=== PATIENT | female | born 2000 | race Caucasian/White ===

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

== ENCOUNTER 2023-04-04 11:18 | Outpatient (CLI) | payer OTHER, SELFPAY ==
[2023-04-04 12:49] LABS: Basophils Absolute Auto 0.1 K/mm3 (0.0-0.1); Basophils Percent Auto 0.8 % (0.2-1.2); Eosinophils Absolute Auto 0.2 K/mm3 (0-0.3); Eosinophils Percent Auto 1.8 % (0-4.4); Hematocrit 41.8 % (37.0-47.0); Hemoglobin 14.6 g/dL (12.0-15.0); Immature Granulocyte Absolute 0.04 K/mm3 (0.00-0.031); Immature Granulocyte Percent A 0.4 % (0-0.5); Lymphocytes Absolute Auto 2.61 K/mm3 (0.9-3.2); Lymphocytes Percent Auto 26.9 % (18.3-44.2); Mean Corpuscular HGB Conc 34.9 g/dl (32-36); Mean Corpuscular Volume 82.9 fl (80-100); Mean Platelet Volume 10.2 fl (7.4-10.4); Monocytes Absolute Auto 0.7 K/mm3 (0.1-0.6); Monocytes Percent Auto 6.7 % (2.6-8.5); Neutrophils Absolute Auto 6.2 K/mm3 (1.3-6.7); Neutrophils Percent Auto 63.4 % (45.5-73.1); Platelet Count Result 346 k/mm3 (150-375); Red Blood Count 5.04 M/mm3 (4.2-5.4); Red Cell Distribution Width 12.9 % (11.5-14.5); White Blood Count 9.7 K/mm3 (4.5-10.0)
[2023-04-04 12:57] LABS: Glucose 1 Hour PP 50gm Dose 135 mg/dL
[2023-04-04 13:39] LABS: HIV 1/2 Ab P24 Ag Result Negative (Negative)
[2023-04-04 13:41] LABS: Hepatitis B Surface Antigen Negative (Negative); Rubella IgG Antibody 11.5 IU/ML
[2023-04-07 13:16] LABS: Rapid Plasma Reagin Non-Reactive (NonReactive)
[2023-04-07 15:01] LABS: CMV IgG Antibody <0.60 U/mL (<0.60)
[2023-04-15 16:47] LABS: SMA 2.0 RISK VARIANT NOT DETECTED
[2023-04-16 14:16] LABS: CF Result NEGATIVE (NEGATIVE); Ethnicity NG
[2023-04-23 14:17] LABS: SMA Results Received Yes
== END 2023-04-04 11:19 | disposition home or self-care (01) ==
LOC: ANHLAB 11:19
PROVIDERS: PCP Internal Medicine Gastroenterology; Visit Provider Obstetrics & Gynecology
DX: N94.89 Other specified conditions associated with female genital organs and menstrual cycle (principal)
CPT/HCPCS: 36415; 81220; 81329; 82947; 84702; 85025; 86592; 86644; 86703; 86747; 86762; 86787; 86850; 86900; 86901; 87086; 87088; 87340; G0432

== ENCOUNTER 2023-04-25 18:16 | Emergency (ER) | payer OTHER, SELFPAY ==
[2023-04-25] VITALS (9 sets, daily range): BP systolic 90–130; BP diastolic 53–82; PULSE 57–69; RESP 16–18; TEMP 36.2–36.6; O2SAT 96–100
--- NOTE | 2023-04-25 18:33 | ED.NAVMDI ---
HPI - Nausea/Vomiting/Diarrhea General Chief complaint: Nausea/Vomiting/Diarrhea Stated complaint: Emesis Time Seen by Provider: 04/25/23 18:20 History of Present Illness HPI Narrative: Patient is a 22-year-old female who is currently about 8 weeks here for evaluation of nausea and vomiting x3 days. Patient states that she has been unable to tolerate any p.o. and has vomited after every meal or sips of fluids. Her last meal was [employer]. She denies sick contacts. She denies any abdominal pain, cramping, vaginal bleeding, diarrhea or constipation. Contacted her OB who recommended ED evaluation. First ultrasound was in the beginning of April and was normal. Related Data Home Medications Medication Instructions Recorded Confirmed sertraline 100 mg tablet (Zoloft) 100 mg PO DAILY 09/18/22 04/01/23 nitrofurantoin 100 mg PO Q12H 04/01/23 04/01/23 monohydrate/macrocrystals 100 mg capsule Allergies Allergy/AdvReac Type Severity Reaction Status Date / Time amoxicillin Allergy Unknown Unknown Verified 04/01/23 14:32 clavulanic acid Allergy Unknown Unknown Verified 04/01/23 14:32 Review of Systems Review of Systems: Gen.: Denies fevers or chills Eyes: Denies eye pain or visual change ENT: Denies congestion Respiratory: Denies shortness of breath or cough CV: Denies chest pain or palpitations GI: Reports nausea and vomiting denies burning, urgency, frequency or hematuria Musculoskeletal: Denies back pain or muscle pain Neuro: Denies numbness, tingling, weakness or focal weakness Skin: Denies rash Except as documented, all other systems reviewed and negative [facility] Past Medical History Medical History Acute erythematous tonsillitis Depression Ear infection UTI (urinary tract infection) Surgical History Surgical History History of dental surgery Family History Family History Grandparent Diabetes mellitus Hypertension Mother Bipolar 1 disorder Glaucoma Other Breast cancer Social History Social History (Updated 04/01/23 @ 14:34 by Jordana Talbot MA) Smoking status: Never smoker Alcohol intake: never Substance use: current Substance use type: marijuana Lack of Transportation: No Lack of Food: Never True Current Housing: I Have Housing Concerned About Future Housing: No Difficulty Paying Gas/Electric Bills: No Difficulty Paying for Meds: No Currently Unemployed: No Education: High School Diploma/GED Difficulty w/ Childcare or Family Care: No Living arrangements: with family Occupation/Education: occupation 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 CARDIOVASCULAR: Regular rate and rhythm without murmurs rubs or gallops. ABDOMINAL: Soft, nontender, nondistended, no rebound or guarding MUSCULOSKELETAL: Moves all extremities. No clubbing, cyanosis or edema. NEURO: Awake and alert. Following commands, speech normal, no focal deficits SKIN:: Warm, dry. No rashes lesions or abrasions PSYCHIATRIC: Normal affect/mood, Course Vital Signs Vital signs: Vital Signs Temperature 97.1 F L 04/25/23 18:18 Pulse Rate 69 04/25/23 18:18 Respiratory Rate 16 04/25/23 18:18 Blood Pressure 130/81 04/25/23 18:18 Pulse Oximetry 100 04/25/23 18:18 Oxygen Delivery Room Air 04/25/23 18:18 Temperature 98 F 04/25/23 19:27 Pulse Rate 61 04/25/23 19:27 Respiratory Rate 16 04/25/23 19:27 Blood Press
[2023-04-25] MEDS: FAMOTIDINE 20 MG/2 ML VIAL IV PUSH (18:39)
[2023-04-25] MEDS: METOCLOPRAMIDE HCL INJ 10 MG/2 ML VIAL IV PUSH (18:40)
[2023-04-25] MEDS: diphenhydrAMINE HCl INJ 50 MG/ML VIAL 12.5 MG IV PUSH (18:40)
[2023-04-25] MEDS: LACTATED RINGERS 1,000 ML 999 ML IV CONT ×2 (18:40→20:16)
[2023-04-25 18:54] LABS: Basophils Absolute Auto 0.1 K/mm3 (0.0-0.1); Basophils Percent Auto 0.5 % (0.2-1.2); Eosinophils Absolute Auto 0.1 K/mm3 (0-0.3); Eosinophils Percent Auto 0.5 % (0-4.4); Hemoglobin 14.8 g/dL (12.0-15.0); Immature Granulocyte Absolute 0.07 K/mm3 (0.00-0.031); Immature Granulocyte Percent A 0.5 % (0-0.5); Lymphocytes Absolute Auto 2.15 K/mm3 (0.9-3.2); Lymphocytes Percent Auto 14.7 % (18.3-44.2); Mean Corpuscular HGB Conc 34.4 g/dl (32-36); Mean Corpuscular Volume 84.1 fl (80-100); Mean Platelet Volume 9.6 fl (7.4-10.4); Monocytes Absolute Auto 0.7 K/mm3 (0.1-0.6); Monocytes Percent Auto 4.6 % (2.6-8.5); Neutrophils Absolute Auto 11.6 K/mm3 (1.3-6.7); Neutrophils Percent Auto 79.2 % (45.5-73.1); Platelet Count Result 400 k/mm3 (150-375); Red Blood Count 5.11 M/mm3 (4.2-5.4); Red Cell Distribution Width 12.6 % (11.5-14.5); White Blood Count 14.6 K/mm3 (4.5-10.0)
[2023-04-25 19:04] LABS: Alanine Aminotransferase 42 U/L (6-35); Albumin Level 4.1 g/dL (3.5-5.1); Alkaline Phosphatase 81 U/L (38-126); Anion Gap 11 mmol/L (8-16); Aspartate Amino Transferase 29 U/L (14-36); Bilirubin,Total 0.6 mg/dL (0.2-1.3); Blood Urea Nitrogen 7 mg/dL (7-17); Calcium 8.7 mg/dL (8.4-10.2); Carbon Dioxide 24 mmol/L (22-30); Chloride 103 mmol/L (98-107); Estimated CRCL calculation 176 ml/min; Estimated Glomerular Filt Rate > 60; Glucose 92 mg/dL (65-110); Magnesium 1.9 mg/dL (1.6-2.3); Potassium 3.6 mmol/L (3.4-5.0); Sodium 138 mmol/L (137-145)
[2023-04-25 19:47] LABS: Appearance Urine Turbid (Clear); Bacteria Urine 4+ /hpf; Bilirubin Urine 1+ (Negative); Blood Urine Negative (Negative); Color Urine Dark Yellow (Yellow); Glucose Urine UA Negative (Negative); Ketones Urine 4+ mg/dL (Negative); Leukocyte Esterase Ur 2+ LEU/UL (Negative); Mucus Urine Present /lpf; Nitrate Urine Negative (Negative); Protein Urine 2+ mg/dL (Negative); RBC Urine 0-2 /hpf (0-2); Specific Grav Ur 1.026 (1.001-1.035); Squamous Epithelial Cell Urine Many /hpf (Few); WBC Urine 51-100 /hpf; pH Urine 6.5 (5.0-9.0)
[2023-04-25 19:57] LABS: Add Urine Microscopic? YES
== END 2023-04-25 20:55 | disposition home or self-care (01) ==
PROVIDERS: Emergency Provider Physician Assistant
DX: O21.0 Mild hyperemesis gravidarum (principal); Z3A.08 8 weeks gestation of pregnancy; O23.41 Unspecified infection of urinary tract in pregnancy, first trimester; N39.0 Urinary tract infection, site not specified
CPT/HCPCS: 36415; 80053; 81001; 83735; 85025; 87086; 87088; 96361; 96374; 96375; 99284; J1200; J2765; J7120

== ENCOUNTER 2023-05-22 07:06 | Outpatient (CLI) | payer OTHER, SELFPAY ==
[2023-05-22 07:53] LABS: Glucose Fasting Gestational 102 mg/dL (>/=95)
== END 2023-05-22 07:07 | disposition home or self-care (01) ==
PROVIDERS: Visit Provider Obstetrics & Gynecology
DX: Z34.90 Encounter for supervision of normal pregnancy, unspecified, unspecified trimester (principal)
CPT/HCPCS: 36415; 82105; 82677; 82951; 82952; 84702; 86336

== ENCOUNTER 2023-06-02 07:04 | Outpatient (CLI) | payer OTHER, SELFPAY ==
[2023-06-02 08:08] LABS: Glucose Fasting Gestational 102 mg/dL (>/=95)
== END 2023-06-02 07:05 | disposition home or self-care (01) ==
LOC: ANHLAB 07:05
PROVIDERS: Visit Provider Obstetrics & Gynecology
DX: R73.09 Other abnormal glucose (principal)
CPT/HCPCS: 36415; 82951; 82952

== ENCOUNTER 2024-01-13 22:34 | Emergency (ER) | payer OTHER, SELFPAY ==
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
[2024-01-13 22:36] VITALS: BP 141/97; PULSE 66; RESP 18; TEMP 37.1; O2SAT 100
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
[2024-01-13] MEDS: KETOROLAC 30 MG/ML VIAL (*BKC) IM (23:20)
[2024-01-14 00:42] VITALS: BP 115/86; PULSE 85; RESP 15; O2SAT 99
== END 2024-01-14 00:45 | disposition home or self-care (01) ==
PROVIDERS: Emergency Provider Physician Assistant; PCP Family Medicine
DX: S13.4XXA Sprain of ligaments of cervical spine, initial encounter (principal); F32.A Depression, unspecified; Z87.440 Personal history of urinary (tract) infections; V49.40XA Driver injured in collision with unspecified motor vehicles in traffic accident, initial encounter
CPT/HCPCS: 72125; 72131; 96372; 99284; J1885

== ENCOUNTER 2024-03-06 14:09 | Emergency (ER) | payer OTHER, SELFPAY ==
--- NOTE | ~2024-03-06 | XR_ITS ---
EXAM: XR ankle LT min 3V DATE: 03/06/2024 14:30 HISTORY: rolled in hole today,lateral pain . COMPARISON: None available. FINDINGS: Normal mineralization. No fracture or dislocation. No lytic or blastic lesion. Joint space s are maintained. No erosion or periosteal change. Soft tissues within normal limits. IMPRESSION: No acute osseous finding in the left ankle. Reviewed, dictated and finalized at location K.
[2024-03-06 14:19] VITALS: BP 114/68; PULSE 74; RESP 16; TEMP 36.3; O2SAT 99
--- NOTE | 2024-03-06 14:43 | ED.LOWEXIN ---
HPI - Extremity Injury (Lower) General Chief Complaint: Extremity Injury, Lower Stated Complaint: stepped in a hole/rolled left ankle Time Seen by Provider: 03/06/24 14:39 Source: patient and RN notes reviewed Mode of arrival: ambulatory Limitations: no limitations History of Present Illness HPI Narrative: Patient presents today complaining of left lateral ankle pain. Approximately 1 hour prior to arrival, patient was walking outside her work and rolled her ankle in a hole. Denies numbness or tingling in the leg or foot. Currently rates her pain 5/10, which increases with weight-bearing. She took a dose of Tylenol prior to arrival, which did provide some relief. Related Data Home Medications Medication Instructions Recorded Confirmed labetalol 200 mg tablet 200 mg PO DAILY 03/06/24 03/06/24 norethindrone (contraceptive) 0.35 0.35 mg PO DAILY 03/06/24 03/06/24 mg tablet Allergies Allergy/AdvReac Type Severity Reaction Status Date / Time amoxicillin AdvReac Mild Hives Verified 03/06/24 14:26 clavulanic acid AdvReac Mild Hives Verified 03/06/24 14:26 Review of Systems Review of Systems: CONSTITUTIONAL: Denies body aches, fever, chills, or sweats. EYES: Denies visual changes, redness, or discharge. ENT: Denies rhinorrhea, congestion, sore throat, or otalgia. CARDIOVASCULAR: Denies chest pain, palpitations, or edema. RESPIRATORY: Denies cough or dyspnea. GASTROINTESTINAL: Denies abdominal pain, nausea, vomiting, or diarrhea. GENITOURINARY: Denies dysuria or hematuria. SKIN: Denies rash, itching, or wounds. MUSCULOSKELETAL: Denies back pain, or myalgia.+ left ankle injury NEUROLOGIC: Denies headache, numbness, tingling, or weakness. PSYCH: Denies depression or anxiety. [facility] Past Medical History Medical History Acute erythematous tonsillitis Depression Ear infection UTI (urinary tract infection) Vaginal discharge Surgical History Surgical History History of dental surgery Family History Family History Grandparent Diabetes mellitus Hypertension Mother Bipolar 1 disorder Glaucoma Other Breast cancer Social History Social History Smoking status: Never smoker Alcohol intake: never Substance use: current Substance use type: marijuana Lack of Transportation: No Lack of Food: Never True Current Housing: I Have Housing Concerned About Future Housing: No Difficulty Paying Gas/Electric Bills: No Difficulty Paying for Meds: No Currently Unemployed: No Education: High School Diploma/GED Difficulty w/ Childcare or Family Care: No Living arrangements: with family Occupation/Education: occupation 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 Please see nursing chart for further information. There is no relevant family history pertinent to the presenting complaint Exam Narrative: GENERAL: Well-appearing, well-nourished, and in no acute distress. HEAD: Normocephalic, atraumatic. EYES: EOMI. No redness or drainage. Conjunctivae normal. ENT: Mucous membranes pink and moist. NECK: Normal AROM. CHEST: No respiratory distress. EXTREMITIES: Left ankle: Tenderness to the lateral ankle with mild edema. No tenderness anteriorly, medially, posteriorly. Distal sensation intact. Capillary refill normal. Pedal pulse normal. Full range of motion of the ankle with pain with extension and external rotation. Color normal SKIN: Warm, dry, no rash. Capillary refill
== END 2024-03-06 15:13 | disposition home or self-care (01) ==
PROVIDERS: Emergency Provider Nurse Practitioner; PCP Family Medicine
DX: S93.402A Sprain of unspecified ligament of left ankle, initial encounter (principal); X50.9XXA Other and unspecified overexertion or strenuous movements or postures, initial encounter; F12.90 Cannabis use, unspecified, uncomplicated
CPT/HCPCS: 73610; 99213; G0463

== ENCOUNTER 2024-03-12 12:58 | Emergency (ER) | payer OTHER, SELFPAY ==
[2024-03-12 13:02] VITALS: BP 127/86; PULSE 59; RESP 17; TEMP 36.5; O2SAT 100
--- NOTE | 2024-03-12 13:43 | ED.EYEPROB ---
HPI - Eye Problem General Chief complaint: Eye Problems Stated complaint: foreign body in right eye Time Seen by Provider: 03/12/24 13:13 Source: patient Mode of arrival: ambulatory Limitations: no limitations History of Present Illness HPI Narrative: Patient is a 23-year-old female who presents the ED with report of foreign body to her right eye. Patient reports she was weed whacking just prior to arrival when she felt a piece of grass fly into her right eye. She was unable to remove or find the foreign body. Complains of pain to her eye. Denies vision changes. Reports watery drainage. Related Data Home Medications Medication Instructions Recorded Confirmed labetalol 200 mg tablet 200 mg PO DAILY 03/06/24 03/06/24 norethindrone (contraceptive) 0.35 0.35 mg PO DAILY 03/06/24 03/06/24 mg tablet Allergies Allergy/AdvReac Type Severity Reaction Status Date / Time amoxicillin AdvReac Mild Hives Verified 03/12/24 13:04 clavulanic acid AdvReac Mild Hives Verified 03/12/24 13:04 Review of Systems Review of Systems: CONSTITUTIONAL: Denies fever, chills, or sweats. ENT: See HPI. CARDIOVASCULAR: Denies chest pain. RESPIRATORY: Denies dyspnea. All systems reviewed & are unremarkable except as noted in HPI and below PMFSH Past Medical History Medical History Acute erythematous tonsillitis Depression Ear infection UTI (urinary tract infection) Vaginal discharge Surgical History Surgical History History of dental surgery Family History Family History Grandparent Diabetes mellitus Hypertension Mother Bipolar 1 disorder Glaucoma Other Breast cancer Social History Social History Smoking status: Never smoker Alcohol intake: never Substance use: current Substance use type: marijuana Lack of Transportation: No Lack of Food: Never True Current Housing: I Have Housing Concerned About Future Housing: No Difficulty Paying Gas/Electric Bills: No Difficulty Paying for Meds: No Currently Unemployed: No Education: High School Diploma/GED Difficulty w/ Childcare or Family Care: No Living arrangements: with family Occupation/Education: occupation 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 HEAD: Normocephalic, atraumatic. EYES: PERRL/EOMI, mild R conjunctival injection. Minimal serous drainage. Grass-like FB to medial eye. RESPIRATORY: Airway patent, respirations nonlabored. CARDIOVASCULAR: Regular rate and rhythm MUSCULOSKELETAL: Moves all extremities. No gross deformities. SKIN: Warm, dry, normal color. NEURO: A&O X3. Speech clear. PSYCHIATRIC: Appropriate mood and affect. Normal interaction. Course Vital Signs Vital signs: Vital Signs Temperature 97.7 F 03/12/24 13:02 Pulse Rate 59 L 03/12/24 13:02 Respiratory Rate 17 03/12/24 13:02 Blood Pressure 127/86 03/12/24 13:02 Pulse Oximetry 100 03/12/24 13:02 Oxygen Delivery Room Air 03/12/24 13:02 Temperature 97.7 F 03/12/24 13:02 Pulse Rate 87 03/12/24 14:02 Respiratory Rate 18 03/12/24 14:02 Blood Pressure 124/93 H 03/12/24 14:02 Pulse Oximetry 99 03/12/24 14:02 Oxygen Delivery Room Air 03/12/24 13:02 MDM - Eye Problem MDM Narrative Medical decision making narrative: Patient denies vision changes. Visual acuity equal bilaterally. Obvious foreign body/grass-like material in medial corner of eye. Removed with Q-tip. Re-evaluation with lid eversion does not reveal any further foreign bodies
[2024-03-12] MEDS: OFLOXACIN 0.3% OPHTH SOLN 5 ML BTL 2 DROP RIGHT EYE (13:57)
[2024-03-12 14:02] VITALS: BP 124/93; PULSE 87; RESP 18; O2SAT 99
== END 2024-03-12 14:04 | disposition home or self-care (01) ==
LOC: ANHED 13:53
PROVIDERS: Emergency Provider Physician Assistant; PCP Family Medicine
DX: T15.01XA Foreign body in cornea, right eye, initial encounter (principal); Z87.440 Personal history of urinary (tract) infections; W44.8XXA Other foreign body entering into or through a natural orifice, initial encounter
CPT/HCPCS: 65220; 99283; A9270

== ENCOUNTER 2025-02-16 17:19 | Emergency (ER) | payer OTHER, SELFPAY ==
[2025-02-16] VITALS (15 sets, daily range): BP systolic 98–120; BP diastolic 50–88; PULSE 64–100; RESP 10–18; TEMP 36.4–36.8; O2SAT 99–100
--- NOTE | ~2025-02-16 | CT_ITS ---
CT abdomen pelvis w con Ordering provider: Ana Dunbar PA-C History: 24 years Female with . upper abd pain, n/v/d . Comparison: 10/01/2021 Technique: CT abdomen and pelvis with IV and without oral contrast. Automated exposure control and it erative reconstruction technique were employed. The dose-length product was 1240.05 mGy-cm. 100 mL Om nipaque 350 was given IV. Findings: VISUALIZED LOWER CHEST: Normal. UPPER ABDOMINAL ORGANS: Liver: Hepatomegaly Gallbladder: Normal. Spleen: Normal. Stomach/duodenum: Normal. Pancreas: Normal. Adrenals: Normal. Kidneys: Normal. PELVIC ORGANS: The bladder is underfilled. BOWEL AND MESENTERY: Colon: No evidence of diverticulitis.. Fluid is seen in the large bowel which may indicate diarrhea v ersus enteritis. Clinical correlation advised.The appendix is not demonstrated. Small Bowel: Normal. No obstruction. Peritoneum/mesentery: No free air or free fluid. No mesenteric lymphadenopathy. Small mesenteric lymp h nodes. RETROPERITONEUM: Normal aorta. No retroperitoneal lymphadenopathy. MUSCULOSKELETAL: Superficial soft tissues: The superficial soft tissues are normal. Bones: Normal spine. IMPRESSION: 1. No evidence of appendicitis, diverticulitis or intestinal obstruction. 2. Fluid in the large bowel suggestive of diarrhea versus enteritis. 3. Hepatomegaly. Reviewed, dictated and finalized at location A.
--- OUTSIDE RECORDS SUMMARY | 2025-02-16 17:22 | XMS_ITS | Referral Summary ---
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 12/12/2023 06/21/2024 Overview (01/30/2024): - -Mood- EPDS 11 (never to last question) Discussed s/s of depression and resources. Encouraged to call provider with any mood changes or concerns. -Contraception- Discussed pills, patch, ring, nexplanon, IUDs. Discussed risks/benefits, SE profile of each. Patient chooses: considering COCs -F/U- RTC PRN or for annual WWE UTI symptoms 12/12/2023 06/21/2024 Overview (12/12/2023): 11/29/23: Was treated while inpatient L&D with Macrobid (Ucx contaminated) 12/12/23: Continues to be symptomatic 2+ protein, 3+ leuk in urine Rx Keflex considering urine dip and symptoms Ucx pending, will f/u with susceptibilities Encounter for induction of labor 11/29/2023 06/21/2024 Overview (11/29/2023): Isabella Waldron is a 22 y.o. female at 39w0d who is dated by L=1 and is being admitted for IOL secondary to cHTN . Admit to L&D: Consents signed and placed in chart. Labs: CBC and T&S pending. Induction of labor with oxytocin . FWB: Continuous monitoring. Reactive NST. ID: 3rd trimester HIV (>28 wga) negative on 11/11. GBS negative on 11/11 . RPR on admission: pending. History of genital HSV or HSV 1/2 seropositivity: No. Membrane Status: intact. Indications for UDS: none. Verbal consent obtained for UDS: Not indicated. MOF: Plans to both breast and formula feed. Urine drug screen not indicated. Patient informed of results: N/A. MOC: Undecided on contraception. Pain management: Desires epidural. Post DVT prophylaxis: The patient has the following MAJOR risk factors none and the following MINOR risk factors BMI 30-39 and nicotine use. enoxaparin 40 mg daily will be ordered for VTE prophylaxis . cHTN: on no meds, baseline normal CBC, CMP, UPC. Admit labs pending. Vaping: Vapes nicotine daily. Offer nicotine patch PRN Dysuria: UCx contaminated, UA 3+ LE. Continue Macrobid. care and examination 11/29/2023 06/21/2024 Overview (12/01/2023): # ID: Afebrile. No signs/symptoms of infection. # Heme: Hgb 14.2 > EBL 250 mL. Hemodynamically stable. # CV/Pulm: Chronic hypertension - Blood pressures well controlled on no meds. Asymptomatic, denies FONTANA/RUQ pain/vision changes. CBC/CMP wnl, UPC 0.16. Consented in remote BP monitoring- received text. BP largely normotensive in the last 24 hours. # GI/: Tolerating PO. Voiding spontaneously. #Dysuria: with 3+ LE at clinic visit, UCx contaminated, started on Macrobid. Continue for 7 day course. Symptoms improving. # Pain: Controlled with above regimen. # MOC: Declines until visit. # MOF: Both formula and . Urine drug screen not indicated. Patient informed of results: N/A. # Post DVT prophylaxis: The patient has the following MAJOR risk factors none and the following MINOR risk factors BMI 30-39, nicotine use. enoxaparin 40 mg daily ordered for VTE prophylaxis. # Vaping: Vapes nicotine daily, offer nicotine patches PRN. # Disposition: Follow up task sent to [facility] scheduling pool. Desires discharge home today. Leukocytes in urine 11/18/2023 06/21/20 Overview (11/20/2023): 11/18/23: 3+ leuks in urine at return OB visit Reports urethral irritation Ucx pending Rx Macrobid pending susceptibilities, given symptomatic Gestational proteinuria, antepartum 10/14/2023 06/21/2024 Overview (10/14/2023): Noted proteinuria 1+ Denies neuro symptoms & RUQ pain No edema BP normotensive Baseline Pre-E labs WNL Consider gestational proteinuria and CTM urine dips in clinic CTM for s/s Pre-E Physical exam, annual 07/29/20232023 Assessment & Plan (07/29/2023 10:36 AM CDT): Discussed lifestyle modifications, diet and exercise. Routine blood work ordered/reviewed today. Yearly vision and dental examinations. Rash 07/29/2023 06/21/2024 Overview (07/29/2023): triamcinolone (KENALOG) 0.1 % cream BID Vaginal discharge 11/08/2022 06/24/2023 Assessment & Plan (11/08/2022 9:02 PM CARB[employer] F[employer]NA[employer] OPERATOR HELPER): Self swab done for vaginitis panel. Results came back positive for BV. Patient made aware and treated with Flagyl. Painful urination 11/08/2022 06/24/2023 Assessment & Plan (11/08/2022 9:04 PM [employer] FURNA[employer] OPERATOR HELPER): Urine sent for culture. Treated for UTI with Cipro b.i.d. for 7 days. However urine culture came back negative, patient made aware and told her she could discontinue the Cipro. Prediabetes 10/08/2022 10/08/2022 Disorder of shoulder 04/18/2022 024 Dysmenorrhea 04/18/2022 06/21/2024 Wrist joint pain 04/18/2022 06/21/2024 Class 2 obesity with body ma ss index (BMI) of 36.0 to 36.9 in adult 03/07/2022 06/24/2023 Assessment & Plan (02/17/2023 2:29 PM CDT): Wt Readings from Last 3 Encounters: 02/17/23 106.1 kg (234 lb) 12/31/22 107 kg (236 lb) 11/08/22 108 kg (238 lb) (>99 %, Z= 2.41)* * Growth percentiles are based on CDC (Girls, 2-20 Years) data. BMI Readings from Last 3 Encounters: 02/17/23 38.94 kg/m 12/31/22 39.27 kg/m 11/08/22 39.61 kg/m (98 %, Z= 2.11)* * Growth percentiles are based on CDC (Girls, 2-20 Years) data. Not at goal of bmi <30 Continue diet and exercise BMI Follow-up includes: nutrition counseling and exercise counseling. Assessment & Plan (01/23/2023 11:11 AM CDT): Wt Readings from Last 3 Encounters: 12/31/22 107 kg (236 lb) 11/08/22 108 kg (238 lb) (>99 %, Z= 2.41)* 11/05/22 108 kg (238 lb) (>99 %, Z= 2.41)* * Growth percentiles are based on CDC (Girls, 2-20 Years) data. BMI Readings from Last 3 Encounters: 12/31/22 39.27 kg/m 11/08/22 39.61 kg/m (98 %, Z= 2.11)* 11/05/22 38.44 kg/m (98 %, Z= 2.07)* * Growth percentiles are based on CDC (Girls, 2-20 Years) data. Not at goal of bmi <30 Continue diet and exercise BMI Follow-up includes: nutrition counseling and exercise counseling. Assessment & Plan (12/31/2022 11:15 AM CARBON FURNACE OPERATOR HELPER): Wt Readings from Last 3 Encounters: 12/31/22 107 kg (236 lb) 11/08/22 108 kg (238 lb) (>99 %, Z= 2.41)* 11/05/22 108 kg (238 lb) (>99 %, Z= 2.41)* * Growth percentiles are based on CDC (Girls, 2-20 Years) data. BMI Readings from Last 3 Encounters: 12/31/22 39.27 kg/m 11/08/22 39.61 kg/m (98 %, Z= 2.11)* 11/05/22 38.44 kg/m (98 %, Z= 2.07)* * Growth percentiles are based on CDC (Girls, 2-20 Years) data. Not at goal of bmi <30 Continue diet and exercise BMI Follow-up includes: nutrition counseling and exercise counseling. Assessment & Plan (10/08/2022 12:00 PM CARBON FURNACE OPERATOR HELPER): Wt Readings from Last 3 Encounters: 10/08/22 106.1 kg (234 lb) (>99 %, Z= 2.36)* 07/23/22 105.7 kg (233 lb) (>99 %, Z= 2.35)* 07/04/22 103.4 kg (228 lb) (99 %, Z= 2.30)* * Growth percentiles are based on CDC (Girls, 2-20 Years) data. BMI Readings from Last 3 Encounters: 10/08/22 37.79 kg/m (98 %, Z= 2.04)* 07/23/22 37.63 kg/m (98 %, Z= 2.05)* 07/04/22 36.80 kg/m (98 %, Z= 2.01)* * Growth percentiles are based on CDC (Girls, 2-20 Years) data. Not at goal of bmi <30 Continue diet and exercise BMI Follow-up includes: nutrition counseling and exercise counseling. Assessment & Plan (07/23/2022 10:33 AM CDT): BMI Follow-up includes: nutrition counseling and exercise counseling. Assessment & Plan (07/04/2022 1:06 PM CDT): BMI Follow-up includes: nutrition counseling and exercise counseling. Assessment & Plan (04/18/2022 3:52 PM CDT): BMI Follow-up includes: nutrition counseling and exercise counseling. Assessment & Plan (03/07/2022 9:56 AM CDT): HPI: Condition is not at/near goal A&P: Discussed/ordered labs, encouraged healthy, low carbohydrate lifestyle and at least 150min/week of exercise BMI Follow-up includes: nutrition counseling, exercise counseling and education provided. Current every day smoker 03/07/2022 Overview (06/24/2023): Discussed cessation, resources offered. Immunizations Immunization Administration Dates Next Due DTaP 03/02/2008, 4,06/27/2003,04/25,02/21/2003 HPV, Quadrivalent 10/14/2014,06/13/2014,04/12/20 14 Hep A, Ped Unspecified 11/11/2005,02/20/2005 Hep A, Pediatric 02/21/2004 Hep B / HiB 02/21/2003 Hep B, Adolescent or Pediatric 3,01/21/2003,01/17/2003,12/18 HiB 03/21/2004, 3,04/25/2003,02/21 IPV 03/02/2008, 4,04/25/2003,02/21 Influenza, Live, Intranasal, Quadrivalent 09/13/2014,09/02/2013,09/21/2012,09/05,08/08/2009 Influenza, Quadrivalent, Spl it, Preservative Free, Intramuscular 07/28/2018,08/11/2017,11/07/2016,10/10 Influenza, Unspecified 10/08/2022(Deferr ed: Patient Refused),08/03/2021(Deferred: Patient Refused),08/03/2020(Deferred: Patient Refused),12/12/2006,11/11/2006, 003 MMR 12/24/2024(Deferred: Patient Refused),12/01/2023(Deferred: No longer needed - Rubella immune, vaccine not required),03/02/2008,12/23/2003 Meningococcal Conjugate (Menveo) 08/02/2019 Meningococcal MCV4P (Menactra) 04/12/2014 Pneumococcal Conjugate 7-Valent 06/29/20 04,06/27/2003,04/25/2003,02/21 RSV, Bivalent, Protein Subun it Rsvpref, Diluent (Abrysvo) 11/11/2024 Tdap 10/13/2024,10/14/2023,04/12/2014 Varicella 12/01/2023(Deferred: No longer needed - Varicella unknown),06/13/2014,03/02/2008, 004 Social History Tobacco Use Types Packs/Day Years Used Date Smoking Tobacco: Every Day Vaping Smokeless Tobacco: Never Tobacco Cessation:Ready to Q uit: Not Asked; Counseling Given: Not Answered [facility] Utilities Answer Date Recorded In the past 12 months has th e electric, gas, oil, or water [employer] threatened to shut off services in your home? No 12/01/2023 Humiliation, Afraid, Rape, and Kick questionnair e Answer Date Recorded Within the last year, have y ou been afraid of your partner or ex-partner? No 05/21/2024 Within the last year, have y ou been humiliated or emotionally abused in other ways by your partner or ex-partner? No Within the last year, have y ou been kicked, hit, slapped, or otherwise physically hurt by your partner or ex-partner? No 05/21/2024 Within the last year, have y ou been raped or forced to have any kind of sexual activity by your partner or ex-partner? No 05/21/2024 Social Connection and Isolation Panel [NHANES] A nswer Date Recorded In a typical week, how many times do you talk on the phone with family, friends, or neighbors? Three times a week 12/23/2024 How often do you get togethe r with friends or relatives? Three times a week 12/23/2024 How often do you attend chur ch or yazidism services? Never 12/23/2024 Do you belong to any clubs o r organizations such as buddhist groups, unions, fraternal or athletic groups, or school groups? No 12/23/2024 How often do you attend meet ings of the clubs or organizations you belong to? Never 12/23/2024 Are you , , di vorced, , never , or living with a partner? Never 12/23/2024 AUDIT-C Answer Date Recorded Q1: How often do you have a drink containing alcohol? Never 05/21/2024 Q2: How many drinks containi ng alcohol do you have on a typical day when you are drinking? Patient does not drink Q3: How often do you have si x or more drinks on one occasion? Never 05/21/2024 Overall Financial Resource Strain (CARDIA) Answe r Date Recorded How hard is it for you to pa y for the very basics like food, housing, medical care, and heating? Not hard at all 12/23/2024 PHQ-2 Answer Date Recorded PHQ-2 Total Score (If total score is 3 or more points, staff should administer the PHQ-9) 0 12/27/2024 [facility] - Occupational Stress Questionnaire Answer Date Recorded Do you feel stress - tense, restless, nervous, or anxious, or unable to sleep at night because your mind is troubled all the time - these days? Not at all 05/21/2024 Exercise Vital Sign Answer Date Recorde d On average, how many days pe r week do you engage in moderate to strenuous exercise (like a brisk walk)? 1 day 05/21/2024 On average, how many minutes do you engage in exercise at this level? 30 min 05/21/2024 Hunger Vital Sign Answer Date Recorded Within the past 12 months, y ou worried that your food would run out before you got the money to buy more. Never true 02/04/20 25 Within the past 12 months, t he food you bought just didn't last and you didn't have money to get more. Never true 02/03/2025 PRAPARE - Transportation Answer Date Re corded In the past 12 months, has l ack of transportation kept you from medical appointments or from getting medications? No 12/05 In the past 12 months, has l ack of transportation kept you from meetings, work, or from getting things needed for daily living? No 12/23/2024 Housing Stability Vital Sign Answer Joshua e Recorded In the last 12 months, was t here a time when you were not able to pay the mortgage or rent on time? No 12/01/2023 In the last 12 months, how many places have you lived? 1 12/01/2023 In the last 12 months, was t here a time when you did not have a steady place to sleep or slept in a retirement (including now)? No 12/01/2023 Egnar Depression Scale Answer Date Recorded Egnar Depression Scale Total 6 02/03/2025 The thought of harming myself has occurred to me . Never 02/03/2025 PHQ-9 Answer Date Recorded PHQ-9 Total Score 0 12/27/2024 Housing Stability Vital Sign Answer Joshua e Recorded In the last 12 months, was t here a time when you were not able to pay the mortgage or rent on time? No 12/23/2024 In the past 12 months, how m any times have you moved where you were living? 1 12/23/2024 At any time in the past 12 m [facility], were you homeless or living in a retirement (including now)? No 12/23/2024 Personal Safety Answer Date Recorded Have you ever been in or are you currently in a harmful physical or emotional relationship or is someone making you feel afraid or unsafe? Denies 12/27/2024 Education Answer Date Recorded What is the highest level of school you have completed or the highest degree you have received? 9th grade 06/24/2023 Comments No Sex and Gender Information Value Date Recorded Sex Assigned at Not on file Legal Sex Female 12:21 PM CARB[employer] FURNACE OPERATOR HELPER Gender Identity Female 09/30/2022 1:11 AM CARB[employer] FURNACE OPERATOR HELPER Sexual Orientation Straight 02/06/2023 11 :12 PM CDT Occupation Industry Job Start Date Job End Date unemployed Not on file Not on file Not on file Last Filed Vital Signs Vital Sign Reading Time Taken Comments Blood Pressure 98/60 02/03/2025 11:04 AM CDT Pulse 59 02/03/2025 11:04 AM CDT Temperature 36.7 C (98.1 F) 02/03/2025 11:04 AM CDT Respiratory Rate 19 01/05/2025 12:5 9 PM [employer] FURNACE OPERATOR HELPER Oxygen Saturation 100% 02/03/2025 11: 04 AM CDT Inhaled Oxygen Concentration - - Weight 110.9 kg (244 lb 6.4 oz) 025 11:04 AM CDT Height 167.6 cm (5' 6 ) 12/22/2024 8:19 AM [employer] FURNACE OPERATOR HELPER Body Mass Index 39.45 12/22/2024 8:19 AM [employer] FURNACE OPERATOR HELPER Plan of Treatment Not on file Procedures Procedure Name Priority Date/Time Associated Diagnosis Comments POCT HCG, URINE Routine 02/03/2025 11:20 AM CDT Negative test URINE CULTURE Routine 01/05/2025 4:28 PM [employer] FURNACE OPERATOR HELPER Encounter for routine follow-up PROTEIN / CREATININE RATIO, URINE, RANDOM Routine 01/05/2025 3:06 PM [employer] FURNACE OPERATOR HELPER Encounter for routine follow-up EGFR Routine 01/05/2025 1:49 PM [employer] FURNACE OPERATOR HELPER Encounter for routine follow-up COMPREHENSIVE METABOLIC PANEL Routine 01/05/2025 1:49 PM [employer] FURNACE OPERATOR HELPER Encounter for routine follow-up CBC WITHOUT DIFFERENTIAL Routine 01/05/2025 1:49 PM CARB[employer] FURNACE OPERATOR HELPER Encounter for routine follow-up FL AN PROCEDURE PLACEHOLDER Routine 12/22/2024 3:08 PM [employer] FURNACE OPERATOR HELPER PROTEIN / CREATININE RATIO, URINE, RANDOM Routine 12/22/2024 10:04 AM [employer] FURNACE OPERATOR HELPER EGFR STAT 12/22/2024 9:19 AM [employer] F[employer]NACE OPERATOR HELPER URIC ACID Routine 12/22/2024 9:19 AM [employer] FURNACE OPERATOR HELPER COMPREHENSIVE METABOLIC PANEL STAT 12/22/2024 9:19 AM [employer] FURNACE OPERATOR HELPER CBC WITHOUT DIFFERENTIAL STAT 12/22/2024 9:19 AM [employer] FURNACE OPERATOR HELPER TYPE AND SCREEN STAT 12/22/2024 9:19 AM CAR[employer] FURNACE OPERATOR HELPER RPR STAT 12/22/2024 9:19 AM CARB[employer] FURNACE OPERATOR HELPER US OB LIMITED IP Routine 12/22/2024 8:59 AM [employer] FURNACE OPERATOR HELPER Encounter for induction of labor URINE CULTURE STAT 12/17/2024 9:54 PM CARBON FURNACE OPERATOR HELPER POCT URINALYSIS (CLINITEK) Routine 12/17/2024 9:45 PM CARB[employer] FURNACE OPERATOR HELPER EGFR STAT 12/12/2024 8:27 PM CARB[employer] FURNACE OPERATOR HELPER PROTEIN / CREATININE RATIO, URINE, RANDOM STAT 12/12/2024 8:27 PM [employer] FURNACE OPERATOR HELPER COMPREHENSIVE METABOLIC PANEL STAT 12/12/2024 8:27 PM CARBON FURNACE OPERATOR HELPER CBC WITHOUT DIFFERENTIAL STAT 12/12/2024 8:27 PM CARBON FURNACE OPERATOR HELPER N. GONORRHOEAE/C. TRACHOMATIS AMPLIFICATION Routine 12/09/2024 2:28 PM CARBON FURNACE OPERATOR HELPER , unspecified gestational age TRICHOMONAS VAGINALIS PCR Routine 12/09/2024 2:28 PM CARBON FURNACE OPERATOR HELPER , unspecified gestational age TYPE AND SCREEN Routine 12/09/2024 11:38 AM CARB[employer] FURNACE OPERATOR HELPER , unspecified gestational age EGFR Routine 12/09/2024 11:35 AM CAR[employer] FURNACE OPERATOR HELPER Supervision of other normal , antepartum CBC WITHOUT DIFFERENTIAL Routine 12/09/2024 11:35 AM CAR[employer] FURNACE OPERATOR HELPER , unspecified gestational age COMPREHENSIVE METABOLIC PANEL Routine 12/09/2024 11:35 AM CARBON FURNACE OPERATOR HELPER Supervision of other normal , antepartum HIV 1/2 ANTIBODY PLUS P24 ANTIGEN Routine 12/09/2024 11:35 AM CAR[employer] FURNACE OPERATOR HELPER , unspecified gestational age RPR Routine 12/09/2024 11:35 AM CAR[employer] FURNACE OPERATOR HELPER , unspecified gestational age GROUP B STREPTOCOCCUS CULTURE Routine 12/09/2024 11:09 AM CARBON FURNACE OPERATOR HELPER OB FOLLOW UP Schedule Routine, Read Routine (OP Routine) 12/09/2024 10:28 AM CARB[employer] FURNACE OPERATOR HELPER Supervision of other normal , antepartum RESPIRATORY PATHOGEN PANEL Routine 11/30/2024 4:10 PM CAR[employer]ON FURNACE OPERATOR HELPER ECG 12-LEAD Routine 11/30/2024 3:59 PM CARBON FURNACE OPERATOR HELPER POCT URINALYSIS (CLINITEK) Routine 11/30/2024 3:57 PM CARBON FURNACE OPERATOR HELPER TRICHOMONAS VAGINALIS PCR STAT 11/23/2024 3:51 PM CARBON FURNACE OPERATOR HELPER N. GONORRHOEAE/C. TRACHOMATIS AMPLIFICATION STAT 11/23/2024 3:51 PM CARBON FURNACE OPERATOR HELPER EGFR STAT 11/23/2024 2:39 PM CARBON FURNACE OPERATOR HELPER DIFFERENTIAL AUTO STAT 11/23/2024 2:3 9 PM CARBON FURNACE OPERATOR HELPER PROTEIN / CREATININE RATIO, URINE, RANDOM STAT 11/23/2024 2:39 PM CAR[employer]ON FURNACE OPERATOR HELPER COMPREHENSIVE METABOLIC PANEL STAT 11/23/2024 2:39 PM CARBON FURNACE OPERATOR HELPER CBC WITH AUTO DIFFERENTIAL STAT 11/23/2024 2:39 PM CARBON FURNACE OPERATOR HELPER HEPATITIS C ANTIBODY Routine 05/21/2024 12:00 PM CDT Encounter for supervision of normal , antepartum, unspecified PAP ONLY Routine 01/30/2024 11:27 AM CDT Encounter for routine follow-up from Last 3 Months or Most Recently Relevant to Health Maintenance Results * POCT hCG, urine (02/03/2025 11:20 AM CDT) HCG, ur, POC Negative Negative Lot Number [id number] QC Backgroud Clear Acceptable QC Control Line Acceptable Urine 02/03/2025 11:2 0 AM CDT Noreen Rucker TRUCK LOADER POINT OF CARE TEST ORDERABL ES Final Result * Urine culture Urine, clean voided (01/05/2025 4:28 PM CARBON FURNACE OPERATOR HELPER) Report Final Report: Less than 100,000 colonies/mL (clinically insignificant growth based on current clinical standards) Organism (CLINIC[facility]IGN[facility] Urine, clean voided 01/05/2025 4:28 PM CARBON FURNACE OPERATOR HELPER 01/05/2025 5:06 PM CARBON FURNACE OPERATOR HELPER Narrative [facility] - 01/06/2025 6:30 PM CARBON FURNACE OPERATOR HELPER Testing performed by [facility] ([phone]) us Noreen Rucker LAB MICROBIOLOGY - GENERAL ORDERABLES Final Result Performing Organization Address [facility] Co de Phone Number [facility] [place] [address] * Protein / creatinine ratio, urine, random (01/05/2025 3:06 PM CARBON FURNACE OPERATOR HELPER) Protein, ur, quant 13.6 mg/dL Comment: Interpretive Data No reference range established. Current interpretive data was last revised 2019. Creatinine Ur 95.0 mg/dL [facility] Comment: Interpretive Data No reference range established. Current interpretive data was last revised 2019. Protein/creatinin e ratio 143.2 0.0 - 180.0 mg/g CR [facility] Urine 01/05/2025 3:06 PM CARBON FURNACE OPERATOR HELPER 01/05/2025 4:44 PM CARBON FURNACE OPERATOR HELPER Noreen Rucker LAB URINE ORDERABLES Final Result Performing Organization Address [facility] de Phone Number [facility] [place] [address] * eGFR (01/05/2025 1:49 PM CARBON FURNACE OPERATOR HELPER) Pathologist [facility] eGFR >90 >=60 mL/min/1. 73 m2 Comment: Interpretive Data Reference Interval Normal >/= 90 mL/min/1.73m2 Mildly decreased* 60 - 89 mL/min/1.73m2 Mildly to moderately decreased 45 - 59 mL/min/1.73m2 Moderately to severely decreased 30 - 44 mL/min/1.73m2 Severely decreased 15 - 29 mL/min/1.73m2 Kidney Failure < 15 mL/min/1.73m2 *Relative to young adult level Estimated glomerular filtration rate is determined by the 2020 CKD-EPI equation recommended by the National Kidney Foundation (A Unifying Approach to GFR Estimation: Recommendations of the NKF-ASK Task Force on Reassessing the Inclusion of Race in Diagnosing Kidney Disease, JASN 2020). The CKD-EPI equation should not be used for patients with unstable renal function and has not been validated in children and those over 70. Current interpretive data was last reviewed 2021. Blood 01/05/2025 1:49 PM CARBON FURNACE OPERATOR HELPER 01/05/2025 2:47 PM CARBON FURNACE OPERATOR HELPER Noreen Rucker TRUCK LOADER LAB BLOOD ORDERABLES Final Result Performing Organization Address City/[facility]/ZIP Co de Phone Number [facility] [place] [address] * (ABNORMAL) CBC without differential (01/05/2025 1:49 PM CARBON FURNACE OPERATOR HELPER) WBC 11.3(H) 3.8 - 9.9 K/cumm Hgb 12.4 11.9 - 15.5 g/dL [facility] Hct 40.8 35.6 - 45.5 % [facility] Plt 434(H) 150 - 400 K/cumm [facility] MPV 10.3 9.1 - 12.3 fL [facility] RBC 5.44(H) 3.90 - 5.20 M/cumm [facility] MCV 75.0(L) 81.3 - 96.4 fL [facility] MCH 22.8(L) 27.1 - 33.3 pg [facility] MCHC 30.4(L) 32.3 - 35.7 g/dL [facility] RDW CV 14.8 11.1 - 14.9 % [facility] RDW SD 39.9 35.7 - 48.1 fL [facility] NRBC abs 0.00 0.00 - 0.01 K/cumm [facility] Blood 01/05/2025 1:49 PM CARBON FURNACE OPERATOR HELPER 01/05/2025 2:47 PM CARBON FURNACE OPERATOR HELPER Noreen Rucker TRUCK LOADER LAB BLOOD ORDERABLES Final Result Performing Organization Address City/[facility]/ZIP Co de Phone Number [facility] [place] [address] * (ABNORMAL) Comprehensive metabolic panel (01/05/2025 1:49 PM CARBON FURNACE OPERATOR HELPER) Sodium 145 135 - 145 mmol/L Potassium, pl 4.1 3.3 - 4.9 mmol/L [facility] Chloride 106 97 - 110 mmol/L [facility] [facility] CO2 28 22 - 32 mmol/L [facility] Anion gap 11 2 - 15 mmol/L [facility] BUN 14 6 - 25 mg/dL [facility] Creatinine 0.76 0.60 - 1.10 mg/dL [facility] Glucose 88 70 - 199 mg/dL [facility] Comment: Interpretive Data Fasting glucose >/= 126 mg/dl is diagnostic for diabetes. Fasting is defined as no caloric intake for at least 8 hours. Fasting glucose between 100 mg/dl to 125 mg/dl is diagnostic of prediabetes. In a patient with classic symptoms of hyperglycemia or hyperglycemic crisis, a random glucose >/= 200 mg/dl is diagnostic for diabetes. In the absence of unequivocal hyperglycemia, results should be confirmed by repeat testing. The classification and Diagnosis of Diabetes Diabetes Care 2021; 46: S19-S40. Current interpretive data was last revised 2022. Calcium 8.9 8.5 - 10.3 mg/dL [facility] Bilirubin, total <0.2 0.1 - 1.2 mg/dL [facility] Comment:Reviewed Protein, pl 7.0 6.5 - 8.5 g/dL [facility] Albumin 3.7 3.5 - 5.0 g/dL [facility] Alk phos 156(H) 40 - 130 Units/L [facility] ALT 36 7 - 45 Units/L [facility] Comment:Reviewed AST 34 10 - 45 Units/L [facility] Blood 01/05/2025 1:49 PM CARBON FURNACE OPERATOR HELPER 01/05/2025 2:47 PM CARBON FURNACE OPERATOR HELPER Noreen Rucker NP LAB BLOOD ORDERABLES Final Result [facility] [place] [address] * FL AN PROCEDURE PLACEHOLDER (12/22/2024 3:08 PM CARBON FURNACE OPERATOR HELPER) Narrative Nhan Olivia CRNA - 12/22/2024 3:08 PM CARBON FURNACE OPERATOR HELPER Nhan Olivia CRNA 12/22/2024 3:08 PM Epidural Block Patient location: L&D Reason for block: labor analgesia Staff: Supervising provider: Roger Rivas MD Placed by: WING MAILER MACHINE OPERATOR: Nhan Olivia CRNA Procedure prep: Preprocedure checklist: patient identified, procedure contraindications assessed, procedure consent obtained, IV checked, risks, benefits and alternatives discussed, monitors and equipment checked and timeout performed Patient Position: sitting Procedure performed while patient: awake Monitoring: oximetry and blood pressure Prep solution: chlorhexadine/alcohol PPE: provider hat/mask, sterile gloves and sterile drape Skin infiltrated with lidocaine 1%: yes Epidural: Approach: midline Imaging guidance used: no Location: L3-4 Number of attempts:1 Epidural needle: Injection technique: MIGUELANGEL saline Needle type: Tuohy Needle gauge: 17 G Needle length: 9 cm Loss of resistance: 8 cm Catheter: Catheter type: multi-orifice. Catheter at skin depth: 13 cm Negative aspiration of blood: no Negative aspiration of CSF: no Test dose: negative Assessment: Sensory level - left: full eval pending Sensory level - right: full eval pending Events: patient tolerated procedure well with no complications us Roger Rivas MD ANESTHESIA ORDERABLES Fi nal Result * (ABNORMAL) Protein / creatinine ratio, urine, random (12/22/2024 10:04 AM CARBON FURNACE OPERATOR HELPER) Protein, ur, quant 32.9 mg/dL Comment: Interpretive Data No reference range established. Current interpretive data was last revised 2019. Creatinine Ur 180.3 mg/[facility] Comment: Interpretive Data No reference range established. Current interpretive data was last revised 2019. Protein/creatinin e ratio 182.5(H) 0.0 - 180.0 mg/g [facility] Urine 12/22/2024 10:0 4 AM CARBON FURNACE OPERATOR HELPER 12/22/2024 10:16 AM CARBON FURNACE OPERATOR HELPER us Alvino ROB LAB URINE ORDERABLES Final Result [facility] [place] [address] * eGFR (12/22/2024 9:19 AM CARBON FURNACE OPERATOR HELPER) eGFR >90 >=60 mL/min/1. 73 m2 Comment: Interpretive Data Reference Interval Normal >/= 90 mL/min/1.73m2 Mildly decreased* 60 - 89 mL/min/1.73m2 Mildly to moderately decreased 45 - 59 mL/min/1.73m2 Moderately to severely decreased 30 - 44 mL/min/1.73m2 Severely decreased 15 - 29 mL/min/1.73m2 Kidney Failure < 15 mL/min/1.73m2 *Relative to young adult level Estimated glomerular filtration rate is determined by the 2020 CKD-EPI equation recommended by the National Kidney Foundation (A Unifying Approach to GFR Estimation: Recommendations of the NKF-ASK Task Force on Reassessing the Inclusion of Race in Diagnosing Kidney Disease, JASN 2020). The CKD-EPI equation should not be used for patients with unstable renal function and has not been validated in children and those over 70. Current interpretive data was last reviewed 2021. Blood 12/22/2024 9:19 AM CARBON FURNACE OPERATOR HELPER 12/22/2024 9:31 AM CARBON FURNACE OPERATOR HELPER us Alvino ROB LAB BLOOD ORDERABLES Final Result Performing Organization Address City/[facility]/ZIP Co de Phone Number [facility] [place] [address] * RPR Blood (12/22/2024 9:19 AM CARBON FURNACE OPERATOR HELPER) RPR Nonreactive Nonreactive Blood 12/22/2024 9:19 AM CARBON FURNACE OPERATOR HELPER 12/22/2024 9:31 AM CARBON FURNACE OPERATOR HELPER Alvino ROB LAB MICROBIOLOGY - GENERAL ORDERABLES Final Result [facility] [place] [address] * (ABNORMAL) CBC without differential (12/22/2024 9:19 AM CARBON FURNACE OPERATOR HELPER) WBC 10.3(H) 3.8 - 9.9 K/cumm Hgb 10.8(L) 11.9 - 15.5 g/dL [facility] Hct 33.8(L) 35.6 - 45.5 % [facility] Plt 402(H) 150 - 400 K/cumm [facility] MPV 10.3 9.1 - 12.3 fL [facility] RBC 4.55 3.90 - 5.20 M/cumm [facility] MCV 74.3(L) 81.3 - 96.4 fL [facility] MCH 23.7(L) 27.1 - 33.3 pg [facility] MCHC 32.0(L) 32.3 - 35.7 g/dL [facility] RDW CV 14.5 11.1 - 14.9 % [facility] RDW SD 38.5 35.7 - 48.1 fL [facility] NRBC abs 0.00 0.00 - 0.01 K/cumm [facility] Blood 12/22/2024 9:19 AM CARBON FURNACE OPERATOR HELPER 12/22/2024 9:31 AM CARBON FURNACE OPERATOR HELPER Alvino Angel CNM LAB BLOOD ORDERABLES Final Result [facility] [place] [address] * Type and screen (12/22/2024 9:19 AM CARBON FURNACE OPERATOR HELPER) ABO Rh O Positive Nitin, indirect Negative [facility] Blood 12/22/2024 9:19 AM CARBON FURNACE OPERATOR HELPER 12/22/2024 9:39 AM CARBON FURNACE OPERATOR HELPER Narrative [facility] - 12/22/2024 10:36 AM CARBON FURNACE OPERATOR HELPER Has the patient had Daratumumab or Isatuximab in the past 6 months?->Unknown Alvino ROBM LAB BLOOD BANK TEST ORDERAB LES Final Result Performing Organization Address City/[facility]/ZIP Co de Phone Number [facility] [place] [address] * Uric acid (12/22/2024 9:19 AM CARBON FURNACE OPERATOR HELPER) [facility] Uric acid 4.8 2.5 - 7.0 mg/dL Blood 12/22/2024 9:19 AM CARBON FURNACE OPERATOR HELPER 12/22/2024 9:31 AM CARBON FURNACE OPERATOR HELPER Alvino Angel [facility] LAB BLOOD ORDERABLES Final Result Performing Organization Address [facility] Co de Phone Number [facility] [place] [address] * (ABNORMAL) Comprehensive metabolic panel (12/22/2024 9:19 AM CARBON FURNACE OPERATOR HELPER) [facility] Sodium 141 135 - 145 mmol/L Potassium, pl 3.8 3.3 - 4.9 mmol/L [facility] Chloride 107 97 - 110 mmol/L [facility] CO2 24 22 - 32 mmol/L [facility] Anion gap 10 2 - 15 mmol/L [facility] BUN 6 6 - 25 mg/dL [facility] Creatinine 0.58(L) 0.60 - 1.10 mg/dL [facility] Glucose 89 70 - 199 mg/dL [facility] Comment: Interpretive Data Fasting glucose >/= 126 mg/dl is diagnostic for diabetes. Fasting is defined as no caloric intake for at least 8 hours. Fasting glucose between 100 mg/dl to 125 mg/dl is diagnostic of prediabetes. In a patient with classic symptoms of hyperglycemia or hyperglycemic crisis, a random glucose >/= 200 mg/dl is diagnostic for diabetes. In the absence of unequivocal hyperglycemia, results should be confirmed by repeat testing. The classification and Diagnosis of Diabetes Diabetes Care 2021; 46: S19-S40. Current interpretive data was last revised 2022. Calcium 9.0 8.5 - 10.3 mg/dL [facility] Bilirubin, total 0.2 0.1 - 1.2 mg/dL [facility] Protein, pl 6.8 6.5 - 8.5 g/dL [facility] Albumin 3.3(L) 3.5 - 5.0 g/dL [facility] Alk phos 196(H) 40 - 130 Units/L [facility] ALT 9 7 - 45 Units/L [facility] AST 14 10 - 45 Units/L [facility] Blood 12/22/2024 9:19 AM CARBON FURNACE OPERATOR HELPER 12/22/2024 9:31 AM CARBON FURNACE OPERATOR HELPER us Alvino Angel CN LAB BLOOD ORDERABLES Final Result Performing Organization Address [facility]/ZIP Co de Phone Number [facility] [place] [address] * US Ob Limited (12/22/2024 8:59 AM CARBON FURNACE OPERATOR HELPER) Anatomical Region Laterality Modality Abdomen N/A Ultrasound Narrative 12/22/2024 8:59 AM CARBON FURNACE OPERATOR HELPER Vertex I have reviewed the images and agree with above. Tanvir Beatty MD us Tanvir Beatty MD IMG OB US PROCEDURES Final Result * Urine culture Urine, clean voided (12/17/2024 9:54 PM CARBON FURNACE OPERATOR HELPER) Report Final Report: Less than 100,000 colonies/mL (clinically insignificant growth based on current clinical standards) Organism (CLINICALLY INSIGNIFICANT GROWTH [facility] Urine, clean voided 12/17/2024 9:54 PM CARBON FURNACE OPERATOR HELPER 12/17/2024 10:02 PM CARBON FURNACE OPERATOR HELPER Narrative [facility] - 12/19/2024 10:26 AM CARBON FURNACE OPERATOR HELPER Indications for Culture:-> patient Specimen received in a sterile container. Testing performed by [facility] ([phone]) us Aidan Osullivan TRUCK LOADER LAB MICROBIOLOGY - GENER AL ORDERABLES Final Result Performing Organization Address City/[facility]/ZIP Co de Phone Number [facility] [place] [address] * (ABNORMAL) POCT urinalysis (Clinitek) (12/17/2024 9:45 PM CARBON FURNACE OPERATOR HELPER) Pathologist [facility] Color, ur, POC Yellow Yellow Clarity, UA, POC Clear Clear [facility] Glucose, ur, POC Negative Negative [facility] Bilirubin, ur, POC Negative Negative [facility] Ketones, ur, POC Negative Negative [facility] Specific gravity, ur, POC 1.015 1.010 - 1.025 [facility] Blood, ur, POC Negative Negative [facility] pH, ur, POC 7.0 [facility] Comment: Interpretive Data Urine pH is affected by diet, medications, systemic acid-base disturbances, and renal tubular function. pH may affect urinary stone formation. For example, urine pH below 6.0 may help reduce the tendency for calcium phosphate stones and pH greater than 6.0 may reduce the tendency for uric acid stone formation. Source: [place] [facility]. Last Revised Date: 11-13-2017 Protein, ur, POC Negative Negative [facility] Urobilinogen, ur, POC 0.2 mg/dL mg/dL [facility] Nitrites, ur, POC Negative Negative [facility] Leukocyte esterase, ur, POC 1+(A) Negative [facility] Urine 12/17/2024 9:45 PM CARBON FURNACE OPERATOR HELPER 12/17/2024 9:45 PM CARBON FURNACE OPERATOR HELPER Antonio Funez MD LAB POCT ORDERABLES - DEV ICE Final Result [facility] [place] [address] * eGFR (12/12/2024 8:27 PM CARBON FURNACE OPERATOR HELPER) [facility] eGFR >90 >=60 mL/min/1. 73 m2 Comment: Interpretive Data Reference Interval Normal >/= 90 mL/min/1.73m2 Mildly decreased* 60 - 89 mL/min/1.73m2 Mildly to moderately decreased 45 - 59 mL/min/1.73m2 Moderately to severely decreased 30 - 44 mL/min/1.73m2 Severely decreased 15 - 29 mL/min/1.73m2 Kidney Failure < 15 mL/min/1.73m2 *Relative to young adult level Estimated glomerular filtration rate is determined by the 2020 CKD-EPI equation recommended by the National Kidney Foundation (A Unifying Approach to GFR Estimation: Recommendations of the NKF-ASK Task Force on Reassessing the Inclusion of Race in Diagnosing Kidney Disease, JASN 2020). The CKD-EPI equation should not be used for patients with unstable renal function and has not been validated in children and those over 70. Current interpretive data was last reviewed 2021. Blood 12/12/2024 8:27 PM CARBON FURNACE OPERATOR HELPER 12/12/2024 8:46 PM CARBON FURNACE OPERATOR HELPER Venecia You MD LAB BLOOD ORDERABLES F inal Result Performing Organization Address [facility] Co de Phone Number [facility] Department [place] [address] * Protein / creatinine ratio, urine, random (12/12/2024 8:27 PM CARBON FURNACE OPERATOR HELPER) Protein, ur, quant <5.0 mg/dL Comment: Interpretive Data No reference range established. Current interpretive data was last revised 2019. Creatinine Ur 36.0 mg/dL [facility] Comment: Interpretive Data No reference range established. Current interpretive data was last revised 2019. Protein/creatinin e ratio <138.9 0.0 - 180.0 mg/g CR [facility] Urine 12/12/2024 8:27 PM CARBON FURNACE OPERATOR HELPER 12/12/2024 8:46 PM CARBON FURNACE OPERATOR HELPER Venecia You MD LAB URINE ORDERABLES F inal Result Performing Organization Address [facility]/ZIP Co de Phone Number [facility] [place] [address] * (ABNORMAL) CBC without differential (12/12/2024 8:27 PM CARBON FURNACE OPERATOR HELPER) [facility] WBC 10.4(H) 3.8 - 9.9 K/cumm Hgb 10.8(L) 11.9 - 15.5 g/dL [facility] Hct 33.5(L) 35.6 - 45.5 % [facility] Plt 376 150 - 400 K/cumm [facility] MPV 10.1 9.1 - 12.3 fL [facility] RBC 4.55 3.90 - 5.20 M/cumm [facility] MCV 73.6(L) 81.3 - 96.4 fL [facility] MCH 23.7(L) 27.1 - 33.3 pg [facility] MCHC 32.2(L) 32.3 - 35.7 g/dL [facility] RDW CV 14.2 11.1 - 14.9 % [facility] RDW SD 37.8 35.7 - 48.1 fL [facility] NRBC abs 0.00 0.00 - 0.01 K/cumm [facility] Blood 12/12/2024 8:27 PM CARBON FURNACE OPERATOR HELPER 12/12/2024 8:48 PM CARBON FURNACE OPERATOR HELPER Venecia You MD LAB BLOOD ORDERABLES F inal Result [facility] [place] [address] * (ABNORMAL) Comprehensive metabolic panel (12/12/2024 8:27 PM CARBON FURNACE OPERATOR HELPER) [facility] Sodium 144 135 - 145 mmol/L Potassium, pl 3.7 3.3 - 4.9 mmol/L [facility] Chloride 109 97 - 110 mmol/L [facility] CO2 25 22 - 32 mmol/L [facility] Anion gap 10 2 - 15 mmol/L [facility] BUN 4(L) 6 - 25 mg/dL [facility] Creatinine 0.63 0.60 - 1.10 mg/dL [facility] Glucose 85 70 - 199 mg/dL [facility] Comment: Interpretive Data Fasting glucose >/= 126 mg/dl is diagnostic for diabetes. Fasting is defined as no caloric intake for at least 8 hours. Fasting glucose between 100 mg/dl to 125 mg/dl is diagnostic of prediabetes. In a patient with classic symptoms of hyperglycemia or hyperglycemic crisis, a random glucose >/= 200 mg/dl is diagnostic for diabetes. In the absence of unequivocal hyperglycemia, results should be confirmed by repeat testing. The classification and Diagnosis of Diabetes Diabetes Care 2021; 46: S19-S40. Current interpretive data was last revised 2022. Calcium 8.9 8.5 - 10.3 mg/dL [facility] Bilirubin, total 0.2 0.1 - 1.2 mg/dL [facility] Protein, pl 6.5 6.5 - 8.5 g/dL [facility] Albumin 3.2(L) 3.5 - 5.0 g/dL [facility] Alk phos 175(H) 40 - 130 Units/L [facility] ALT 7 7 - 45 Units/L [facility] AST 11 10 - 45 Units/L [facility] Blood 12/12/2024 8:27 PM CARBON FURNACE OPERATOR HELPER 12/12/2024 8:46 PM CARBON FURNACE OPERATOR HELPER Venecia You MD LAB BLOOD ORDERABLES F inal Result [facility] [place] [address] * N. gonorrhoeae/C. trachomatis Amplification Vaginal (12/09/2024 2:28 PM CARBON FURNACE OPERATOR HELPER) C. trachomatis Not Detected [facility] N. gonorrhoeae Not Detected [facility] Comment: Interpretive Data This assay detects Chlamydia trachomatis and Neisseria gonorrhoeae by nucleic acid amplification testing (NAAT). This assay has been cleared by the [place] Food and Drug administration. The performance characteristics of this test have been verified by the [facility]. The performance characteristics of this test have not been evaluated in individuals less than 14 years of age. Current Interpretive Data was last revised on 2023. Vaginal (None) 12/09/2024 2: 28 PM CARBON FURNACE OPERATOR HELPER 12/09/2024 2:34 PM CARBON FURNACE OPERATOR HELPER Noreen Rucker NP LAB MICROBIOLOGY - GENERAL ORDERABLES Final Result Performing Organization Address [facility] de Phone Number [facility] [place] [address] [facility] * Trichomonas vaginalis PCR Vaginal (12/09/2024 2:28 PM CARBON FURNACE OPERATOR HELPER) Pathologist [facility] Trichomonas DNA Not Detected [facility] Comment: Interpretive Data This assay detects Trichomonas vaginalis by nucleic acid amplification testing (NAAT). This assay has been cleared by the [place] Food and Drug administration. The performance characteristics of this test have been verified by the [facility]. The performance of this test has not been evaluated in individuals less than 18 years of age. Current Interpretive Data was last revised on 2023. Vaginal 12/09/2024 2:28 PM CARBON FURNACE OPERATOR HELPER 12/09/2024 2:34 PM CARBON FURNACE OPERATOR HELPER Noreen Rucker NP LAB MICROBIOLOGY - GENERAL ORDERABLES Final Result Performing Organization Address [facility] de Phone Number [facility] [place] [address] [facility] * Type and screen (12/09/2024 11:38 AM CARBON FURNACE OPERATOR HELPER) Pathologist [facility] Nitin, indirect Negative ABO Rh O Positive [facility] Blood 12/09/2024 11:3 8 AM CARBON FURNACE OPERATOR HELPER 12/09/2024 12:42 PM CARBON FURNACE OPERATOR HELPER Narrative [facility] - 12/09/2024 1:47 PM CARBON FURNACE OPERATOR HELPER Has the patient had Daratumumab or Isatuximab in the past 6 months?->Unknown Noreen Rucker NP LAB BLOOD BANK TEST ORDERAB LES Final Result Performing Organization Address [facility] Co de Phone Number [facility] [place] [address] * eGFR (12/09/2024 11:35 AM CARBON FURNACE OPERATOR HELPER) eGFR >90 >=60 mL/min/1. 73 m2 Comment: Interpretive Data Reference Interval Normal >/= 90 mL/min/1.73m2 Mildly decreased* 60 - 89 mL/min/1.73m2 Mildly to moderately decreased 45 - 59 mL/min/1.73m2 Moderately to severely decreased 30 - 44 mL/min/1.73m2 Severely decreased 15 - 29 mL/min/1.73m2 Kidney Failure < 15 mL/min/1.73m2 *Relative to young adult level Estimated glomerular filtration rate is determined by the 2020 CKD-EPI equation recommended by the National Kidney Foundation (A Unifying Approach to GFR Estimation: Recommendations of the NKF-ASK Task Force on Reassessing the Inclusion of Race in Diagnosing Kidney Disease, JASN 2020). The CKD-EPI equation should not be used for patients with unstable renal function and has not been validated in children and those over 70. Current interpretive data was last reviewed 2021. Blood 12/09/2024 11:3 5 AM CARBON FURNACE OPERATOR HELPER 12/09/2024 12:19 PM CARBON FURNACE OPERATOR HELPER Noreen Rucker NP LAB BLOOD ORDERABLES Final Result [facility] [place] [address] * HIV 1/2 Antibody plus p24 Antigen Blood (12/09/2024 11:35 AM CARBON FURNACE OPERATOR HELPER) HIV 1/2 ab + p24 ag Nonreactive Nonreactive Comment:Nonreactive for HIV- 1 antigen and HIV-1/HIV-2 antibodies. No laboratory evidence of HIV infection. If acute HIV infection is suspected, consider testing for HIV-1 RNA. Current interpretive data was last revised on 22. Blood 12/09/2024 11:3 5 AM CARBON FURNACE OPERATOR HELPER 12/09/2024 12:19 PM CARBON FURNACE OPERATOR HELPER Noreen Ellienathan Rucker TRUCK LOADER LAB MICROBIOLOGY - GENERAL ORDERABLES Final Result [facility] [place] [address] * RPR Blood (12/09/2024 11:35 AM CARBON FURNACE OPERATOR HELPER) [facility] RPR Nonreactive Nonreactive Blood 12/09/2024 11:3 5 AM CARBON FURNACE OPERATOR HELPER 12/09/2024 12:20 PM CARBON FURNACE OPERATOR HELPER Noreen Rucker TRUCK LOADER LAB MICROBIOLOGY - GENERAL ORDERABLES Final Result Performing Organization Address [facility] de Phone Number [facility] [place] [address] * (ABNORMAL) CBC without differential (12/09/2024 11:35 AM CARBON FURNACE OPERATOR HELPER) [facility] WBC 10.8(H) 3.8 - 9.9 K/cumm Hgb 11.2(L) 11.9 - 15.5 g/dL [facility] Hct 36.4 35.6 - 45.5 % [facility] Plt 394 150 - 400 K/cumm [facility] MPV 10.2 9.1 - 12.3 fL [facility] RBC 4.66 3.90 - 5.20 M/cumm [facility] MCV 78.1(L) 81.3 - 96.4 fL [facility] MCH 24.0(L) 27.1 - 33.3 pg [facility] MCHC 30.8(L) 32.3 - 35.7 g/dL [facility] RDW CV 14.4 11.1 - 14.9 % [facility] RDW SD 40.3 35.7 - 48.1 fL [facility] NRBC abs 0.00 0.00 - 0.01 K/cumm [facility] Blood 12/09/2024 11:3 5 AM CARBON FURNACE OPERATOR HELPER 12/09/2024 12:20 PM CARBON FURNACE OPERATOR HELPER Noreen Rucker TRUCK LOADER LAB BLOOD ORDERABLES Final Result [facility] [place] [address] * (ABNORMAL) Comprehensive metabolic panel (12/09/2024 11:35 AM CARBON FURNACE OPERATOR HELPER) Sodium 139 135 - 145 mmol/L Potassium, pl 3.8 3.3 - 4.9 mmol/L [facility] Chloride 107 97 - 110 mmol/L [facility] CO2 23 22 - 32 mmol/L [facility] Anion gap 9 2 - 15 mmol/L [facility] BUN 4(L) 6 - 25 mg/dL [facility] Creatinine 0.54(L) 0.60 - 1.10 mg/dL [facility] Glucose 89 70 - 199 mg/dL [facility] Comment: Interpretive Data Fasting glucose >/= 126 mg/dl is diagnostic for diabetes. Fasting is defined as no caloric intake for at least 8 hours. Fasting glucose between 100 mg/dl to 125 mg/dl is diagnostic of prediabetes. In a patient with classic symptoms of hyperglycemia or hyperglycemic crisis, a random glucose >/= 200 mg/dl is diagnostic for diabetes. In the absence of unequivocal hyperglycemia, results should be confirmed by repeat testing. The classification and Diagnosis of Diabetes Diabetes Care 2021; 46: S19-S40. Current interpretive data was last revised 2022. Calcium 9.0 8.5 - 10.3 mg/dL [facility] Bilirubin, total 0.2 0.1 - 1.2 mg/dL [facility] Protein, pl 6.8 6.5 - 8.5 g/dL [facility] Albumin 3.2(L) 3.5 - 5.0 g/dL [facility] Alk phos 179(H) 40 - 130 Units/L [facility] ALT 9 7 - 45 Units/L [facility] AST 16 10 - 45 Units/L [facility] Blood 12/09/2024 11:3 5 AM CARBON FURNACE OPERATOR HELPER 12/09/2024 12:19 PM CARBON FURNACE OPERATOR HELPER us Noreen Rucker NP LAB BLOOD ORDERABLES Final Result Performing Organization Address [facility]/ZIP Co de Phone Number [facility] [place] [address] * (ABNORMAL) Group B streptococcal culture Vaginal/Rectal (12/09/2024 11:09 AM CARBON FURNACE OPERATOR HELPER) Report Amended Report - Complete: Streptococcus agalactiae (Group B Streptococci) (.) Organism STREPTOCOCCUS AGALACTIAE (GROUP B STREPTOCOCCI) [facility] Vaginal/Rectal 12/09/2024 11 :09 AM CARBON FURNACE OPERATOR HELPER 12/09/2024 2:29 PM CARBON FURNACE OPERATOR HELPER Narrative [facility] - 12/19/2024 10:57 AM CARBON FURNACE OPERATOR HELPER Testing performed by [facility] ([phone]). Organism Antibiotic Method Susceptibility Streptococcus agalactiae (Gr oup B Streptococci) Penicillin (GWEN) (GWEN) INTERPRETATION Susceptible Streptococcus agalactiae (Gr oup B Streptococci) Ceftriaxone (GWEN) (GWEN) INTERPRETATION Susceptible Streptococcus agalactiae (Gr oup B Streptococci) Clindamycin (GWEN) INTERPRETATION Susceptible Streptococcus agalactiae (Gr oup B Streptococci) Linezolid (GWEN) INTERPRETATION Susceptible Streptococcus agalactiae (Gr oup B Streptococci) Vancomycin (GWEN) INTERPRETATION Susceptible Noreen Rucker NP LAB MICROBIOLOGY - GENERAL ORDERABLES Edited Result - Final Performing Organization Address [facility] Co de Phone Number [facility] [place] [address] * US Ob Follow Up (12/09/2024 10:28 AM CARBON FURNACE OPERATOR HELPER) Fetus# Fetus1 VIEWPOINT Estimated Weight 3,075 g&grams VIEWPOINT Placenta Details anterior, Previa-no, no placental masses VIEWPOINT Presentation Transverse Lie VIEWPOINT Anatomical Region Laterality Modality Abdomen N/A Ultrasound 12/09/2024 10:3 5 AM CARBON FURNACE OPERATOR HELPER Impressions 12/09/2024 11:06 AM CARBON FURNACE OPERATOR HELPER Rob[place]o IUP at 36w 2d who presents for growth assessment. 1. Transverse lie with head to maternal left. 2. The interval growth has been appropriate. The EFW plots at the 70%. 3. The amniotic fluid volume is normal. Narrative Procedure Note Bruna Pacheco MD - 12/09/2024 IMPRESSION: Robledo IUP at 36w 2d who presents for growth assessment. 1. Transverse lie with head to maternal left. 2. The interval growth has been appropriate. The EFW plots at the70%. 3. The amniotic fluid volume is normal. us Noreen Rucker TRUCK LOADER IMG OB US PROCEDURES Final Result * Respiratory pathogen panel Nasopharyngeal (11/30/2024 4:10 PM CARBON FURNACE OPERATOR HELPER) Pathologist [facility] Influenza A RNA Not Detected Not Detected Influenza B RNA Not Detected Not Detected [facility] RSV RNA Not Detected Not Detected [facility] COVID-19 RNA Not Detected Not Detected [facility] Coronavirus 229E RNA Not Detected Not Detected [facility] Coronavirus HKU1 RNA Not Detected Not Detected [facility] Coronavirus NL63 RNA Not Detected Not Detected [facility] Coronavirus OC43 RNA Not Detected Not Detected [facility] Adenovirus DNA Not Detected Not Detected [facility] Metapneumovirus RNA Not Detected Not Detected [facility] Rhinovirus/Enterov irus RNA Not Detected Not Detected [facility] Parainfluenza 1 RNA Not Detected Not Detected [facility] Parainfluenza 2 RNA Not Detected Not Detected [facility] Parainfluenza 3 RNA Not Detected Not Detected [facility] Parainfluenza 4 RNA Not Detected Not Detected [facility] B. pertussis DNA Not Detected Not Detected [facility] B. parapertussis DNA Not Detected Not Detected [facility] C. pneumoniae DNA Not Detected Not Detected [facility] M. pneumoniae DNA Not Detected Not Detected [facility] Nasopharyngeal 11/30/2024 4: 10 PM CARBON FURNACE OPERATOR HELPER 11/30/2024 4:23 PM CARBON FURNACE OPERATOR HELPER Narrative [facility] - 11/30/2024 6:07 PM CARBON FURNACE OPERATOR HELPER Is the Patient experiencing symptoms consistent with COVID?->Yes Surveillance testing for transplant patient?->No Interpretive Data The [employer] FilmArray Respiratory Panel (RP2.1) assay is a multiplexed real-time PCR based nucleic acid test capable of simultaneous qualitative detection and identification of multiple respiratory viral and bacterial nucleic acids, including SARS Coronavirus 2 (the causative agent of COVID-19). The following bacteria, viruses and virus subtypes can be identified using the FilmArray RP2.1 assay: Bordetella pertussis, Bordetella parapertussis, Chlamydia pneumoniae, Mycoplasma pneumoniae, Adenovirus, SARS Coronavirus 2, seasonal coronaviruses (Coronavirus HKU1, Coronavirus NL63, Coronavirus 229E, and Coronavirus OC43), Influenza A, Influenza A subtype H1, Influenza A subtype H3, Influenza A subtype 2009 H1, Influenza B, Metapneumovirus, Parainfluenza 1, Parainfluenza 2, Parainfluenza 3, Parainfluenza 4, RSV, Rhinovirus/Enterovirus. Due to the genetic similarity between human Rhinovirus and Enterovirus, the FilmArray RP2.1 assay cannot reliably differentiate them. Coronavirus OC43 may cross-react with some isolates of Coronavirus HKU1. A dual positive result may be due to cross-reactivity or may indicate a co- infection. The detection and identification of specific viral and bacterial nucleic acids from individuals exhibiting signs and symptoms of a respiratory infection aids in the diagnosis of respiratory infection if used in conjunction with other clinical and epidemiological information. The results of this test should not be used as the sole basis for diagnosis, treatment, or other management decisions. Negative results in the setting of a respiratory illness may be due to infection with pathogens that are not detected by this test. Positive results do not rule out infection/co-infection with other organisms. The agent(s) detected by the FilmArray RP2.1 may not be the definite cause of disease. Additional testing (lab, imaging, etc.) may be necessary when evaluating a patient with possible respiratory tract infection. The FilmArray RP2.1 assay has FDA clearance for testing of TRUCK LOADER swabs. The performance of additional specimen types has been assessed by the performing laboratory. The performance characteristics of this assay have been determined by [facility] Molecular Infectious Disease Laboratory. Current interpretive data was last revised on 22. us Mary Anne Vega TRUCK LOADER LAB MICROBIOLOGY - [facility] AL ORDERABLES Final Result [facility] [place] [address] * ECG 12 lead (11/30/2024 3:59 PM CARBON FURNACE OPERATOR HELPER) Ventricular Rate EKG/Min 79 BPM [facility] Atrial Rate 79 BPM [facility] FL-Interval (MSEC) 158 ms [facility] QRS-Interval (MSEC) 92 ms [facility] QT-Interval (MSEC) 354 ms [facility] QTc 405 ms [facility] P Aulander 47 degrees [facility] R Aulander 46 degrees [facility] T Aulander 24 degrees [facility] Diagnosis Normal sinus rhythm Normal ECG When compared with ECG of 21-JUL-2023 11:06, No significant change was found Confirmed by MARGARITO GASCA M.D ([id number]) on 12/01/2024 8:43:46 AM [facility] 11/30/2024 3:59 PM CARBON FURNACE OPERATOR HELPER 12/01/2024 8:43 AM CARBON FURNACE OPERATOR HELPER us Mary Anne Vega NP ECG ORDERABLES Final Re sult Performing Organization Address [facility] Co de Phone Number [facility] * (ABNORMAL) POCT urinalysis (Clinitek) (11/30/2024 3:57 PM CARBON FURNACE OPERATOR HELPER) Color, ur, POC Yellow Yellow Clarity, UA, POC Clear Clear [facility] Glucose, ur, POC Negative Negative [facility] Bilirubin, ur, POC Negative Negative [facility] Ketones, ur, POC Negative Negative [facility] Specific gravity, ur, POC 1.015 1.010 - 1.025 [facility] Blood, ur, POC Negative Negative [facility] pH, ur, POC 6.0 [facility] Comment: Interpretive Data Urine pH is affected by diet, medications, systemic acid-base disturbances, and renal tubular function. pH may affect urinary stone formation. For example, urine pH below 6.0 may help reduce the tendency for calcium phosphate stones and pH greater than 6.0 may reduce the tendency for uric acid stone formation. Source: [facility]. Last Revised Date: 11-13-2017 Protein, ur, POC Negative Negative [facility] Urobilinogen, ur, POC 0.2 mg/dL mg/dL [facility] Nitrites, ur, POC Negative Negative [facility] Leukocyte esterase, ur, POC 2+(A) Negative [facility] Urine 11/30/2024 3:57 PM CARBON FURNACE OPERATOR HELPER 11/30/2024 3:57 PM CARBON FURNACE OPERATOR HELPER Adrianna Lord MD LAB POCT ORDERABLES - DE VICE Final Result Performing Organization Address City/[facility]/ZIP Co de Phone Number [facility] [place] [address] * N. gonorrhoeae/C. trachomatis Amplification Urine (11/23/2024 3:51 PM CARBON FURNACE OPERATOR HELPER) Pathologist [facility] C. trachomatis Not Detected Not Detected [facility] N. gonorrhoeae Not Detected Not Detected [facility] Comment: Interpretive Data This assay detects Chlamydia trachomatis and Neisseria gonorrhoeae by nucleic acid amplification testing (NAAT). This assay has been cleared by the [place] Food and Drug administration. The performance characteristics of this test have been verified by the [facility] Infectious Disease laboratory. The performance characteristics of this test have not been evaluated in individuals less than 14 years of age. Current Interpretive Data last revised 2023. Urine (None) 11/23/2024 3:51 PM CARBON FURNACE OPERATOR HELPER 11/23/2024 4:44 PM CARBON FURNACE OPERATOR HELPER Pam Judge NP LAB MICROBIOLOGY - GENERAL ORDERABLES Final Result Performing Organization Address City/[facility]/ZIP Co de Phone Number [facility] Department [place] [address] [facility] * Trichomonas vaginalis PCR Urine (11/23/2024 3:51 PM CARBON FURNACE OPERATOR HELPER) [facility] Trichomonas DNA Not Detected Not Detected [facility] Comment: Interpretive Data This assay detects Trichomonas vaginalis by nucleic acid amplification testing (NAAT). This assay has been cleared by the [place] Food and Drug administration. The performance characteristics of this test have been verified by the [facility] laboratory. Excess blood in specimens may be inhibitory and result in false negative results. The performance of this test has not been evaluated in women or individuals less than 18 years of age. Current Interpretive Data last revised 2023. Urine 11/23/2024 3:51 PM CARBON FURNACE OPERATOR HELPER 11/23/2024 4:44 PM CARBON FURNACE OPERATOR HELPER us Pam Judge NP LAB MICROBIOLOGY - GENERAL ORDERABLES Final Result [facility] [place] [address] [facility] * eGFR (11/23/2024 2:39 PM CARBON FURNACE OPERATOR HELPER) eGFR >90 >=60 mL/min/1. 73 m2 Comment: Interpretive Data Reference Interval Normal >/= 90 mL/min/1.73m2 Mildly decreased* 60 - 89 mL/min/1.73m2 Mildly to moderately decreased 45 - 59 mL/min/1.73m2 Moderately to severely decreased 30 - 44 mL/min/1.73m2 Severely decreased 15 - 29 mL/min/1.73m2 Kidney Failure < 15 mL/min/1.73m2 *Relative to young adult level Estimated glomerular filtration rate is determined by the 2020 CKD-EPI equation recommended by the National Kidney Foundation (A Unifying Approach to GFR Estimation: Recommendations of the NKF-ASK Task Force on Reassessing the Inclusion of Race in Diagnosing Kidney Disease, JASN 2020). The CKD-EPI equation should not be used for patients with unstable renal function and has not been validated in children and those over 70. Current interpretive data was last reviewed 2021. Blood 11/23/2024 2:39 PM CARBON FURNACE OPERATOR HELPER 11/23/2024 2:55 PM CARBON FURNACE OPERATOR HELPER us Pam Judge TRUCK LOADER LAB BLOOD ORDERABL ES Final Result [facility] [place] [address] * (ABNORMAL) Differential, auto (11/23/2024 2:39 PM CARBON FURNACE OPERATOR HELPER) Neutrophil abs 8.9(H) 1.5 - 6.5 K/cumm Imm gran abs 0.1 0.0 - 0.1 K/cumm [facility] Lymphocyte abs 2.1 0.8 - 3.3 K/cumm [facility] Monocyte abs 0.6 0.2 - 0.8 K/cumm [facility] Eosinophil abs 0.1 0.0 - 0.5 K/cumm [facility] Basophil abs 0.1 0.0 - 0.1 K/cumm [facility] Neutrophil pct 74.9 % [facility] Comment: Interpretive Data Percent cell count reference ranges are not reported, since discordance with absolute values may lead to misinterpretation of CBC data. Current Interpretive Data was last revised on 2018. Imm gran pct 0.5 % [facility] Comment: Interpretive Data Percent cell count reference ranges are not reported, since discordance with absolute values may lead to misinterpretation of CBC data. Current Interpretive Data was last revised on 2018. Lymphocyte pct 18.0 % [facility] Comment: Interpretive Data Percent cell count reference ranges are not reported, since discordance with absolute values may lead to misinterpretation of CBC data. Current Interpretive Data was last revised on 2018. Monocyte pct 5.4 % [facility] Comment: Interpretive Data Percent cell count reference ranges are not reported, since discordance with absolute values may lead to misinterpretation of CBC data. Current Interpretive Data was last revised on 2018. Eosinophil pct 0.8 % [facility] Comment: Interpretive Data Percent cell count reference ranges are not reported, since discordance with absolute values may lead to misinterpretation of CBC data. Current Interpretive Data was last revised on 2018. Basophil pct 0.4 % [facility] Comment: Interpretive Data Percent cell count reference ranges are not reported, since discordance with absolute values may lead to misinterpretation of CBC data. Current Interpretive Data was last revised on 2018. Blood 11/23/2024 2:39 PM CARBON FURNACE OPERATOR HELPER 11/23/2024 2:55 PM CARBON FURNACE OPERATOR HELPER Pam Judge NP LAB BLOOD ORDERABL ES Final Result Performing Organization Address [facility] Co de Phone Number [facility] [place] [address] * (ABNORMAL) CBC with auto differential (11/23/2024 2:39 PM CARBON FURNACE OPERATOR HELPER) WBC 11.9(H) 3.8 - 9.9 K/cumm Hgb 11.3(L) 11.9 - 15.5 g/dL [facility] Hct 35.0(L) 35.6 - 45.5 % [facility] Plt 380 150 - 400 K/cumm [facility] MPV 9.8 9.1 - 12.3 fL [facility] RBC 4.44 3.90 - 5.20 M/cumm [facility] MCV 78.8(L) 81.3 - 96.4 fL [facility] MCH 25.5(L) 27.1 - 33.3 pg [facility] MCHC 32.3 32.3 - 35.7 g/dL [facility] RDW CV 13.6 11.1 - 14.9 % [facility] RDW SD 38.8 35.7 - 48.1 fL [facility] NRBC abs 0.00 0.00 - 0.01 K/cumm [facility] Blood 11/23/2024 2:39 PM CARBON FURNACE OPERATOR HELPER 11/23/2024 2:55 PM CARBON FURNACE OPERATOR HELPER Pam Judge NP LAB BLOOD ORDERABL ES Final Result Performing Organization Address [facility]/ZIP Co de Phone Number [facility] [place] [address] * Protein / creatinine ratio, urine, random (11/23/2024 2:39 PM CARBON FURNACE OPERATOR HELPER) Pathologist [facility] Protein, ur, quant <5.0 mg/dL Comment: Interpretive Data No reference range established. Current interpretive data was last revised 2019. Creatinine Ur 26.0 mg/dL [facility] Comment: Interpretive Data No reference range established. Current interpretive data was last revised 2019. Protein/creatini ne ratio See Comment 0.0 - 180.0 mg/g CR [facility] Comment:Unable to Calculate Urine 11/23/2024 2:39 PM CARBON FURNACE OPERATOR HELPER 11/23/2024 3:02 PM CARBON FURNACE OPERATOR HELPER Pam Judge NP LAB URINE ORDERABL ES Final Result [facility] [place] [address] * (ABNORMAL) Comprehensive metabolic panel (11/23/2024 2:39 PM CARBON FURNACE OPERATOR HELPER) [facility] Sodium 138 135 - 145 mmol/L Potassium, pl 3.8 3.3 - 4.9 mmol/L [facility] Chloride 106 97 - 110 mmol/L [facility] CO2 23 22 - 32 mmol/L [facility] Anion gap 9 2 - 15 mmol/L [facility] BUN 4(L) 6 - 25 mg/dL [facility] Creatinine 0.47(L) 0.60 - 1.10 mg/dL [facility] Glucose 83 70 - 199 mg/dL [facility] Comment: Interpretive Data Fasting glucose >/= 126 mg/dl is diagnostic for diabetes. Fasting is defined as no caloric intake for at least 8 hours. Fasting glucose between 100 mg/dl to 125 mg/dl is diagnostic of prediabetes. In a patient with classic symptoms of hyperglycemia or hyperglycemic crisis, a random glucose >/= 200 mg/dl is diagnostic for diabetes. In the absence of unequivocal hyperglycemia, results should be confirmed by repeat testing. The classification and Diagnosis of Diabetes Diabetes Care 202; 46: S19-S40. Current interpretive data was last revised 2022. Calcium 8.6 8.5 - 10.3 mg/dL [facility] Bilirubin, total 0.2 0.1 - 1.2 mg/dL [facility] Protein, pl 6.7 6.5 - 8.5 g/dL [facility] Albumin 3.3(L) 3.5 - 5.0 g/dL [facility] Alk phos 148(H) 40 - 130 Units/L [facility] ALT 8 7 - 45 Units/L [facility] AST 16 10 - 45 Units/L [facility] Blood 11/23/2024 2:39 PM CARBON FURNACE OPERATOR HELPER 11/23/2024 2:55 PM CARBON FURNACE OPERATOR HELPER Pam Judge TRUCK LOADER LAB BLOOD ORDERABL ES Final Result Performing Organization Address City/[facility]/ZIP Co de Phone Number [facility] [place] [address] * Hepatitis C antibody Blood (05/21/2024 12:00 PM CDT) Hep C Ab Nonreactive Nonreactive Comment:Antibodies to HCV no t detected. Does NOT exclude the possibility of recent exposure to HCV. Current interpretive data was last revised on 22 Blood 05/21/2024 12:0 0 PM CDT 05/21/2024 12:14 PM CDT Melanie Almeida TRUCK LOADER LAB MICROB IOLOGY - GENERAL ORDERABLES Edited Result - Final [facility] [place] [address] * Pap Only (Cytology Component) (01/30/2024 11:27 AM CDT) Thin prep (Pap test) 01/30/2024 11:27 AM CDT 01/30/2024 2:16 PM CDT Narrative PATHOLOGY [facility] - 02/06/2024 1:57 PM CDT EPIC results best viewed via link to PDF [facility], [place] [address] Note to Patients: This report may contain a detailed description of human tissue sent by a health care provider to the laboratory for pathologic evaluation. The content of this report is essential for diagnosis and may provide important critical findings. This information may be unfamiliar to patients to review without a medical professional present. It is advised that the patient review this report in the presence of a health care provider who can answer questions and explain the details. CYTOPATHOLOGY REPORT FINAL Patient Name: ISABELLA WALDRON Gender: F : 2000 (Age: 23) Address: [address] [place], [place] [id number] Hospital #: [id number] Service: HUMAN SERVICES CASE MANAGER Location: Patient Type: [facility] SPECIMEN Taken: 01/30/2024 Received: 01/30/2024 Accessioned: 02/03/2024 Reported: 02/06/2024 Physician(s): ALEXANDRIA Hill FINAL INTERPRETATION SOURCE OF SPECIMEN Liquid based Thin Prep pap: STATEMENT OF ADEQUACY - Satisfactory for evaluation - Endocervical cells/transformation zone sample absent GENERAL CATEGORIZATION: - Negative for squamous intraepithelial lesion or malignancy INTERPRETATION: - Shift in ines suggestive of bacterial vaginosis cristofer/02/06/2024 13:57 PAULIE Araya(ASCP) Report Electronically Reviewed and Signed Out By PAULIE Araya(ASCP) 02/06/2024 13:57:27 Cervicovaginal Cytology (Pap Test) Disclaimer: The Pap test is a screening test used to detect cervical cancer and its precursors; it is not a diagnostic procedure. False negative and false positive results do occur. Pap test results should be interpreted in the context of pertinent clinical information and biopsy results as indicated. [facility] Clinical Laboratory Improvement Amendments (CLIA) mandate that cytologic and histologic results be correlated for laboratory billing and quality technician & improvement standards. FOR ALL HIGH-GRADE CASES we request submission of follow-up histological material and/or reports that have not been previously provided so that we may fulfill said required standards. Gross Description A. Liquid based Thin Prep pap: Cervical/vaginal - Screening ThinPrep Clinical Diagnosis and History Last Menstrual Period: unknown Menstrual History: The patient is a 23 year old woman with . Report Images and scanned documents, if included only viewable in PDF version The performance characteristics of some immunohistochemical stains, in-situ hybridization and fluorescence in-situ hybridization tests and immunophenotyping by flow cytometry cited in this report (if any) were determined by the Surgical Pathology Department at [facility] as part of an ongoing corporate quality manager program and in compliance with federally mandated regulations drawn from the Clinical Laboratory Improvement Act of 1988 (CLIA '88). Some of these tests rely on the use of analyte specific reagents and are subject to specific labeling requirements by the [place] Food and Drug Administration. Such diagnostic tests may only be performed in a facility that is certified by the Department of Health and Human Services as a high complexity laboratory under CLIA '88. The FDA has determined that such clearance or approval is not necessary. This test is used for clinical purposes. It should not be regarded as investigational or for research. Nevertheless, federal rules concerning the medical use of analyte specific reagents require that the following disclaimer be attached to the report: This test was developed and its performance characteristics determined by the Surgical Pathology Department of [facility]. It has not been cleared or approved by the U. S. Food and Drug Administration. Noreen Rucker NP LAB CYTOLOGY ORDERABLES [facility] al Result PATHOLOGY [facility] [address] Floor [place], [place] [phone] from Last 3 Months or Most Recently Relevant to Health Maintenance Insurance [facility] Advance Directives For more information, please contact: [phone] * Full Code (Latest Code Status on File) Date Activated Date Inactivated Comments 12/22/2024 10:28 PM 12/24/2024 4:31 PM * Full Code Date Activated Date Inactivated Comments 12/22/2024 9:16 AM 12/22/2024 10:28 PM Full CPR in case of cardiopulmonary arrest * Full Code Date Activated Date Inactivated Comments 11/29/2023 11:37 PM 12/01/2023 6:24 PM * Full Code Date Activated Date Inactivated Comments 11/29/2023 8:10 AM 11/29/2023 11:37 PM Full CPR in case of cardiopulmonary arrest Care Teams Health Care Facilities Inspector Relationship Specialty Start Date End Date Rhianna Chino MD [address] [address] [place] [id number] PCP - General Obstetrics and Gynecology 09/03/24
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
--- OUTSIDE RECORDS SUMMARY | 2025-02-16 17:22 | XMS_ITS | Clinical Summary ---
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 today, may repeat in 3 days if still symptomatic. Avoid [place] until all medication complete. Avoid use of bubble baths, perfumed soaps, lotions in vagina. Relevant Medications fluconazole (DIFLUCAN) 150 mg tablet Gravid and Encounter for supervision of normal , antepartum Overview PLAN: -Continue PNV daily -WAC precautions -Next visit in 4 weeks 1st Trimester: [x] Dating Criteria: L=1, DIANE 01/04/25 If < 8w6d (change due date if >5d difference). If 9w0d to 15w6d (change due date if > 7d difference) [x] Labs: T&S (Ab): O+ (neg) H/H: 13.5/40.3 Rubella: Equivocal VZV:Reactive HIV: NR RPR: NR Hep B: NR Hep C: NR [x] HgbA1c: 06/21 [x] NG/CT/Trich: NR/NR/NR [x] UCx: neg [x] Hgb electrophoresis: N/A [x] Pap: 2023 NILM [x] Panorama:06/21 [] Carrier Screen: Declined 06/21 [x] ASA at 12 weeks - rx sent 06/21 [] Feeding Preferences Survey: benefits of discussed with patient at RN IOB 2nd Trimester: [] Anatomy ultrasound: [] Placenta: [] H/H: Plt: Ferritin: RPR: [] 1hr GTT (24-28wks): [] PNBHS referral (if indicated): EPDS= [] Second/Third trimester education packet given - (Date) [] Flu Shot (Jul-Oct): [] Tdap (27-36wks): [] Rhogam (if Rh neg): [] RSV Vaccine 32-36 weeks [] Childbirth classes discussed [] education (colostrum, expected breast changes). 3rd Trimester: [] H/H: Plt: HIV: RPR: T&S: [] GBS: [] NG/CT: Trich: [] Final discussion-Discussed Baby Friendly-skin to skin, rooming in, support, formula safety. [] Breast Pump order form provided: (Date) Counseling: [] Discussed anticipated weight gain in [] Method of delivery: [] Bottle of CHG 4% and hand out provided @ 36wks (if planned) [] Timing of delivery: [] Method of Feeding: Discussed baby friendly, skin to skin, rooming in, support. Formula safety. [] COVID-19 vaccine: [] education: completed in all 3 trimesters [] Method of Contraception: Discussed pills, patch, ring, injection, implant, IUD. [] Inspector Experimental Assembly: [] Car seat discussed [] PP depression counseling [...] start agent: [] Epidural: [] Consents signed: Mental Health Moderate episode of recurrent major depressive disorder (HCC) Overview Has hx of depression, controlled with Zoloft [...] stable. Plans to meet with SW today. Laura Sharma NP Cosigned by Gene Portillo MD at 07/01/2024 1:49 PM CDT Associated attestation - Gene Portillo MD - 07/01/2024 1:49 PM CDT I have reviewed the patient's history and physical and agree with the assessment and plan per Laura Sharma NP. Gene Portillo MD Progress Notes - Initial Pre jonelle - 06/21/2024 - GA:11w6d 06/21/2024 - w6d - Noam Sharma NP Images from the original note were not included. OB INITIAL VISIT Isabella Waldron is a 23 y.o. with cHTN, rubella non-imm, hx of depression, obesity presents for her initial OB visit, at 11w6d by LMP and BSUS @9w3d in [facility]. is desired. Patient already taking PNV. Requesting to switch antidepressants. Currently taking sertraline 25mg daily, which she has taken since she was 14yo, however does not like the way it is making her feel. Reports feeling emotionally numb and still depressed . Not currently doing therapy/counseling, but trying to get in with a new therapist, has previously been seen at [facility] in [place], [place]. She denies any SI/HI, however does report thoughts of self harm. Has hx of cutting, however denies any recent thoughts. Recently found out of FOB cheating, and reports repeatedly punching herself in the forehead. Requests repeat STI screening today (had negative results 06/04). Denies sxs. Reproductive partner's name: Ray - States FOB was not supportive at aft first, but is starting to come around Vaginal Bleeding: No LOF: No Contractions/cramping: none Past Medical History: Diagnosis Date Anxiety Bacterial vaginosis Depression Elevated liver enzymes childhood Hypertension Obesity STI (sexually transmitted infection) Urinary tract infection Past Surgical History: Procedure Laterality Date TONSILECTOMY, ADENOIDECTOMY, BILATERAL MYRINGOTOMY AND TUBES Bilateral childhood TONSILLECTOMY/ADENOIDECTOMY Bilateral 2012 OB History Para Term AB Living 2 1 1 0 0 1 SAB IAB Ectopic Multiple Live Births 0 0 0 0 1 # Outcome Date GA Lbr Abdirahman/2nd Weight Sex Type Anes PTL Lv 2 Current 1 Term 11/29/23 39w0d 11:29 01:08 2.82 kg (6 lb 3.5 oz) F Vaginal EPI N ERIN Name: Khoa Dobbs Eileen Apgar1: 8 Apgar5: 9 ASSAYER HELPER History: Pap History: 2023 NILM STI History: Genetic History: [-] Mother's Age > 34 years [-] Sickle Cell Disease or Trait [-] Thalasemia (Spanish, Turkmen, Medit or ; MCV <80) [-] Jude Sachs Disease (Church, Cajun, Faroese [place]) [-] Down's Syndrome [-] Neural Tube Defects (Meningomyelocele, Spina Bifida or Anencephaly) [-] Other Developmental Delay [-] Cystic Fibrosis [-] Magnet's Chorea [-] Muscular Dystrophy [-] Hemophilia [-] Other Heritable condition HOME MEDICATIONS : aspirin 81 mg enteric coated tablet docusate sodium (COLACE) 100 mg capsule ferrous sulfate 325 mg (65 mg of elemental iron) tablet labetaloL (NORMODYNE,TRANDATE) 200 mg tablet ondansetron ODT (ZOFRAN-ODT) 4 mg disintegrating tablet vitamin ferrous fumarate-folic () 28 mg iron- 800 mcg tablet Allergies as of 06/21/2024 - Reviewed 06/21/2024 Allergen Reaction Noted Amoxicillin Hives and Urticaria 05/04/2020 Amoxicillin-pot clavulanate Hives and Urticaria 05/04/2020 Cephalexin Itching 05/08/2024 Family History Problem Relation Age of Onset Hypertension Maternal Grandmother No Known Problems Father No Known Problems Mother Breast cancer Mother's Sister Social History Tobacco Use Smoking status: Every Day Types: Vaping Smokeless tobacco: Never Substance and Sexual Activity Drug use: Not Currently Types: Marijuana Comment: quit with Sexual activity: Yes Partners: Male Alcohol Use: Not At Risk (05/21/2024) AUDIT-C Frequency of Alcohol Consumption: Never Average Number of Drinks: Patient does not drink Frequency of Binge Drinking: Never Physical Exam: BP 96/54 Pulse 92 Ht 167.6 cm (5' 6 ) Wt 234 lb 12.8 oz (106.5 kg) LMP 03/30/2024 SpO2 98% BMI 37.90 kg/m Lab Results Component Value Date GLUCOSEUR Negative 06/04/2024 KETONESU Negative 06/04/2024 PROTURPOC Negative 06/04/2024 POCURNITRITE Negative 06/04/2024 LEUKESTUR Trace (A) 06/04/2024 General: NAD, mood appropriate Pulmonary: Clear to ausculation bilaterally Cardiovascular: Regular rate and rhythm Abdomen: soft, non-tender,gravid Extremities: Warm and well perfused GENITAL EXAM: Deferred Labs: Lab Results Component Value Date ABORH O Positive 05/08/2024 IDCOOMB Negative 05/08/2024 [id number] Nonreactive 05/21/2024 LABRPR Nonreactive 05/21/2024 RUBELIGG Equivocal (A) 05/21/2024 HEPBSAG Nonreactive 05/21/2024 Transabdominal ultrasound early Indication: Confirm viability and dating Uterus: normal Single IUP @ 11w6d, dating previously established, L=1 in [facility] 06/04 FHM= 161bpm Impression: Viable IUP with normal appearing adnexa Assessment/Plan: 23 y.o. at 11w6d. Problem List Cardiac and Vasculature Chronic hypertension Overview See counseling from IOB visit 06/21/24 CURRENT REGIMEN: ASA 81 mg daily 12-36 weeks. Rx sent at IOB Labetalol 200mg BID If Systolic BP > 140 or Diastolic >90 -start Nifedipine 30 mg XL daily. (06/24/23) Continue ASA 81 mg daily. If unable to tolerate secondary to side effects (headaches) Encourage tylenol with Nifedipine OR -Switch to Labetalol 200 mg BID. Consider home BP cuff/log [] Baseline Plt: 367 K+: 3.7 Cr: 0.60 ALT/AST: 08/15 [] Urine Protein/Creatinine Ratio: 0.077 [] Baseline ECG: Sinus bradycardia with marked sinus arrhythmia. Otherwise normal ECG (no further workup required unless symptomatic -per discussion with Maternal Cardiology) [] Ophthalmology referral: [] Educated on ASA 81 mg daily for Pre-Eclampsia prevention, Pre-Eclampsia leading to Eclampsia, Placental abruption, maternal and or morbidity/mortality. [] Serial Growth ultrasounds every 4 weeks-start at 28 weeks. [] Delivery at 39 weeks. Scheduled for 11/29/23 @8am [] Once Weekly NSTs starting at 32 weeks if on AntiHTN Agent- N/A (IF Ultrasound scheduled can do BPP that week instead). Relevant Orders Comprehensive metabolic panel (Completed) eGFR (Completed) Endocrine and Metabolic Obesity Overview Counselin/19 BMI > 30 Obesity in (BMI >30) is associated with increased risks. Maternal risks include preeclampsia, gestational diabetes and section. risks include anomalies, growth abnormalities (FGR and macrosomia) and stillbirth. Recommended weight gain is a total of 11-20 lbs, with 1-4 lbs in the 1st trimester and 0.5 lb/week in the 2nd and 3rd trimesters. Plan: [x] Initiate aspirin 81 mg at 12 weeks for preeclampsia risk reduction - Rx sent 06/21 [x] Early gestational diabetes screening with Hgb A1C [] Specialized anatomic survey at 20 weeks (Order [id number]) [] Serial growth ultrasounds every 4 weeks at 28 weeks [] 3rd trimester anesthesia consultation if BMI >/=50 [] Weekly testing BMI at IOB: 37.9 BMI 35.0-39.9 beginning at 37w0d BMI >40.0 beginning at 34w0d Gravid and Encounter for supervision of normal , antepartum - Primary Overview PLAN: -Continue PNV daily -WAC precautions -Next visit in 4 weeks 1st Trimester: [x] Dating Criteria: L=1, DIANE 01/04/25 If < 8w6d (change due date if >5d difference). If 9w0d to 15w6d (change due date if > 7d difference) [x] Labs: T&S (Ab): O+ (neg) H/H: 13.5/40.3 Rubella: Equivocal VZV:Reactive HIV: NR RPR: NR Hep B: NR Hep C: NR [x] HgbA1c: 06/21 [x] NG/CT/Trich: NR/NR/NR [x] UCx: 06/21 [x] Hgb electrophoresis: N/A [x] Pap: 2023 NILM [x] Panorama:06/21 [] Carrier Screen: Declined 06/21 [x] ASA at 12 weeks - rx sent 06/21 [] Feeding Preferences Survey: benefits of discussed with patient at RN IOB 2nd Trimester: [] Anatomy ultrasound: [] Placenta: [] H/H: Plt: Ferritin: RPR: [] 1hr GTT (24-28wks): [] PNBHS referral (if indicated): EPDS= [] Second/Third trimester education packet given - (Date) [] Flu Shot (Jul-Oct): [] Tdap (27-36wks): [] Rhogam (if Rh neg): [] RSV Vaccine 32-36 weeks [] Childbirth classes discussed [] education (colostrum, expected breast changes). 3rd Trimester: [] H/H: Plt: HIV: RPR: T&S: [] GBS: [] NG/CT: Trich: [] Final discussion-Discussed Baby Friendly-skin to skin, rooming in, support, formula safety. [] Breast Pump order form provided: (Date) Counseling: [] Discussed anticipated weight gain in [] Method of delivery: [] Bottle of CHG 4% and hand out provided @ 36wks (if planned) [] Timing of delivery: [] Method of Feeding: Discussed baby friendly, skin to skin, rooming in, support. Formula safety. [] COVID-19 vaccine: [] education: completed in all 3 trimesters [] Method of Contraception: Discussed pills, patch, ring, injection, implant, IUD. [] Inspector Experimental Assembly: [] Car seat discussed [] PP depression counseling [...] start agent: [] Epidural: [] Consents signed: Relevant Orders Hemoglobin A1c (Completed) Urine culture Urine, clean voided N. gonorrhoeae/C. trachomatis Amplification Urine Trichomonas vaginalis PCR Urine Rubella non-immune status, antepartum Overview -For PP [facility] Mental Health Moderate episode of recurrent major depressive disorder (HCC) Overview Has hx of depression, controlled with Zoloft 25mg daily 06/21: Pt asking about alternate antidepressant. Shared decision making to await medication adjustments and refer to [facility] with request for med adjustment. Denies SI/HI. Plan to closely monitor with EPDS q visit. Pt unable to stay to meet with clinic SW, but will refer for resources. Laura Sharma NP Progress Notes - Hospital En counter - 06/04/2024 - GA:9w3d 06/05/2024 - 9w4d - Taniya Curry RN Pt arrived to [facility] at 9w3d complaining of passing bright red blood x one hour EXTERIOR INTERIOR SPECIALIST VSS and Reactive NST GENERAL ENGINEER assessment. Urine dip WNL Pt signed out with Dr. Sánchez per Jonna Vega GENERAL ENGINEER Discharge instructions given/verbalized understanding Discharged in stable condition. 06/05/2024 - w - Mary Anne Vega NP Attached media from the original note were not included. Progress Notes - Clinical [place] pport - 05/21/2024 - GA:7w3d 05/21/2024 - 3d - Kwame Marcus RN IOB RN Visit Date of Visit: 05/21/2024 10:46 AM Author: Kwame Marcus RN Subjective: Isabella Waldron is a 23 y.o. at 7w3d by LMP of 03/30/2024. She is being seen today for her first obstetric visit with RN. This is not a planned . Patient is taking a vitamin. Patient is experiencing morning sickness. Her obstetrical history is significant for short interval , CHTN, anxiety/depression and BV. Relationship with FOB: significant other, living together. Patient does intend to breast feed. history fully reviewed. Obstetric History: OB History Para Term AB Living 2 1 1 0 0 1 SAB IAB Ectopic Multiple Live Births 0 0 0 0 1 # Outcome Date GA Lbr Abdirahman/2nd Weight Sex Type Anes PTL Lv 2 Current 1 Term 11/29/23 39w0d 11:29 / 01:08 2.82 kg (6 lb 3.5 oz) F Vaginal EPI N ERIN Medical History: Past Medical History: Diagnosis Date Anxiety Bacterial vaginosis Depression Elevated liver enzymes childhood Hypertension Obesity STI (sexually transmitted infection) Urinary tract infection Current Outpatient Medications Medication ferrous sulfate 325 mg (65 mg of elemental iron) tablet labetaloL (NORMODYNE,TRANDATE) 200 mg tablet ondansetron ODT (ZOFRAN-ODT) 4 mg disintegrating tablet vitamin ferrous fumarate-folic () 28 mg iron- 800 mcg tablet acetaminophen 500 mg capsule benzocaine-menthoL (DERMOPLAST) 20-0.5 % aerosol imiquimod (ALDARA) 5 % cream polyethylene glycol (MIRALAX) 17 gram/dose bulk powder sertraline (ZOLOFT) 50 mg tablet witch Shayy (TUCKS) 50 % pads, medicated No current facility-administered medications for this visit. Allergies Allergen Reactions Amoxicillin Hives and Urticaria Amoxicillin-Pot Clavulanate Hives and Urticaria Cephalexin Itching Surgical History: Past Surgical History: Procedure Laterality Date TONSILECTOMY, ADENOIDECTOMY, BILATERAL MYRINGOTOMY AND TUBES Bilateral childhood TONSILLECTOMY/ADENOIDECTOMY Bilateral 2013 Social History: Social History Tobacco Use Smoking status: Every Day Types: Vaping Smokeless tobacco: Never Substance and Sexual Activity Drug use: Not Currently Types: Marijuana Comment: quit with Sexual activity: Yes Partners: Male Alcohol Use: Not At Risk (05/21/2024) AUDIT-C Frequency of Alcohol Consumption: Never Average Number of Drinks: Patient does not drink Frequency of Binge Drinking: Never Objective: BP 124/62 (BP Location: Right arm, Patient Position: Sitting) Comment: manual Pulse 64 Ht 167.6 cm (5' 6 ) Wt 238 lb 6.4 oz (108.1 kg) LMP 03/30/2024 SpO2 100% BMI 38.48 kg/m Counseling and next steps: Initial labs ordered per standing order. Initial OB education folder reviewed with patient. Reviewed what to expect from visits and schedule, SAB precautions, diet and exercise with expected weight gain, medications, and smoking/EtOH avoidance during . [facility] should patient have any -related issues including: nausea/vomiting issues or concerning vaginal bleeding. Patient is appropriate for follow up in GENERAL ENGINEER clinic. Follow up in 3 weeks with US. Kwame Marcus RN Progress Notes - Orders Only - 05/10/2024 - GA:5w6d 05/10/2024 - 5w6d - Clover Garrett RN Rx resent. Last Filed Vital Signs Vital Sign Reading Time Taken Comments Blood Pressure 98/60 02/03/2025 11:04 AM CDT Pulse 59 02/03/2025 11:04 AM CDT Temperature 36.7 C (98.1 F) 02/03/2025 11:04 AM CDT Respiratory Rate 19 01/05/2025 12:5 9 PM NEON TUBE PUMPER Oxygen Saturation 100% 02/03/2025 11: 04 AM CDT Inhaled Oxygen Concentration - - Weight 110.9 kg (244 lb 6.4 oz) 025 11:04 AM CDT Height 167.6 cm (5' 6 ) 12/22/2024 8:19 AM NEON TUBE PUMPER Body Mass Index 39.45 12/22/2024 8:19 AM NEON TUBE PUMPER Plan of Treatment Health Maintenance Due Date Last Done Comments Pneumococcal vaccine <65 (1 of 1 - PPSV23) 2008 06/29/2004, 06/27/2003, 04/25/2003, Additional history exists Meningococcal B Vaccine (1 o f 2 - Standard) 2018 Regular Well Visit/Exam 18-64 07/29/2024 07/29/2023 Cervical Cancer Screening 01/29/2025 01/30/2024 Influenza Vaccine (Season Ended) 2025 07/28/2018, 08/11/2017, 11/07/2016, Additional history exists Chlamydia and Gonorrhea (GC/ CT) Screening 12/09/2025 12/09/2024, 11/23/2024, 08/16/2024, Additional history exists Depression Screening 02/03/2026 02/03/2025, 12/27/2024, 12/27/2024, Additional history exists DTaP/Tdap/Td Vaccine (9 - Td or Tdap) 10/13/2034 10/13/2024, 10/14/2023, 04/12/2014, Additional history exists Varicella Vaccines Completed 06/13/2014, 0 03/02/2008, 12/23/2003 HPV Vaccines Completed 10/14/2014, 06/03, 04/12/2014 Hepatitis B Screening Completed 01/27/2024 , 06/27/2003, 02/21/2003, Additional history exists Hepatitis C Screening Completed 05/21/2024, 023 Procedures Procedure Name Priority Date/Time Associated Diagnosis Comments POCT HCG, URINE Routine 02/03/2025 11:20 AM CDT Negative test URINE CULTURE Routine 01/05/2025 4:28 PM NEON TUBE PUMPER Encounter for routine follow-up PROTEIN / CREATININE RATIO, URINE, RANDOM Routine 01/05/2025 3:06 PM NEON TUBE PUMPER Encounter for routine follow-up EGFR Routine 01/05/2025 1:49 PM NEON TUBE PUMPER Encounter for routine follow-up COMPREHENSIVE METABOLIC PANEL Routine 01/05/2025 1:49 PM NEON TUBE PUMPER Encounter for routine follow-up CBC WITHOUT DIFFERENTIAL Routine 01/05/2025 1:49 PM NEON TUBE PUMPER Encounter for routine follow-up SC AN PROCEDURE PLACEHOLDER Routine 12/22/2024 3:08 PM NEON TUBE PUMPER PROTEIN / CREATININE RATIO, URINE, RANDOM Routine 12/22/2024 10:04 AM NEON TUBE PUMPER EGFR STAT 12/22/2024 9:19 AM NEON TUBE PUMPER URIC ACID Routine 12/22/2024 9:19 AM NEON TUBE PUMPER COMPREHENSIVE METABOLIC PANEL STAT 12/22/2024 9:19 AM NEON TUBE PUMPER CBC WITHOUT DIFFERENTIAL STAT 12/22/2024 9:19 AM NEON TUBE PUMPER TYPE AND SCREEN STAT 12/22/2024 9:19 AM NEON TUBE PUMPER RPR STAT 12/22/2024 9:19 AM NEON TUBE PUMPER US OB LIMITED IP Routine 12/22/2024 8:59 AM NEON TUBE PUMPER Encounter for induction of labor URINE CULTURE STAT 12/17/2024 9:54 PM NEON TUBE PUMPER POCT URINALYSIS (CLINITEK) Routine 12/17/2024 9:45 PM NEON TUBE PUMPER EGFR STAT 12/12/2024 8:27 PM NEON TUBE PUMPER PROTEIN / CREATININE RATIO, URINE, RANDOM STAT 12/12/2024 8:27 PM NEON TUBE PUMPER COMPREHENSIVE METABOLIC PANEL STAT 12/12/2024 8:27 PM NEON TUBE PUMPER CBC WITHOUT DIFFERENTIAL STAT 12/12/2024 8:27 PM NEON TUBE PUMPER N. GONORRHOEAE/C. TRACHOMATIS AMPLIFICATION Routine 12/09/2024 2:28 PM NEON TUBE PUMPER , unspecified gestational age TRICHOMONAS VAGINALIS PCR Routine 12/09/2024 2:28 PM NEON TUBE PUMPER , unspecified gestational age TYPE AND SCREEN Routine 12/09/2024 11:38 AM NEON TUBE PUMPER , unspecified gestational age EGFR Routine 12/09/2024 11:35 AM NEON TUBE PUMPER Supervision of other normal , antepartum CBC WITHOUT DIFFERENTIAL Routine 12/09/2024 11:35 AM NEON TUBE PUMPER , unspecified gestational age COMPREHENSIVE METABOLIC PANEL Routine 12/09/2024 11:35 AM NEON TUBE PUMPER Supervision of other normal , antepartum HIV 1/2 ANTIBODY PLUS P24 ANTIGEN Routine 12/09/2024 11:35 AM NEON TUBE PUMPER , unspecified gestational age RPR Routine 12/09/2024 11:35 AM NEON TUBE PUMPER , unspecified gestational age GROUP B STREPTOCOCCUS CULTURE Routine 12/09/2024 11:09 AM NEON TUBE PUMPER OB FOLLOW UP Schedule Routine, Read Routine (OP Routine) 12/09/2024 10:28 AM NEON TUBE PUMPER Supervision of other normal , antepartum RESPIRATORY PATHOGEN PANEL Routine 11/30/2024 4:10 PM NEON TUBE PUMPER ECG 12-LEAD Routine 11/30/2024 3:59 PM NEON TUBE PUMPER POCT URINALYSIS (CLINITEK) Routine 11/30/2024 3:57 PM NEON TUBE PUMPER TRICHOMONAS VAGINALIS PCR STAT 11/23/2024 3:51 PM NEON TUBE PUMPER N. GONORRHOEAE/C. TRACHOMATIS AMPLIFICATION STAT 11/23/2024 3:51 PM NEON TUBE PUMPER EGFR STAT 11/23/2024 2:39 PM NEON TUBE PUMPER DIFFERENTIAL AUTO STAT 11/23/2024 2:3 9 PM NEON TUBE PUMPER PROTEIN / CREATININE RATIO, URINE, RANDOM STAT 11/23/2024 2:39 PM NEON TUBE PUMPER COMPREHENSIVE METABOLIC PANEL STAT 11/23/2024 2:39 PM NEON TUBE PUMPER CBC WITH AUTO DIFFERENTIAL STAT 11/23/2024 2:39 PM NEON TUBE PUMPER HEPATITIS C ANTIBODY Routine 05/21/2024 12:00 PM [...] 02/03/2025 11:2 0 AM CDT Noreen Rucker NP POINT OF CARE TEST ORDERABL ES Final Result * Urine culture Urine, clean voided (01/05/2025 4:28 PM NEON TUBE PUMPER) Pathologist [facility] Report Final Report: Less than 100,000 colonies/mL (clinically insignificant growth based on current clinical standards) Organism (CLINICALLY INSIGNIFICANT GROWTH [facility] Urine, clean voided 01/05/2025 4:28 PM NEON TUBE PUMPER 01/05/2025 5:06 PM NEON TUBE PUMPER Narrative [facility] - 01/06/2025 6:30 PM NEON TUBE PUMPER Testing performed by [facility] ([phone]) Noreen Rucker NP LAB MICROBIOLOGY - GENERAL ORDERABLES Final Result Performing Organization Address [facility] Co de Phone Number [facility] [place] [address] * Protein / creatinine ratio, urine, random (01/05/2025 3:06 PM NEON TUBE PUMPER) [facility] Protein, ur, quant 13.6 mg/dL Comment: Interpretive Data No reference range established. Current interpretive data was last revised 2019. Creatinine Ur 95.0 mg/dL [facility] Comment: Interpretive Data No reference range established. Current interpretive data was last revised 2019. Protein/creatinin e ratio 143.2 0.0 - 180.0 mg/g CR [facility] Urine 01/05/2025 3:06 PM NEON TUBE PUMPER 01/05/2025 4:44 PM NEON TUBE PUMPER Noreen Rucker NP LAB URINE ORDERABLES Final Result Performing Organization Address City/[facility]/ZIP Co de Phone Number [facility] [place] [address] * eGFR (01/05/2025 1:49 PM NEON TUBE PUMPER) [facility] eGFR >90 >=60 mL/min/1. 73 m2 Comment: [...] last reviewed 2021. Blood 01/05/2025 1:49 PM NEON TUBE PUMPER 01/05/2025 2:47 PM NEON TUBE PUMPER Noreen Rucker NP LAB BLOOD ORDERABLES Final Result [facility] [place] [address] * (ABNORMAL) CBC without differential (01/05/2025 1:49 PM NEON TUBE PUMPER) WBC 11.3(H) 3.8 - 9.9 K/cumm Hgb 12.4 11.9 - 15.5 g/dL [facility] Hct 40.8 35.6 - 45.5 % [facility] Plt 434(H) 150 - 400 K/cumm [facility] MPV 10.3 9.1 - 12.3 fL [facility] RBC 5.44(H) 3.90 - 5.20 M/cumm [facility] MCV 75.0(L) 81.3 - 96.4 fL [facility] MCH 22.8(L) 27.1 - 33.3 pg [facility] MCHC 30.4(L) 32.3 - 35.7 g/dL [facility] RDW CV 14.8 11.1 - 14.9 % [facility] RDW SD 39.9 35.7 - 48.1 fL [facility] NRBC abs 0.00 0.00 - 0.01 K/cumm [facility] Blood 01/05/2025 1:49 PM NEON TUBE PUMPER 01/05/2025 2:47 PM NEON TUBE PUMPER Noreen Rucker GENERAL ENGINEER LAB BLOOD ORDERABLES Final Result [facility] [place] [address] * (ABNORMAL) Comprehensive metabolic panel (01/05/2025 1:49 PM NEON TUBE PUMPER) Sodium 145 135 - 145 mmol/L Potassium, pl 4.1 3.3 - 4.9 mmol/L [facility] Chloride 106 97 - 110 mmol/L [facility] CO2 28 22 - 32 mmol/L [facility] Anion gap 11 2 - 15 mmol/L [facility] BUN 14 6 - 25 mg/dL [facility] Creatinine 0.76 0.60 - 1.10 mg/dL [facility] Glucose 88 70 - 199 mg/dL [facility] Comment: Interpretive Data Fasting glucose >/= 126 [...] 2022. Calcium 8.9 8.5 - 10.3 mg/dL [facility] Bilirubin, total <0.2 0.1 - 1.2 mg/dL [facility] Comment:Reviewed Protein, pl 7.0 6.5 - 8.5 g/dL [facility] Albumin 3.7 3.5 - 5.0 g/dL [facility] Alk phos 156(H) 40 - 130 Units/L [facility] ALT 36 7 - 45 Units/L [facility] Comment:Reviewed AST 34 10 - 45 Units/L [facility] Blood 01/05/2025 1:49 PM NEON TUBE PUMPER 01/05/2025 2:47 PM NEON TUBE PUMPER Noreen Ellienathan Rucker NP LAB BLOOD ORDERABLES Final Result [facility] [place] [address] * SC AN PROCEDURE PLACEHOLDER (12/22/2024 3:08 PM NEON TUBE PUMPER) Narrative Nhan Olivia CRNA - 12/22/2024 3:08 PM NEON TUBE PUMPER Nhan Olivia CRNA 12/22/2024 3:08 PM Epidural Block Patient location: L&D Reason for block: labor analgesia Staff: Supervising provider: Roger Rivas MD Placed by: MINUTE CLERK FOR BASIC TRAFFIC: Nhan Olivia CRNA Procedure prep: Preprocedure checklist: [...] patient tolerated procedure well with no complications Roger Rivas MD ANESTHESIA ORDERABLES Fi nal Result * (ABNORMAL) Protein / creatinine ratio, urine, random (12/22/2024 10:04 AM NEON TUBE PUMPER) Protein, ur, quant 32.9 mg/dL Comment: Interpretive Data No reference range established. Current interpretive data was last revised 2019. Creatinine Ur 180.3 mg/dL [facility] Comment: Interpretive Data No reference range established. Current interpretive data was last revised 2019. Protein/creatinin e ratio 182.5(H) 0.0 - 180.0 mg/g CR [facility] Urine 12/22/2024 10:0 4 AM NEON TUBE PUMPER 12/22/2024 10:16 AM NEON TUBE PUMPER us Alvino Angel [facility] LAB URINE ORDERABLES Final Result Performing Organization Address [facility]/ZIP Co de Phone Number [facility] Department [place] [address] * eGFR (12/22/2024 9:19 AM NEON TUBE PUMPER) eGFR >90 >=60 mL/min/1. 73 m2 Comment: [...] last reviewed 2021. Blood 12/22/2024 9:19 AM NEON TUBE PUMPER 12/22/2024 9:31 AM NEON TUBE PUMPER Alvino ROB LAB BLOOD ORDERABLES Final Result Performing Organization Address [facility]/ZIP Co de Phone Number CERNER [facility] [place] [address] * RPR Blood (12/22/2024 9:19 AM NEON TUBE PUMPER) [facility] RPR Nonreactive Nonreactive Blood 12/22/2024 9:19 AM NEON TUBE PUMPER 12/22/2024 9:31 AM NEON TUBE PUMPER Alvino ROB LAB MICROBIOLOGY - GENERAL ORDERABLES Final Result Performing Organization Address City/[facility] Co de Phone Number [facility] Department [place] [address] * (ABNORMAL) CBC without differential (12/22/2024 9:19 AM NEON TUBE PUMPER) [facility] WBC 10.3(H) 3.8 - 9.9 K/cumm Hgb 10.8(L) 11.9 - 15.5 g/dL [facility] Hct 33.8(L) 35.6 - 45.5 % [facility] Plt 402(H) 150 - 400 K/cumm [facility] MPV 10.3 9.1 - 12.3 fL [facility] RBC 4.55 3.90 - 5.20 M/cumm [facility] MCV 74.3(L) 81.3 - 96.4 fL [facility] MCH 23.7(L) 27.1 - 33.3 pg [facility] MCHC 32.0(L) 32.3 - 35.7 g/dL [facility] RDW CV 14.5 11.1 - 14.9 % [facility] RDW SD 38.5 35.7 - 48.1 fL [facility] NRBC abs 0.00 0.00 - 0.01 K/cumm [facility] Blood 12/22/2024 9:19 AM NEON TUBE PUMPER 12/22/2024 9:31 AM NEON TUBE PUMPER Alvino Angel CNM LAB BLOOD ORDERABLES Final Result Performing Organization Address City/[facility]/ZIP Co de Phone [facility] [place] [address] * Type and screen (12/22/2024 9:19 AM NEON TUBE PUMPER) [facility] ABO Rh O Positive Nitin, indirect Negative [facility] Blood 12/22/2024 9:19 AM NEON TUBE PUMPER 12/22/2024 9:39 AM NEON TUBE PUMPER Narrative [facility] - 12/22/2024 10:36 AM NEON TUBE PUMPER Has the patient had Daratumumab or Isatuximab in the past 6 months?->Unknown Alvino ROB LAB BLOOD BANK TEST ORDERAB LES Final Result [facility] [place] [address] * Uric acid (12/22/2024 9:19 AM NEON TUBE PUMPER) [facility] Uric acid 4.8 2.5 - 7.0 mg/dL Blood 12/22/2024 9:19 AM NEON TUBE PUMPER 12/22/2024 9:31 AM NEON TUBE PUMPER Alvino Angel [facility] LAB BLOOD ORDERABLES Final Result [facility] Department [place] [address] * (ABNORMAL) Comprehensive metabolic panel (12/22/2024 9:19 AM NEON TUBE PUMPER) [facility] Sodium 141 135 - 145 mmol/L Potassium, pl 3.8 3.3 - 4.9 mmol/L [facility] Chloride 107 97 - 110 mmol/L [facility] CO2 24 22 - 32 mmol/L [facility] Anion gap 10 2 - 15 mmol/L [facility] BUN 6 6 - 25 mg/dL [facility] Creatinine 0.58(L) 0.60 - 1.10 mg/dL [facility] Glucose 89 70 - 199 mg/dL [facility] Comment: Interpretive Data Fasting glucose >/= 126 [...] 2022. Calcium 9.0 8.5 - 10.3 mg/dL [facility] Bilirubin, total 0.2 0.1 - 1.2 mg/dL [facility] Protein, pl 6.8 6.5 - 8.5 g/dL [facility] Albumin 3.3(L) 3.5 - 5.0 g/dL [facility] Alk phos 196(H) 40 - 130 Units/L [facility] ALT 9 7 - 45 Units/L [facility] AST 14 10 - 45 Units/L [facility] Blood 12/22/2024 9:19 AM NEON TUBE PUMPER 12/22/2024 9:31 AM NEON TUBE PUMPER us Alvino Angel [facility] LAB BLOOD ORDERABLES Final Result [facility] [place] [address] * US Ob Limited (12/22/2024 8:59 AM NEON TUBE PUMPER) Anatomical Region Laterality Modality Abdomen N/A Ultrasound Narrative 12/22/2024 8:59 AM NEON TUBE PUMPER Vertex I have reviewed the images and agree with above. Tanvir Beatty MD us Tanvir Beatty MD IMG OB US PROCEDURES Final Result * Urine culture Urine, clean voided (12/17/2024 9:54 PM NEON TUBE PUMPER) Report Final Report: Less than 100,000 colonies/mL (clinically insignificant growth based on current clinical standards) Organism (CLINICALLY INSIGNIFICANT GROWTH [facility] Urine, clean voided 12/17/2024 9:54 PM NEON TUBE PUMPER 12/17/2024 10:02 PM NEON TUBE PUMPER Narrative [facility] - 12/19/2024 10:26 AM NEON TUBE PUMPER Indications for Culture:-> patient Specimen received in a sterile container. Testing performed by [facility]biology Laboratory ([phone]) us Aidan Osullivan GENERAL ENGINEER LAB MICROBIOLOGY - GENER AL ORDERABLES Final Result [facility] [place] [address] * (ABNORMAL) POCT urinalysis (Clinitek) (12/17/2024 9:45 PM NEON TUBE PUMPER) Color, ur, POC Yellow Yellow Clarity, UA, POC Clear Clear [facility] Glucose, ur, POC Negative Negative [facility] Bilirubin, ur, POC Negative Negative [facility] Ketones, ur, POC Negative Negative [facility] Specific gravity, ur, POC 1.015 1.010 - 1.025 [facility] Blood, ur, POC Negative Negative [facility] pH, ur, POC 7.0 [facility] Comment: Interpretive Data Urine pH is affected by diet, medications, systemic acid-base disturbances, and renal tubular function. pH may affect urinary stone formation. For example, urine pH below 6.0 may help reduce the tendency for calcium phosphate stones and pH greater than 6.0 may reduce the tendency for uric acid stone formation. Source: Orrum Attensity. Last Revised Date: 11-13-2017 Protein, ur, POC Negative Negative [facility] Urobilinogen, ur, POC 0.2 mg/dL mg/dL [facility] Nitrites, ur, POC Negative Negative [facility] Leukocyte esterase, ur, POC 1+(A) Negative [facility] Urine 12/17/2024 9:45 PM NEON TUBE PUMPER 12/17/2024 9:45 PM NEON TUBE PUMPER us Antonio Funez MD LAB POCT ORDERABLES - DEV ICE Final Result Performing Organization Address [facility] Co de Phone Number MEHNAZ [facility] [place] [address] * eGFR (12/12/2024 8:27 PM NEON TUBE PUMPER) Pathologist [facility] eGFR >90 >=60 mL/min/1. 73 m2 Comment: [...] last reviewed 2021. Blood 12/12/2024 8:27 PM NEON TUBE PUMPER 12/12/2024 8:46 PM NEON TUBE PUMPER Venecia You MD LAB BLOOD ORDERABLES F inal Result Performing Organization Address [facility] Co de Phone Number [facility] [place] [address] * Protein / creatinine ratio, urine, random (12/12/2024 8:27 PM NEON TUBE PUMPER) Pathologist [facility] Protein, ur, quant <5.0 mg/dL Comment: Interpretive Data No reference range established. Current interpretive data was last revised 2019. Creatinine Ur 36.0 mg/dL [facility] Comment: Interpretive Data No reference range established. Current interpretive data was last revised 2019. Protein/creatinin e ratio <138.9 0.0 - 180.0 mg/g CR [facility] Urine 12/12/2024 8:27 PM NEON TUBE PUMPER 12/12/2024 8:46 PM NEON TUBE PUMPER Venecia You MD LAB URINE ORDERABLES F inal Result Performing Organization Address [facility] de Phone Number [facility] [place] [address] * (ABNORMAL) CBC without differential (12/12/2024 8:27 PM NEON TUBE PUMPER) Pathologist [facility] WBC 10.4(H) 3.8 - 9.9 K/cumm Hgb 10.8(L) 11.9 - 15.5 g/dL [facility] Hct 33.5(L) 35.6 - 45.5 % [facility] Plt 376 150 - 400 K/cumm [facility] MPV 10.1 9.1 - 12.3 fL [facility] RBC 4.55 3.90 - 5.20 M/cumm [facility] MCV 73.6(L) 81.3 - 96.4 fL [facility] MCH 23.7(L) 27.1 - 33.3 pg [facility] MCHC 32.2(L) 32.3 - 35.7 g/dL [facility] RDW CV 14.2 11.1 - 14.9 % [facility] RDW SD 37.8 35.7 - 48.1 fL [facility] NRBC abs 0.00 0.00 - 0.01 K/cumm [facility] Blood 12/12/2024 8:27 PM NEON TUBE PUMPER 12/12/2024 8:48 PM NEON TUBE PUMPER Venecia You MD LAB BLOOD ORDERABLES F inal Result Performing Organization Address [facility] Co de Phone Number [facility] Department [place] [address] * (ABNORMAL) Comprehensive metabolic panel (12/12/2024 8:27 PM NEON TUBE PUMPER) Sodium 144 135 - 145 mmol/L Potassium, pl 3.7 3.3 - 4.9 mmol/L [facility] Chloride 109 97 - 110 mmol/L [facility] CO2 25 22 - 32 mmol/L [facility] Anion gap 10 2 - 15 mmol/L [facility] BUN 4(L) 6 - 25 mg/dL [facility] Creatinine 0.63 0.60 - 1.10 mg/dL [facility] Glucose 85 70 - 199 mg/dL [facility] Comment: Interpretive Data Fasting glucose >/= 126 [...] 2022. Calcium 8.9 8.5 - 10.3 mg/dL [facility] Bilirubin, total 0.2 0.1 - 1.2 mg/dL [facility] Protein, pl 6.5 6.5 - 8.5 g/dL [facility] Albumin 3.2(L) 3.5 - 5.0 g/dL [facility] Alk phos 175(H) 40 - 130 Units/L [facility] ALT 7 7 - 45 Units/L [facility] AST 11 10 - 45 Units/L [facility] Blood 12/12/2024 8:27 PM NEON TUBE PUMPER 12/12/2024 8:46 PM NEON TUBE PUMPER us Venecia You MD LAB BLOOD ORDERABLES F inal Result [facility] [place] [address] * N. gonorrhoeae/C. trachomatis Amplification Vaginal (12/09/2024 2:28 PM NEON TUBE PUMPER) C. trachomatis Not Detected [facility] N. gonorrhoeae Not Detected [facility] Comment: Interpretive Data This assay detects Chlamydia trachomatis and Neisseria gonorrhoeae by nucleic acid amplification testing (NAAT). This assay has been cleared by the [place] Food and Drug administration. The performance characteristics of this test have been verified by the [facility] Molecular Infectious Disease laboratory. The performance characteristics of this test have not been evaluated in individuals less than 14 years of age. Current Interpretive Data was last revised on 2023. Vaginal (None) 12/09/2024 2: 28 PM NEON TUBE PUMPER 12/09/2024 2:34 PM NEON TUBE PUMPER Noreen Rucker NP LAB MICROBIOLOGY - GENERAL ORDERABLES Final Result Performing Organization Address [facility] de Phone Number [facility] [place] [address] [facility] * Trichomonas vaginalis PCR Vaginal (12/09/2024 2:28 PM NEON TUBE PUMPER) Pathologist [facility] Trichomonas DNA Not Detected [facility] Comment: Interpretive Data This assay detects Trichomonas vaginalis by nucleic acid amplification testing (NAAT). This assay has been cleared by the [place] Food and Drug administration. The performance characteristics of this test have been verified by the [facility] Molecular Infectious Disease laboratory. The performance of this test has not been evaluated in individuals less than 18 years of age. Current Interpretive Data was last revised on 2023. Vaginal 12/09/2024 2:28 PM NEON TUBE PUMPER 12/09/2024 2:34 PM NEON TUBE PUMPER Noreen Rucker NP LAB MICROBIOLOGY - GENERAL ORDERABLES Final Result Performing Organization Address City/[facility] [place] [address] [facility] * Type and screen (12/09/2024 11:38 AM NEON TUBE PUMPER) Nitin, indirect Negative ABO Rh O Positive [facility] Blood 12/09/2024 11:3 8 AM NEON TUBE PUMPER 12/09/2024 12:42 PM NEON TUBE PUMPER Narrative [facility] - 12/09/2024 1:47 PM NEON TUBE PUMPER Has the patient had Daratumumab or Isatuximab in the past 6 months?->Unknown Noreen Rucker NP LAB BLOOD BANK TEST ORDERAB LES Final Result [facility] [place] [address] * eGFR (12/09/2024 11:35 AM NEON TUBE PUMPER) Pathologist [facility] eGFR >90 >=60 mL/min/1. 73 m2 Comment: [...] reviewed 2021. Blood 12/09/2024 11:3 5 AM NEON TUBE PUMPER 12/09/2024 12:19 PM NEON TUBE PUMPER Noreen Rucker NP LAB BLOOD ORDERABLES Final Result Performing Organization Address City/[facility]/ZIP Co de Phone Number [facility] [place] [address] * HIV 1/2 Antibody plus p24 Antigen Blood (12/09/2024 11:35 AM NEON TUBE PUMPER) [facility] HIV 1/2 ab + p24 ag Nonreactive Nonreactive Comment:Nonreactive for HIV- 1 antigen and HIV-1/HIV-2 antibodies. No laboratory evidence of HIV infection. If acute HIV infection is suspected, consider testing for HIV-1 RNA. Current interpretive data was last revised on 22. Blood 12/09/2024 11:3 5 AM NEON TUBE PUMPER 12/09/2024 12:19 PM NEON TUBE PUMPER Noreen Rucker NP LAB MICROBIOLOGY - GENERAL ORDERABLES Final Result Performing Organization Address [facility] [place] [address] * RPR Blood (12/09/2024 11:35 AM NEON TUBE PUMPER) [facility] RPR Nonreactive Nonreactive Blood 12/09/2024 11:3 5 AM NEON TUBE PUMPER 12/09/2024 12:20 PM NEON TUBE PUMPER Noreen Rucker NP LAB MICROBIOLOGY - GENERAL ORDERABLES Final Result Performing Organization Address City/[facility] [place] [address] * (ABNORMAL) CBC without differential (12/09/2024 11:35 AM NEON TUBE PUMPER) [facility] WBC 10.8(H) 3.8 - 9.9 K/cumm Hgb 11.2(L) 11.9 - 15.5 g/dL [facility] Hct 36.4 35.6 - 45.5 % [facility] Plt 394 150 - 400 K/cumm [facility] MPV 10.2 9.1 - 12.3 fL [facility] RBC 4.66 3.90 - 5.20 M/cumm [facility] MCV 78.1(L) 81.3 - 96.4 fL [facility] MCH 24.0(L) 27.1 - 33.3 pg [facility] MCHC 30.8(L) 32.3 - 35.7 g/dL [facility] RDW CV 14.4 11.1 - 14.9 % [facility] RDW SD 40.3 35.7 - 48.1 fL [facility] NRBC abs 0.00 0.00 - 0.01 K/cumm [facility] Blood 12/09/2024 11:3 5 AM NEON TUBE PUMPER 12/09/2024 12:20 PM NEON TUBE PUMPER us Noreen Rucker NP LAB BLOOD ORDERABLES Final Result [facility] [place] [address] * (ABNORMAL) Comprehensive metabolic panel (12/09/2024 11:35 AM NEON TUBE PUMPER) Sodium 139 135 - 145 mmol/L Potassium, pl 3.8 3.3 - 4.9 mmol/L [facility] Chloride 107 97 - 110 mmol/L [facility] CO2 23 22 - 32 mmol/L [facility] Anion gap 9 2 - 15 mmol/L [facility] BUN 4(L) 6 - 25 mg/dL [facility] Creatinine 0.54(L) 0.60 - 1.10 mg/dL [facility] Glucose 89 70 - 199 mg/dL [facility] Comment: Interpretive Data Fasting glucose >/= 126 [...] 2022. Calcium 9.0 8.5 - 10.3 mg/dL [facility] Bilirubin, total 0.2 0.1 - 1.2 mg/dL [facility] Protein, pl 6.8 6.5 - 8.5 g/dL [facility] Albumin 3.2(L) 3.5 - 5.0 g/dL [facility] Alk phos 179(H) 40 - 130 Units/L [facility] ALT 9 7 - 45 Units/L [facility] AST 16 10 - 45 Units/L [facility] Blood 12/09/2024 11:3 5 AM NEON TUBE PUMPER 12/09/2024 12:19 PM NEON TUBE PUMPER Noreen Rucker NP LAB BLOOD ORDERABLES Final Result Performing Organization Address [facility] Co de Phone Number [facility] [place] [address] * (ABNORMAL) Group B streptococcal culture Vaginal/Rectal (12/09/2024 11:09 AM NEON TUBE PUMPER) Report Amended Report - Complete: Streptococcus agalactiae (Group B Streptococci) (.) Organism STREPTOCOCCUS AGALACTIAE (GROUP B STREPTOCOCCI) [facility] Vaginal/Rectal 12/09/2024 11 :09 AM NEON TUBE PUMPER 12/09/2024 2:29 PM NEON TUBE PUMPER Narrative [facility] - 12/19/2024 10:57 AM NEON TUBE PUMPER Testing performed by [facility] ([phone]). Organism Antibiotic Method Susceptibility Streptococcus agalactiae (Gr [...] Edited Result - Final Performing Organization Address [facility]/ZIP Co de Phone Number [facility] [place] [address] * US Ob Follow Up (12/09/2024 10:28 AM NEON TUBE PUMPER) Pathologist [facility] Fetus# Fetus1 [place] Estimated Weight 3,075 g&grams [facility] Placenta Details anterior, Previa-no, no placental masses [facility] Presentation Transverse Lie [facility] Anatomical Region Laterality Modality Abdomen N/A Ultrasound 12/09/2024 10:3 5 AM NEON TUBE PUMPER Impressions 12/09/2024 11:06 AM NEON TUBE PUMPER [place] IUP at 36w 2d who presents [...] 3. The amniotic fluid volume is normal. Noreen Rucker GENERAL ENGINEER IMG OB US PROCEDURES Final Result * Respiratory pathogen panel Nasopharyngeal (11/30/2024 4:10 PM NEON TUBE PUMPER) [facility] Influenza A RNA Not Detected Not Detected Influenza B RNA Not Detected Not Detected [facility] RSV RNA Not Detected Not Detected [facility] COVID-19 RNA Not Detected Not Detected [facility] Coronavirus 229E RNA Not Detected Not Detected [facility] Coronavirus HKU1 RNA Not Detected Not Detected [facility] Coronavirus NL63 RNA Not Detected Not Detected [facility] Coronavirus OC43 RNA Not Detected Not Detected [facility] Adenovirus DNA Not Detected Not Detected [facility] Metapneumovirus RNA Not Detected Not Detected [facility] Rhinovirus/Enterov irus RNA Not Detected Not Detected [facility] Parainfluenza 1 RNA Not Detected Not Detected [facility] Parainfluenza 2 RNA Not Detected Not Detected [facility] Parainfluenza 3 RNA Not Detected Not Detected [facility] Parainfluenza 4 RNA Not Detected Not Detected [facility] B. pertussis DNA Not Detected Not Detected [facility] B. parapertussis DNA Not Detected Not Detected [facility] C. pneumoniae DNA Not Detected Not Detected [facility] M. pneumoniae DNA Not Detected Not Detected [facility] Nasopharyngeal 11/30/2024 4: 10 PM NEON TUBE PUMPER 11/30/2024 4:23 PM NEON TUBE PUMPER Narrative [facility] - 11/30/2024 6:07 PM NEON TUBE PUMPER Is the Patient experiencing symptoms consistent with COVID?->Yes Surveillance testing for transplant patient?->No Interpretive Data The VisiKard FilmArray Respiratory Panel (RP2.1) assay is a [...] assay has FDA clearance for testing of GENERAL ENGINEER swabs. The performance of additional specimen types has been assessed by the performing laboratory. The performance characteristics of this assay have been determined by [facility] Molecular Infectious Disease Laboratory. Current interpretive data was last revised on 22. Mary Anne Vega GENERAL ENGINEER LAB MICROBIOLOGY - GENER AL ORDERABLES Final Result [facility] [place] [address] * ECG 12 lead (11/30/2024 3:59 PM NEON TUBE PUMPER) Pathologist [facility] Ventricular Rate EKG/Min 79 BPM [facility] Atrial Rate 79 BPM [facility] SC-Interval (MSEC) 158 ms [facility] QRS-Interval (MSEC) 92 ms [facility] QT-Interval (MSEC) 354 ms [facility] QTc 405 ms [facility] P Perry 47 degrees [facility] R Perry 46 degrees [facility] T Perry 24 degrees [facility] Diagnosis Normal sinus rhythm Normal ECG When compared with ECG of 21-JUL-2023 11:06, No significant change was found Confirmed by MARGARITO GASCA M.D ([id number]) on 12/01/2024 8:43:46 AM [facility] 11/30/2024 3:59 PM NEON TUBE PUMPER 12/01/2024 8:43 AM NEON TUBE PUMPER Mary Anne Vega GENERAL ENGINEER ECG ORDERABLES Final Re sult [facility] * (ABNORMAL) POCT urinalysis (Clinitek) (11/30/2024 3:57 PM NEON TUBE PUMPER) Color, ur, POC Yellow Yellow Clarity, UA, POC Clear Clear [facility] Glucose, ur, POC Negative Negative [facility] Bilirubin, ur, POC Negative Negative [facility] Ketones, ur, POC Negative Negative [facility] Specific gravity, ur, POC 1.015 1.010 - 1.025 [facility] Blood, ur, POC Negative Negative [facility] pH, ur, POC 6.0 [facility] Comment: Interpretive Data Urine pH is affected by diet, medications, systemic acid-base disturbances, and renal tubular function. pH may affect urinary stone formation. For example, urine pH below 6.0 may help reduce the tendency for calcium phosphate stones and pH greater than 6.0 may reduce the tendency for uric acid stone formation. Source: [place] Attensity. Last Revised Date: 11-13-2017 Protein, ur, POC Negative Negative CERNER [facility] Urobilinogen, ur, POC 0.2 mg/dL mg/dL [facility] Nitrites, ur, POC Negative Negative [facility]ER [facility] Leukocyte esterase, ur, POC 2+(A) Negative [facility] Urine 11/30/2024 3:57 PM NEON TUBE PUMPER 11/30/2024 3:57 PM NEON TUBE PUMPER us Adrianna Lord MD LAB POCT ORDERABLES - DE VICE Final Result [facility] [place] [address] * N. gonorrhoeae/C. trachomatis Amplification Urine (11/23/2024 3:51 PM NEON TUBE PUMPER) C. trachomatis Not Detected Not Detected [facility] N. gonorrhoeae Not Detected Not Detected [facility] Comment: Interpretive Data This assay detects Chlamydia trachomatis and Neisseria gonorrhoeae by nucleic acid amplification testing (NAAT). This assay has been cleared by the [place] Food and Drug administration. The performance characteristics of this test have been verified by the [facility] Molecular Infectious Disease laboratory. The performance characteristics of this test have not been evaluated in individuals less than 14 years of age. Current Interpretive Data last revised 2023. Urine (None) 11/23/2024 3:51 PM NEON TUBE PUMPER 11/23/2024 4:44 PM NEON TUBE PUMPER Pam Judge NP LAB MICROBIOLOGY - GENERAL ORDERABLES Final Result Performing Organization Address [facility] Co de Phone Number MEHNAZ [facility] [place] [address] [facility] * Trichomonas vaginalis PCR Urine (11/23/2024 3:51 PM NEON TUBE PUMPER) Pathologist [facility] Trichomonas DNA Not Detected Not Detected [facility] Comment: Interpretive Data This assay detects Trichomonas vaginalis by nucleic acid amplification testing (NAAT). This assay has been cleared by the [place] Food and Drug administration. The performance characteristics of this test have been verified by the [facility] Molecular Infectious Disease laboratory. Excess blood in specimens may be inhibitory and result in false negative results. The performance of this test has not been evaluated in women or individuals less than 18 years of age. Current Interpretive Data last revised 2023. Urine 11/23/2024 3:51 PM NEON TUBE PUMPER 11/23/2024 4:44 PM NEON TUBE PUMPER Pam Judge NP LAB MICROBIOLOGY - GENERAL ORDERABLES Final Result Performing Organization Address [facility] de Phone Number MEHNAZ [facility] [place] [address] [facility] * eGFR (11/23/2024 2:39 PM NEON TUBE PUMPER) Pathologist [facility] eGFR >90 >=60 mL/min/1. 73 m2 Comment: [...] last reviewed 2021. Blood 11/23/2024 2:39 PM NEON TUBE PUMPER 11/23/2024 2:55 PM NEON TUBE PUMPER us Pam Judge NP LAB BLOOD ORDERABL ES Final Result [facility] [place] [address] * (ABNORMAL) Differential, auto (11/23/2024 2:39 PM NEON TUBE PUMPER) Neutrophil abs 8.9(H) 1.5 - 6.5 K/cumm Imm gran abs 0.1 0.0 - 0.1 K/cumm [facility] Lymphocyte abs 2.1 0.8 - 3.3 K/cumm [facility] Monocyte abs 0.6 0.2 - 0.8 K/cumm [facility] Eosinophil abs 0.1 0.0 - 0.5 K/cumm [facility] Basophil abs 0.1 0.0 - 0.1 K/cumm [facility] Neutrophil pct 74.9 % [facility] Comment: Interpretive Data Percent cell count reference ranges are not reported, since discordance with absolute values may lead to misinterpretation of CBC data. Current Interpretive Data was last revised on 2018. Imm gran pct 0.5 % [facility] Comment: Interpretive Data Percent cell count reference ranges are not reported, since discordance with absolute values may lead to misinterpretation of CBC data. Current Interpretive Data was last revised on 2018. Lymphocyte pct 18.0 % [facility] Comment: Interpretive Data Percent cell count reference ranges are not reported, since discordance with absolute values may lead to misinterpretation of CBC data. Current Interpretive Data was last revised on 2018. Monocyte pct 5.4 % [facility] Comment: Interpretive Data Percent cell count reference ranges are not reported, since discordance with absolute values may lead to misinterpretation of CBC data. Current Interpretive Data was last revised on 2018. Eosinophil pct 0.8 % [facility] Comment: Interpretive Data Percent cell count reference ranges are not reported, since discordance with absolute values may lead to misinterpretation of CBC data. Current Interpretive Data was last revised on 2018. Basophil pct 0.4 % [facility] Comment: Interpretive Data Percent cell count reference ranges are not reported, since discordance with absolute values may lead to misinterpretation of CBC data. Current Interpretive Data was last revised on 2018. Blood 11/23/2024 2:39 PM NEON TUBE PUMPER 11/23/2024 2:55 PM NEON TUBE PUMPER Pam Judge NP LAB BLOOD ORDERABL ES Final Result [facility] [place] [address] * (ABNORMAL) CBC with auto differential (11/23/2024 2:39 PM NEON TUBE PUMPER) WBC 11.9(H) 3.8 - 9.9 K/cumm Hgb 11.3(L) 11.9 - 15.5 g/dL [facility] Hct 35.0(L) 35.6 - 45.5 % [facility] Plt 380 150 - 400 K/cumm [facility] MPV 9.8 9.1 - 12.3 fL [facility] RBC 4.44 3.90 - 5.20 M/cumm [facility] MCV 78.8(L) 81.3 - 96.4 fL [facility] MCH 25.5(L) 27.1 - 33.3 pg [facility] MCHC 32.3 32.3 - 35.7 g/dL [facility] RDW CV 13.6 11.1 - 14.9 % [facility] RDW SD 38.8 35.7 - 48.1 fL [facility] NRBC abs 0.00 0.00 - 0.01 K/cumm [facility] Blood 11/23/2024 2:39 PM NEON TUBE PUMPER 11/23/2024 2:55 PM NEON TUBE PUMPER Pam Judge NP LAB BLOOD ORDERABL ES Final Result Performing Organization Address [facility] de Phone Number [facility] [place] [address] * Protein / creatinine ratio, urine, random (11/23/2024 2:39 PM NEON TUBE PUMPER) [facility] Protein, ur, quant <5.0 mg/dL Comment: Interpretive Data No reference range established. Current interpretive data was last revised 2019. Creatinine Ur 26.0 mg/dL [facility] Comment: Interpretive Data No reference range established. Current interpretive data was last revised 2019. Protein/creatini ne ratio See Comment 0.0 - 180.0 mg/g CR [facility] Comment:Unable to Calculate Urine 11/23/2024 2:39 PM NEON TUBE PUMPER 11/23/2024 3:02 PM NEON TUBE PUMPER Pam Judge NP LAB URINE ORDERABL ES Final Result Performing Organization Address [facility] de Phone Number [facility] [place] [address] * (ABNORMAL) Comprehensive metabolic panel (11/23/2024 2:39 PM NEON TUBE PUMPER) [facility] Sodium 138 135 - 145 mmol/L Potassium, pl 3.8 3.3 - 4.9 mmol/L [facility] Chloride 106 97 - 110 mmol/L [facility] CO2 23 22 - 32 mmol/L [facility] Anion gap 9 2 - 15 mmol/L [facility] BUN 4(L) 6 - 25 mg/dL [facility] Creatinine 0.47(L) 0.60 - 1.10 mg/dL [facility] Glucose 83 70 - 199 mg/dL [facility] Comment: Interpretive Data Fasting glucose >/= 126 [...] 2022. Calcium 8.6 8.5 - 10.3 mg/dL [facility] Bilirubin, total 0.2 0.1 - 1.2 mg/dL [facility] Protein, pl 6.7 6.5 - 8.5 g/dL [facility] Albumin 3.3(L) 3.5 - 5.0 g/dL [facility] Alk phos 148(H) 40 - 130 Units/L [facility] ALT 8 7 - 45 Units/L [facility] AST 16 10 - 45 Units/L [facility] Blood 11/23/2024 2:39 PM NEON TUBE PUMPER 11/23/2024 2:55 PM NEON TUBE PUMPER Pam Judge NP LAB BLOOD ORDERABL ES Final Result [facility] [place] [address] * Hepatitis C antibody Blood (05/21/2024 12:00 PM CDT) Hep C Ab Nonreactive Nonreactive Comment:Antibodies to HCV no t detected. Does NOT exclude the possibility of recent exposure to HCV. Current interpretive data was last revised on 22 Blood 05/21/2024 12:0 0 PM CDT 05/21/2024 12:14 PM CDT us Melanie Martinez Juan Pablo GENERAL ENGINEER LAB MICROB IOLOGY - GENERAL ORDERABLES Edited Result - Final MEHNAZ [facility] [place] [address] * Pap Only (Cytology Component) (01/30/2024 11:27 AM CDT) Thin prep (Pap test) 01/30/2024 11:27 AM CDT 01/30/2024 2:16 PM CDT Narrative PATHOLOGY [facility] - 02/06/2024 1:57 PM CDT EPIC results best viewed via link to PDF [facility] Tricia DanyPito [facility] [place] [address] Note to Patients: This report may contain [...] Gender: F : 2000 (Age: 23) Address: [address] [place], [place] [id number] [facility] #: [id number] Service: ASSAYER HELPER Location: Patient Type: [facility] SPECIMEN Taken: 01/30/2024 Received: 01/30/2024 Accessioned: 02/03/2024 [...] clinical information and biopsy results as indicated. [facility] Clinical Laboratory Improvement Amendments (CLIA) mandate that cytologic and histologic results be correlated for laboratory quality review specialist & improvement standards. FOR ALL HIGH-GRADE CASES [...] determined by the Surgical Pathology Department at [facility] as part of an ongoing quality director program and in compliance with federally mandated [...] determined by the Surgical Pathology Department of [facility]. It has not been cleared or approved by the [place]. S. Food and Drug Administration. Noreen Rucker NP LAB CYTOLOGY ORDERABLES [facility] al Result PATHOLOGY [facility] 3rd Floor [place], [place] [phone] from Last 3 Months or Most Recently Relevant to Health Maintenance Insurance [facility] Advance Directives For more information, please contact: [phone] * Full Code (Latest Code Status on [...] in case of cardiopulmonary arrest Care Teams Pmo Project Manager Relationship Specialty Start Date End Date Rhianna Chino MD [address] [place] [address] PCP - General Obstetrics and Gynecology 09/03/24
--- OUTSIDE RECORDS SUMMARY | 2025-02-16 17:22 | XMS_ITS | Clinical Summary ---
Author Organization [facility] Address [address] [address] Phone Care Team Providers Care Dedicated Truck Driver Name Role Phone Janette Smith MD Primary Care Provider [phone] Allergies Active Allergy Reactions Criticality Noted Date Comments Amoxicillin Hives High 04/18/2021 Amoxicillin-Pot Clavulanate Hives High 04/18/20 21 Medications ketorolac tromethamine (TORADOL) 10 mg tablet Take 1 Tablet (10 mg) by mouth every 6 hours as needed for Pain. 20 Tablet 04/18/2021 Active Social History Tobacco Use Types Packs/Day Years Used Date Smoking Tobacco: Every Day Comments Unknown Sex and Gender Information Value Date Recorded Sex Assigned at Not on file Legal Sex Female 11:58 AM CDT Gender Identity Not on file Sexual Orientation Not on file Last Filed Vital Signs Vital Sign Reading Time Taken Comments Blood Pressure 118/77 04/18/2021 1:42 PM CDT Pulse - - Temperature 36.4 C (97.6 F) 04/18/2021 12:10 PM CDT Respiratory Rate 18 04/18/2021 1:42 PM CDT Oxygen Saturation 97% 04/18/2021 1:42 PM CDT Inhaled Oxygen Concentration - - Weight 99.8 kg (220 lb) 04/18/2021 12:10 PM CDT Height 167.6 cm (5' 6 ) 04/18/2021 12:10 PM CDT Body Mass Index 35.51 04/18/2021 12:10 PM CDT Plan of Treatment Health Maintenance Due Date Last Done Comments CHLAMYDIA SCREENING (ANNUAL) 11-24 YEARS 2013 HPV VACCINES (1 - 3-dose series) 2017 DTAP/TDAP/TD VACCINES (1 - Tdap) 2021 HEPATITIS B VACCINES (1 of 3 - 19+ 3-dose series) 12/04 CERVICAL CANCER SCREENING 2023 HPV/Cotest (21-29) 2023 PAP SMEAR 2023 INFLUENZA VACCINE (#1) 2024 Insurance MEDICAID Care Teams Dedicated Truck Driver Relationship Specialty Start Date End Date Janette Smith MD [address] [place] [phone] PCP - General Pediatrics 04/18/21
--- OUTSIDE RECORDS SUMMARY | 2025-02-16 17:22 | XMS_ITS | Continuity of Care Document ---
Author Organization [facility] Address [address] [place] [address] Phone Care Team Providers Care Valve Maker Name Role Phone Arguelles OD, Jett Unavailable Unavailable Procedures Procedure Date Eye Exam & Treatment Refraction Advance Directives Directive Yes / No Effective Date File Name No Information Encounters Encounter Description Practice Location Reason(s) For Visit Diagnoses Date Provider Providers Copied on Encounter [facility], [address], [place], [place], [id number], [place] tel:[phone] [address] [facility] No Information 2-200 9 Arguelles OD Jett. [address] [facility] , [address], [place], [address], [place]. tel:[phone] Family History Family Member Type Diagnosis Age At Onset No Information Payers Payer name Insurance type Covered alliance party ID Authoriza tion(s) Medicaid [facility] [id number] Social History Type Description Quantity Date Captured Comments Sex Female Smoking Status No Information Chief Complaint And Reason For Visit No Information Reason For Referral Reason For Referral No Information History Of Present Illness Encounter Date Complaint History Of Prese nt Illness No Information Functional Status Date Functional Assessmen t No Information Instructions Date Instruction Additional Infor mation No Information Assessments Type Assessment Date No Information Patient Care Teams Name Effective Dates (start - stop) Status Members No Information
--- OUTSIDE RECORDS SUMMARY | 2025-02-16 17:22 | XMS_ITS | Clinical Summary ---
Author Organization [facility] Address [address] [place] [address] Phone Care Team Providers Care Engineer Fishing Vessel Name Role Phone Cherelle Smith MD Primary Care Provider [phone] Allergies No known active allergies Medications methylPREDNISol one (MEDROL DOSPACK) 4 MG Tablet Therapy Pack Use as per instructions on package. 1 Tab 0 6 Active VIORELE 0.15-0.02/0.01 MG (23/03) Tablet Take 1 Tab by mouth daily. 6 Active methylphenidate (RITALIN) 10 MG Tablet Take 10 mg by mouth daily. 6 Active sertraline (ZOLOFT) 100 MG Tablet Take 100 mg by mouth daily. 6 Active traZODone (DESYREL) 100 MG Tablet Take 100 mg by mouth nightly. 6 Active Social History Tobacco Use Types Packs/Day Years Used Date Smoking Tobacco: Never Alcohol Use Standard Drinks/Week Comments No 0 (1 standard drink = 0.6 oz pur e alcohol) Comments No Sex and Gender Information Value Date Recorded Sex Assigned at Not on file Legal Sex Female 2:55 PM CDT Gender Identity Not on file Sexual Orientation Not on file Last Filed Vital Signs Vital Sign Reading Time Taken Comments Blood Pressure 110/60 03/01/2016 4:00 PM CDT Pulse 85 03/01/2016 4:00 PM CDT Temperature - - Respiratory Rate 17 03/01/2016 3:15 PM CDT Oxygen Saturation 99% 03/01/2016 4:00 PM CDT Inhaled Oxygen Concentration - - Weight - - Height - - Body Mass Index - - Plan of Treatment Health Maintenance Due Date Last Done Comments Hepatitis C Virus (HCV) Screening 2002 Meningococcal B Immunization (1 of 2 - Standard) 2018 Pap Smear 2023 Influenza Immunization (#1) 07/04/202407/05, 08/11/2017, 11/07/2016, Additional history exists SARS-COV-2 Immunization ( - 2023- season) 2024 Respiratory Syncytial Virus (RSV) Immunization (Adult) (1 - 1-dose 75+ series) 2077 Hepatitis B Immunization Completed 003, 02/21/2003, 01/21/2003, Additional history exists Pneumococcal Immunization Combined Aged Out 06/29/2004, 06/27/2003, 04/25/2003, Additional history exists No longer eligible based on patient's age to complete this topic Hepatitis A Immunization Discontinued 006, 02/20/2005, 02/21/2004 Measles Mumps Rubella (MMR) Immunization Discontinued 03/02/2008, 12/23/2003 Polio (IPV) Immunization Discontinued 008, 03/21/2004, 04/25/2003, Additional history exists DTaP/Tdap/Td Immunization Discontinued 2013, 03/02/2008, 03/21/2004, Additional history exists TdaP Immunization Completed 04/12/2014 Varicella Immunization Discontinued 4, 03/02/2008, 12/23/2003 Human Papillomavirus (HPV) Immunization Completed 10/14/2014, 06/13/2014, 04/12/2014 Meningococcal Immunization (ACWY) Completed 08/02/2019, 04/12/2014 Rotavirus Immunization Aged Out No lo nger eligible based on patient's age to complete this topic Insurance MEDICAID [employer] Care Teams Engineer Fishing Vessel Relationship Specialty Start Date End Date Cherelle Smith MD PCP - General Pediatrics 03/01/16
--- OUTSIDE RECORDS SUMMARY | 2025-02-16 17:22 | XMS_ITS | Clinical Summary ---
Author Organization [facility] Address [address] [place] [address] Care Team Providers Care Temperer Name Role Phone Unavailable Primary Care Provider Unavailabl e Source Comments [facility],non-owned Affiliates and Associated Physician Practices is amultiple site organization consisting of ambulatory clinics and hospital sitesin [place], [place], [place] and [place]. This disclosure is being madepursuant to the Care Everywhere program and may not contain all information available regarding this patient. Last updated 18.[facility] Allergies Active Allergy Reactions Criticality Noted Date Comments Amoxicillin Urticaria Medium 05/04/2020 Augmentin Urticaria Medium 05/04/2020 Medications * Be aware that medications may not be up to date on this document. Alwaysverify current medications with the patient. acetaminophen (TYLENOL) 500 MG tablet Take 1,000 mg by mouth every 4 hours as needed for Fever or Pain Maximum allowable Acetaminophen amount = 4 Grams (4000 mg) / 24 hours. Active sertraline (ZOLOFT) 100 MG tablet Take 100 mg by mouth once daily Active methylphenidat e (RITALIN) 10 MG tablet Take 10 mg by mouth Every morning and lunchtime Active traZODone (DESYREL) 100 MG tablet Take 100 mg by mouth at bedtime Active desogestrel-et hinyl estradiol (VIORELE) 0.15-0.02/0.01 MG (/) tablet Take 1 Tab by mouth once daily Active ibuprofen (MOTRIN) 400 MG tablet Take 1 tablet by mouth every 6 hours as needed for Pain 8 tablet 0 Active Active Problems No known active problems Social History Tobacco Use Types Packs/Day Years Used Date Smoking Tobacco: Never Smokeless Tobacco: Never Alcohol Use Standard Drinks/Week Comments No 0 (1 standard drink = 0.6 oz pur e alcohol) Comments No Sex and Gender Information Value Date Recorded Sex Assigned at Not on file Legal Sex Female 5:43 AM NETWORK SOLUTIONS ARCHITECT Gender Identity Not on file Sexual Orientation Not on file Last Filed Vital Signs Vital Sign Reading Time Taken Comments Blood Pressure 124/90 11/02/2020 12:44 PM NETWORK SOLUTIONS ARCHITECT Pulse 64 11/02/2020 12:44 PM NETWORK SOLUTIONS ARCHITECT Temperature 36.9 C (98.5 F) 11/02/2020 12:44 PM NETWORK SOLUTIONS ARCHITECT Respiratory Rate 20 11/02/2020 12:4 4 PM NETWORK SOLUTIONS ARCHITECT Oxygen Saturation 99% 11/02/2020 12: 44 PM NETWORK SOLUTIONS ARCHITECT Inhaled Oxygen Concentration - - Weight 111.4 kg (245 lb 9.5 oz) 020 12:44 PM NETWORK SOLUTIONS ARCHITECT Height 167 cm (5' 5.75 ) 07/29/2020 10: 23 AM CDT Body Mass Index - - Plan of Treatment Health Maintenance Due Date Last Done Comments HIV SCREENING 2017 HPV VACCINE (1 - 3-dose series) 2017 MENINGOCOCCAL (Group B) VACC INE SHARED DECISION-MAKING (1 of 2 - Standard) 2018 HEPATITIS C SCREENING 12/13/2020 CHLAMYDIA/GONORRHEA SCREENING 07/29/2021 07/29/2020 DTAP/TDAP/TD VACCINES (1 - Tdap) 2021 HEPATITIS B VACCINE (1 of 3 - 19+ 3-dose series) 2021 COVID-19 VACCINE (1 - 2023-2 5 season) 2024 DEPRESSION SCREENING 11/03/2024 INFLUENZA VACCINE (Season Ended) 2025 ZOSTER VACCINE (1 of 2) 2052 HIB VACCINE Aged Out No longer eligi ble based on patient's age to complete this topic MENINGOCOCCAL GROUPS A/C/Y/W VACCINE Aged Out No longer eligible b ased on patient's age to complete this topic PNEUMOCOCCAL VACCINE Aged Out No long er eligible based on patient's age to complete this topic Procedures Procedure Name Priority Date/Time Associated Diagnosis Comments CHLAMYDIA + GC AMPLIFIED PROBE STAT 07/29/2020 12:01 PM CDT from Last 3 Months or Most Recently Relevant to Health Maintenance Results * (ABNORMAL) CHLAMYDIA + GC AMPLIFIED PROBE (STL) (07/29/2020 12:01 PM CDT) Chlamydia Amplified Probe Positive( A) Negative 07/30/2020 1:29 PM CDT [facility] GC Amplified Probe Positive( A) Negative 07/30/2020 1:29 PM CDT [facility] Microbiology URINE / Unknown Collection / Unknown 07/29/2020 12:01 PM CDT 07/29/2020 12:12 PM CDT Narrative [facility] - 07/30/2020 1:29 PM CDT Results based on detection/no detection of ribosomal RNA by amplified method. Edwin Calloway DO LAB - MICROBIOLOGY ORDERA BLES Final Result [facility] [address] [place], [place] [address], [facility] [phone] from Last 3 Months or Most Recently Relevant to Health Maintenance Insurance [facility] MEDICAID - OUT OF STATE [facility]
--- OUTSIDE RECORDS SUMMARY | 2025-02-16 17:22 | XMS_ITS | Encounter Summary ---
Author Organization [facility] Address [address] [place] [address] Phone Care Team Providers Care Sanding Supervisor Name Role Phone Marques Graves MD Primary Care Provider [phone] Rhianna Chino MD Primary Care Provider Encounter Details Date Type Department Care Team (Late st Contact Info) Description 12/09/2022 Documentation [facility]) - [facility] Urology [id number] [place] [address] Medical Office Building [address] [place] [address] Anastasia Cruz Social History Tobacco Use Types Packs/Day Years Used Date Smoking Tobacco: Every Day Vaping Smokeless Tobacco: Never AUDIT-C Answer Date Recorded Q1: How often do you have a drink containing alc ohol? Never 03/07/2022 Average Number of Drinks Not on file 022 Frequency of Binge Drinking Not on file 03/2022 PHQ-2 Answer Date Recorded PHQ-2 Total Score (If total score is 3 or more points, staff should administer the PHQ-9) 1 11/05/2022 Comments Unknown Sex and Gender Information Value Date Recorded Sex Assigned at Not on file Legal Sex Female 12:21 PM ORTHOPEDICS NURSE Gender Identity Female 09/30/2022 1:11 AM ORTHOPEDICS NURSE Sexual Orientation Straight 02/06/2023 11 :12 PM CDT documented as of this encounter Plan of Treatment Not on file documented as of this encounter Visit Diagnoses Not on filedocumented in this encounter Additional Health Concerns Infection Onset Date Last Indicated Resolved Time COVID: Suspected 01/23/2023 01/23/2023 01/23/2023 11:11 AM CDT COVID: Suspected 07/03/2023 07/03/2023 07/03/2023 9:35 PM CDT COVID: Suspected 07/04/2023 07/04/2023 07/05/2023 12:21 AM CDT COVID: Suspected 11/30/2024 11/30/2024 11/30/2024 6:08 PM ORTHOPEDICS NURSE documented as of this encounter Care Teams Sanding Supervisor Relationship Specialty Start Date End Date Marques Graves MD PCP - General Family Medicine 03/04/22 09/02/24 Rhianna Chino MD [address] [place] [id number] PCP - General Obstetrics and Gynecology 09/03/24 documented as of this encounter
[2025-02-16 17:58] LABS: Basophils Percent Auto 0.2 % (0.2-1.2); Eosinophils Absolute Auto 0.9 K/mm3 (0-0.3); Eosinophils Percent Auto 5.7 % (0-4.4); Hematocrit 46.5 % (37.0-47.0); Hemoglobin 14.4 g/dL (12.0-15.0); Immature Granulocyte Absolute 0.05 K/mm3 (0.00-0.031); Immature Granulocyte Percent A 0.3 % (0-0.5); Lymphocytes Absolute Auto 2.47 K/mm3 (0.9-3.2); Lymphocytes Percent Auto 16.1 % (18.3-44.2); Mean Corpuscular Hemoglobin 23.5 pg (26-34); Mean Corpuscular Volume 75.7 fl (80-100); Mean Platelet Volume 9.9 fl (7.4-10.4); Monocytes Absolute Auto 0.7 K/mm3 (0.1-0.6); Monocytes Percent Auto 4.5 % (2.6-8.5); Neutrophils Absolute Auto 11.2 K/mm3 (1.3-6.7); Neutrophils Percent Auto 73.2 % (45.5-73.1); Platelet Count Result 517 k/mm3 (150-375); Red Blood Count 6.14 M/mm3 (4.2-5.4); Red Cell Distribution Width 18.5 % (11.5-14.5); White Blood Count 15.4 K/mm3 (4.5-10.0)
[2025-02-16 18:14] LABS: Alanine Aminotransferase 64 U/L (6-35); Albumin Level 4.5 g/dL (3.5-5.1); Alkaline Phosphatase 137 U/L (38-126); Anion Gap 13 mmol/L (4-12); Aspartate Amino Transferase 39 U/L (14-36); Bilirubin,Total 0.5 mg/dL (0.2-1.3); Blood Urea Nitrogen 16 mg/dL (7-17); Calcium 9.2 mg/dL (8.4-10.2); Carbon Dioxide 22 mmol/L (22-30); Chloride 105 mmol/L (98-107); Estimated CRCL calculation 147 ml/min; Estimated Glomerular Filt Rate > 60; Glucose 108 mg/dL (65-110); Lipase 111 U/L (23-300); Potassium 3.7 mmol/L (3.4-5.0); Sodium 140 mmol/L (137-145)
--- OUTSIDE RECORDS SUMMARY | 2025-02-16 18:28 | XMS_ITS | Continuity of Care Document ---
Author Organization [facility] Address [address] [place] [address] Phone Care Team Providers Care Tungsten Refiner Name Role Phone Arguelles OD, Jett Unavailable Unavailable Procedures Procedure Date Eye Exam & Treatment Refraction Advance Directives Directive Yes / No Effective Date File Name No Information Encounters Encounter Description Practice Location Reason(s) For Visit Diagnoses Date Provider Providers Copied on Encounter [facility], [address], [place], [place], [id number], [place] tel:[phone] SEC [facility] No Information 2-200 9 Arguelles OD Jett. [address] [facility] , [address], [place], [address], [place]. tel:[phone] Family History Family Member Type Diagnosis Age At Onset No Information Payers Payer name Insurance type Covered libertarian ID Authoriza tion(s) Medicaid [facility] [id number] Social History Type Description Quantity Date Captured [...]
--- OUTSIDE RECORDS SUMMARY | 2025-02-16 18:28 | XMS_ITS | Clinical Summary ---
Author Organization [facility] Address [address] [place] [address] Care Team Providers Care Customer Experience Strategist Name Role Phone Rhianna Chino MD Primary Care Provider [phone] Allergies Active Allergy Reactions Criticality Noted Date [...] (constipation) 289 g 12/23/19 25 Active lactic kpee-bdtuez-srrgeu ium (Phexxi) 1.8-1-0.4 % gel vaginal gel [...] # Disposition: Follow up task sent to [facility] scheduling pool for appointments in 2 and 6 weeks. They are enrolled in remote blood pressure monitoring for their BP check. DC home today. Service Coverage These phones are service phones and carried 26/05 in house: R1 (first call) [phone] R1 alt (second call) [phone] R4 (Chief) [phone] Transverse lie of fetus 12/09/2024 Overview (12/09/2024): [...] patch, ring, injection, implant, IUD. Undecided [x] Senior Planning Analyst [x] Car seat discussed [] PP depression [...] Specialized anatomic survey at 20 weeks (Order [id number]) - ordered [x] Serial growth ultrasounds every [...] cream: apply three days per week (eg, Puwnjf-Pbbdybork-Zwiofl) for up to 16 weeks. Wash hands [...] in Assessment & Plan (10/08/2022 12:04 PM PERSONNEL CLERKS SUPERVISOR): Lab Results Component Value Date CHOL 215 [...] day Assessment & Plan (10/08/2022 12:01 PM PERSONNEL CLERKS SUPERVISOR): Stable - continue current regimen Assessment & [...] in 3 days if still symptomatic. Avoid Ludden until all medication complete. Avoid use of bubble baths, perfumed soaps, lotions in vagina. 07/26: Encouraged to take second dose of diflucan. Notify provider if symptoms continue. with inconclusive viability 05/10/2024 06/21/2024 Overview (05/17/2024): Telephone Number Relationship mail Kennedy [phone] (home) Home Yes [] PUL Card Given [...] insurance? If not, make clinic appointment for [place] medicaid specialist OR refer to [place] medicaid office. > has insurance [x] Signed out with attending and kennedy to remove from beta book. Attending Name: Barb Bacterial vaginosis 03/24/2024 06/21/20 Overview (10/28/2023): -Rx Flagyl 500mg take 1 tablet twice daily x 7 days. -Avoid Alcohol while taking. -Rx Fluconazole 150 mg take 1 tablet today/after BV treatment PRN, repeat PRN -Avoid Ludden until after completion of all medication. -Discussed [...] # Disposition: Follow up task sent to [facility] scheduling pool. Desires discharge home today. Leukocytes [...] 06/24/2023 Assessment & Plan (11/08/2022 9:02 PM PERSONNEL CLERKS SUPERVISOR): Self swab done for vaginitis panel. Results came back positive for BV. Patient made aware and treated with Flagyl. Painful urination 11/08/2022 06/24/2023 Assessment & Plan (11/08/2022 9:04 PM PERSONNEL CLERKS SUPERVISOR): Urine sent for culture. Treated for UTI [...] counseling. Assessment & Plan (12/31/2022 11:15 AM PERSONNEL CLERKS SUPERVISOR): Wt Readings from Last 3 Encounters: 12/31/22 [...] counseling. Assessment & Plan (10/08/2022 12:00 PM PERSONNEL CLERKS SUPERVISOR): Wt Readings from Last 3 Encounters: 10/08/22 [...] CDT Office [facility] [address] [place] [address] Floor [address] [place] [phone] Noreen Rucker NP Negative test (Primary Dx); Encounter for routine follow-up 02/02/2025 Telephone [facility] [address] [place] [address] [place] [phone] Kwame Marcus RN 01/07/2025 Orders Only [facility] [address] [place] [address] [place] [phone] Noreen Rucker NP 01/05/2025 3:06 PM PERSONNEL CLERKS SUPERVISOR - 01/05/2025 11:59 PM PERSONNEL CLERKS SUPERVISOR Hospital Encounter [address] [address] Encounter for routine follow-up Discharge Disposition: Discharge to home or self care 01/05/2025 1:00 PM PERSONNEL CLERKS SUPERVISOR Office Visit [facility] [address] [place] [address] Floor [address] [place] [phone] Noreen Rucker NP Encounter for routine follow-up (Primary Dx) 01/04/2025 Telephone [facility] [address] [place] [address] [place] [phone] Christina Gan RN 12/27/2024 10:17 PM PERSONNEL CLERKS SUPERVISOR - 12/28/2024 12:01 AM PERSONNEL CLERKS SUPERVISOR Hospital Encounter [address] [phone] Eleno Tyler MD Discharge Disposition: Discharge to home or self care 12/27/2024 Nurse Triage [address] [phone] Bruna Quiñones RN 12/23/2024 Telephone [facility] [address] [place] [address] [address] [place] [phone] Brenna AguilarPito 12/22/2024 2:36 PM PERSONNEL CLERKS SUPERVISOR Anesthesia Event [place] [phone] Roger Rivas MD ToPam MD 12/22/2024 8:13 AM PERSONNEL CLERKS SUPERVISOR - 12/24/2024 12:26 PM PERSONNEL CLERKS SUPERVISOR Hospital Encounter [place] [address] Antonio Funez MD Russell, Sharman Maurissa, MD Bligard, Ann Marie Flood MD Encounter for induction of labor (Primary Dx); care following vaginal delivery Discharge Disposition: Discharge to home or self care 12/21/2024 Telephone [place] [address] Caroline Miller RN Scheduled Induction 12/17/2024 9:25 PM PERSONNEL CLERKS SUPERVISOR - 12/17/2024 11:40 PM PERSONNEL CLERKS SUPERVISOR [place] [phone] Antonio Funez MD Discharge Disposition: Discharge to home or self care 12/17/2024 Orders Only [facility] [address] [place] [address] [place] [phone] Clover Garrett, KEHINDE 12/16/2024 1:30 PM PERSONNEL CLERKS SUPERVISOR Procedure visit [facility] [address] [place] [address] [address] [place] [phone] Transverse lie of fetus, single or unspecified fetus (Primary Dx) 12/16/2024 1:00 PM PERSONNEL CLERKS SUPERVISOR Office Visit [facility] [address] [place] [address] [address] [place] [phone] Ana Eldridge MD Chronic hypertension (Primary Dx); Obesity, unspecified class, unspecified obesity type, unspecified whether serious comorbidity present; Supervision of other normal , antepartum; Marginal insertion of umbilical cord affecting management of mother; Short interval between pregnancies; Moderate episode of recurrent major depressive disorder (HCC); Rectal lesion 12/16/[address] [phone] Ana Eldridge MD 12/12/2024 7:53 PM PERSONNEL CLERKS SUPERVISOR - 12/12/2024 10:55 PM PERSONNEL CLERKS SUPERVISOR Hospital Encounter [address] [phone] Venecia You MD Discharge Disposition: Discharge to home or self care 12/12/[address] [phone] Sue Carrion RN Incoming Call (23 y/o at 36 5/7 weeks EGA calls reporting BP 140/100 this afternoon. Also reports mild headache. Denies LOF,VB,contractions. Instructed she may take tylenol 1000 mg for headache relief, and to recheck BP in 15 min. Instructed to come to [facility] if BP 160/110 or if headache is not relieved by tylenol. Instructed to come to [facility] for other symptoms preeclampsia, Ruq pain, increased headache, visual cheanges, increased swelling, decreased urination, DFM, LOF or VB. Verbalizes understanding of ins) 12/10/2024 9:07 PM PERSONNEL CLERKS SUPERVISOR - 12/10/2024 10:45 PM PERSONNEL CLERKS SUPERVISOR Hospital Encounter [address] [phone] Eleno Tyler MD Discharge Disposition: Discharge to home or self care 12/09/2024 11:15 AM PERSONNEL CLERKS SUPERVISOR Office Visit [facility] [address] [place] [address] Outpatient Health 3rd Floor [address] [place] [phone] Noreen Rucker NP , unspecified gestational age [...] single or unspecified fetus 12/09/2024 10:28 AM PERSONNEL CLERKS SUPERVISOR - 12/09/2024 11:59 PM PERSONNEL CLERKS SUPERVISOR Hospital Encounter [facility] - Ultrasound [address] [place] [address] Supervision of other normal , antepartum Discharge Disposition: Discharge to home or self care 12/05/2024 Nurse Triage [address] [phone] Bruna Quiñones RN 11/30/2024 3:43 PM PERSONNEL CLERKS SUPERVISOR - 11/30/2024 5:53 PM PERSONNEL CLERKS SUPERVISOR Hospital Encounter [address] [phone] Adrianna Lord MD Discharge Disposition: Discharge to home or self care 11/25/2024 8:45 AM PERSONNEL CLERKS SUPERVISOR Office Visit [facility] [address] [place] [address] 3rd Floor [address] [place] [phone] Noreen Rucker NP Chronic hypertension (Primary Dx); Obesity, unspecified class, unspecified obesity type, unspecified whether serious comorbidity present; Short interval between pregnancies; Rubella non-immune status, antepartum; Marginal insertion of umbilical cord affecting management of mother; Supervision of other normal , antepartum; Moderate episode of recurrent major depressive disorder (HCC); Pelvic and perineal pain 11/23/2024 1:56 PM PERSONNEL CLERKS SUPERVISOR - 11/23/2024 4:44 PM PERSONNEL CLERKS SUPERVISOR Hospital Encounter [address] [phone] Adrianna Lord MD Britt-Ludditt, Pam Paul NP [...] uit: Not Asked; Counseling Given: Not Answered [facility] [employer] Answer Date Recorded In the past 12 months has e [employer], oil, or water [employer] threatened to shut off services in your [...] often do you attend chur ch or jehovah's witness services? Never 12/23/2024 Do you belong to any clubs o r organizations such as buddhism groups, unions, fraternal or athletic groups, or [...] staff should administer the PHQ-9) 0 12/27/2024 [facility] - Occupational Stress Questionnaire Answer Date Recorded [...] place to sleep or slept in a group home (including now)? No 12/01/2023 [place] Depression Scale Answer Date Recorded [place] Depression Scale Total 6 02/03/2025 The thought [...] any time in the past 12 m [facility], were you homeless or living in a group home (including now)? No 12/23/2024 Personal Safety Answer [...] on file Legal Sex Female 12:21 PM PERSONNEL CLERKS SUPERVISOR Gender Identity Female 09/30/2022 1:11 AM PERSONNEL CLERKS SUPERVISOR Sexual Orientation Straight 02/06/2023 11 :12 PM [...] santacruz, Eleno Dos Santos MD Complications:None Delivery Location:[facility] Main C amp[facility] ([facility]LD) 2024 Term 38w 1d 10h 44m 10h 02m/0h 37m/0h 05m 3.59 kg (7 lb 14.6 oz) F Vagina l Epidur al N Livin g 7 7 Jennie Manzo MD Complications:None Delivery Location:[facility] Main C [facility] ([facility]) Summary Episode Dates Number of Fetuses [...] Lu MD at 01/19/2025 11:42 AM CDT ONNEL CLERKS SUPERVISOR Associated attestation - Pam Lu MD - [...] Provider aware of EPDS. Alvino Pelletier, KEHINDE ONNEL CLERKS SUPERVISOR Progress Notes - Hospital En counter - [...] 500 mg 500 mg oral QID PRN Clover Pennington MD docusate sodium (COLACE) capsule 100 mg 100 mg oral BID Clover Pennington MD 100 mg at 12/24/24 0810 enoxaparin (LOVENOX) syringe 40 mg 40 mg subcutaneous Q12H Clover Rutledge MD hydrocortisone (ANUSOL-HC) 2.5 % rectal cream rectal TID PRN Clover Pennington MD ibuprofen (ADVIL,MOTRIN) tablet 600 mg 600 mg oral Q6H Clover Rutledge MD 600 mg at 12/24/24 0810 systjch-znjqm-pwjvebz (MMR) 1,000-12,500 TCID50/0.5 mL live vaccine 0.5 mL 0.5 mL subcutaneous During hospitalization Clover Pennington MD ondansetron ODT (ZOFRAN-ODT) disintegrating tablet 4 mg 4 mg oral Q6H PRN Clover Pennington MD Or ondansetron (ZOFRAN) injection 4 mg 4 mg intravenous Q6H PRN Clover Pennington MD PNV with bspomsu-jdfx-YZ tablet 1 tablet 1 tablet oral Daily [...] # Disposition: Follow up task sent to [facility] scheduling pool for appointments in 2 and 6 weeks. They are enrolled in remote blood pressure monitoring for their BP check. DC home today. Service Coverage These phones are service phones and carried 26/05 in house: R1 (first call) [phone] R1 alt (second call) [phone] R4 (Chief) [phone] Ruth Navarrete [employer] 12/24/24 Cosigned by Eleno Tyler MD at 12/24/2024 5:43 PM PERSONNEL CLERKS SUPERVISOR ONNEL CLERKS SUPERVISOR ONNEL CLERKS SUPERVISOR 12/23/2024 - 38w1d Carlo Sun MD Post Progress Note Delivery Date/Time: 12/22/2024t 8:34 PM Delivery method: Vaginal [[id number]] Subjective Flatus: Yes Pain: Well controlled Diet: [...] Daily PRN Medications benzocaine-menthoL calcium carbonate hydrocortisone gifsivd-zgscm-jmvkrzc ondansetron ODT OR ondansetron varicella zoster Vitals: [...] # Disposition: Follow up task sent to [facility] scheduling pool for appointments in 2 and 6 weeks. They are enrolled in remote blood pressure monitoring for their BP check. Meeting all milestones. Patient desires discharge tonight if possible. Service Coverage These phones are service phones and carried 26/05 in house: R1 (first call) [phone] R1 alt (second call) [phone] R4 (Chief) [phone] Carlo Cruz MD 12/23/24 R4 Attestation I have reviewed and edited the above note and agree with the documentation. Najma Fischer MD/MPHS Resident Physician, Obstetrics & Gynecology PGY-4 Cosigned by Adrianna Lord MD at 12/23/2024 10:43 AM PERSONNEL CLERKS SUPERVISOR ONNEL CLERKS SUPERVISOR ONNEL CLERKS SUPERVISOR ONNEL CLERKS SUPERVISOR ONNEL CLERKS SUPERVISOR Associated attestation - Adrianna Lord MD - 12/23/2024 10:43 AM PERSONNEL CLERKS SUPERVISOR I have seen and examined the patient [...] alerts were managed clinically. Najma Fischer MD ONNEL CLERKS SUPERVISOR 12/22/2024 - 38w1d - Carlo Cruz MD R1 Update AROM at 1535 with large amount of clear fluid. Patient tolerated exam well. Category 2 with shallow early decelerations. Reassured by moderate variability and accelerations. Carlo Cruz MD PGY-1, Department of Obstetrics and Gynecology ONNEL CLERKS SUPERVISOR 12/22/2024 - 38wjosie - Carlo Cruz MD [...] this patient and alerts were managed clinically. Calro Cruz MD ONNEL CLERKS SUPERVISOR 12/22/2024 - 38w1d - Alvino Angel CNM [...] Tanvir Beatty MD at 12/22/2024 12:26 PM PERSONNEL CLERKS SUPERVISOR ONNEL CLERKS SUPERVISOR ONNEL CLERKS SUPERVISOR 12/22/2024 - 38w1d - Tanvir Beatty MD [...] alerts were managed clinically. Tanvir Beatty MD ONNEL CLERKS SUPERVISOR Progress Notes - Hospital En counter - 12/17/2024 - GA:37w3d 2024 - 37w4d - Taniya Garcia RN Pt arrived to [facility] at 37w3d complaining of constant lower back pain and occasional lower pelvic pain. EFM applied. Tylenol 1000mg po given with relief obtained. VSS and Reactive FHT's Speculum Exam BUILDING DISMANTLER assessment. Urine dip WNL. CCUA obtained and to lab for culture. Pt signed out with Dr. Sánchez per Marjan Osullivan [facility] Discharge instructions given/verbalized understanding Discharged in stable condition. ONNEL CLERKS SUPERVISOR Progress Notes - Orders Only - 12/17/2024 - GA:37w3d 12/17/2024 - w3d - Clover Qiu RN Rx resent under approved provider ONNEL CLERKS SUPERVISOR Progress Notes - Office Visi t - 12/16/2024 - GA:37w2d 12/16/2024 - 37w2d - Ana Eldridge MD OB RETURN VISIT 12/16/2024 Subjective: Isabella Waldron is a 23 y.o. at 37w2d for OB visit. c/b: cHTN, marginal cord insertion (resolved?), rubella equivocal, obesity, MDD, short interval , GBS+, HSV1. Seen in the [facility] on 12/12 with headache. Patient normotensive. Discharged [...] Specialized anatomic survey at 20 weeks (Order [id number]) - ordered [x] Serial growth ultrasounds every [...] patch, ring, injection, implant, IUD. Undecided [x] Senior Planning Analyst [x] Car seat discussed [] PP depression [...] rectal lesion in . Ana Eldridge MD TOOL DESIGN CHECKER PGY-3 Cosigned by Pam Lu MD at 12/16/2024 2:37 PM PERSONNEL CLERKS SUPERVISOR ONNEL CLERKS SUPERVISOR ONNEL CLERKS SUPERVISOR Associated attestation - Pam uL MD - 12/16/2024 2:37 PM PERSONNEL CLERKS SUPERVISOR I have seen and examined the patient. [...] questions answered, pt verbalized understanding of all. ONNEL CLERKS SUPERVISOR Progress Notes - Office Visi t - [...] pills, patch, ring, injection, implant, IUD. [x] Senior Planning Analyst [x] Car seat discussed [] PP depression [...] Specialized anatomic survey at 20 weeks (Order [id number]) - ordered [x] Serial growth ultrasounds every [...] consult scheduled for 12/16/24 Noreen Rucker NP ONNEL CLERKS SUPERVISOR Progress Notes - Office Visi t - [...] pills, patch, ring, injection, implant, IUD. [x] Senior Planning Analyst [x] Car seat discussed [] PP depression [...] Specialized anatomic survey at 20 weeks (Order [id number]) - ordered [] Serial growth ultrasounds every [...] Offered PT, patient considering Noreen Rucker NP ONNEL CLERKS SUPERVISOR Progress Notes - Office Visi t - [...] pills, patch, ring, injection, implant, IUD. [x] Senior Planning Analyst [x] Car seat discussed [] PP depression [...] Specialized anatomic survey at 20 weeks (Order [id number]) - ordered [] Serial growth ultrasounds every [...] (PTB) and low weight. Noreen Rucker NP ONNEL CLERKS SUPERVISOR Progress Notes - Office Visi t - [...] pills, patch, ring, injection, implant, IUD. [] Senior Planning Analyst: [] Car seat discussed [] PP depression [...] Specialized anatomic survey at 20 weeks (Order [id number]) - ordered [] Serial growth ultrasounds every [...] (PTB) and low weight. Noreen Rucker NP ONNEL CLERKS SUPERVISOR ONNEL CLERKS SUPERVISOR Progress Notes - Office Visi t - [...] c/f infected tooth. Dental resources set via test company message. movement: Yes Vaginal Bleeding: No LOF: [...] pills, patch, ring, injection, implant, IUD. [] Senior Planning Analyst: [] Car seat discussed [] PP depression [...] Specialized anatomic survey at 20 weeks (Order [id number]) - ordered [] Serial growth ultrasounds every [...] (PTB) and low weight. Noreen Rucker NP ONNEL CLERKS SUPERVISOR Progress Notes - Office Visi t - [...] pills, patch, ring, injection, implant, IUD. [] Senior Planning Analyst: [] Car seat discussed [] PP depression [...] Specialized anatomic survey at 20 weeks (Order [id number]) - ordered [] Serial growth ultrasounds every [...] diphenhydramine-zinc acetate (BENADRYL) cream Noreen Rucker NP ONNEL CLERKS SUPERVISOR 09/14/2024 - 24w0d - Alvino Pelletier RN [...] questions. Pt verbalizes understanding. Alvino Pelletier RN ONNEL CLERKS SUPERVISOR Progress Notes - Office Visi t - [...] Specialized anatomic survey at 20 weeks (Order [id number]) - ordered [] Serial growth ultrasounds every [...] pills, patch, ring, injection, implant, IUD. [] Senior Planning Analyst: [] Car seat discussed [] PP depression [...] Specialized anatomic survey at 20 weeks (Order [id number]) - ordered [] Serial growth ultrasounds every [...] in 3 days if still symptomatic. Avoid Ludden until all medication complete. Avoid use of [...] pills, patch, ring, injection, implant, IUD. [] Senior Planning Analyst: [] Car seat discussed [] PP depression [...] Specialized anatomic survey at 20 weeks (Order [id number]) [] Serial growth ultrasounds every 4 weeks at 28 weeks [] 3rd trimester anesthesia consultation if BMI >/=50 [] Weekly testing BMI at IOB: 37.9 BMI 35.0-39.9 beginning at 37w0d BMI >40.0 beginning at 34w0d Genitourinary and Reproductive Yeast vaginitis Overview Rx Diflucan 150 mg take 1 tablet today, may repeat in 3 days if still symptomatic. Avoid Ludden until all medication complete. Avoid use of [...] pills, patch, ring, injection, implant, IUD. [] Senior Planning Analyst: [] Car seat discussed [] PP depression [...] 11w6d by LMP and BSUS @9w3d in [facility]. is desired. Patient already taking PNV. Requesting to switch antidepressants. Currently taking sertraline 25mg daily, which she has taken since she was 14yo, however does not like the way it is making her feel. Reports feeling emotionally numb and still depressed . Not currently doing therapy/counseling, but trying to get in with a new therapist, has previously been seen at [facility] in [place], [place]. She denies any SI/HI, however does [...] Khoa Dobbs Eileen Apgar1: 8 Apgar5: 9 MILL ATTENDANT History: Pap History: 2023 NILM STI History: Genetic History: [-] Mother's Age > 34 years [-] Sickle Cell Disease or Trait [-] Thalasemia (Yoruba, Occitan, Medit or ; MCV <80) [-] Jude Sachs Disease (Yarsanism, Cajun, Slovenian [place]) [-] Down's Syndrome [-] Neural Tube Defects (Meningomyelocele, Spina Bifida or Anencephaly) [-] Other Developmental Delay [-] Cystic Fibrosis [-] [place]'s Chorea [-] Muscular Dystrophy [-] Hemophilia [-] [...] ABORH O Positive 05/08/2024 IDCOOMB Negative 05/08/2024 [id number] Nonreactive 05/21/2024 LABRPR Nonreactive 05/21/2024 RUBELIGG Equivocal (A) 05/21/2024 HEPBSAG Nonreactive 05/21/2024 Transabdominal ultrasound early Indication: Confirm viability and dating Uterus: normal Single IUP @ 11w6d, dating previously established, L=1 in [facility] 06/04 FHM= 161bpm Impression: Viable IUP with [...] Specialized anatomic survey at 20 weeks (Order [id number]) [] Serial growth ultrasounds every 4 weeks [...] pills, patch, ring, injection, implant, IUD. [] Senior Planning Analyst: [] Car seat discussed [] PP depression [...] Rubella non-immune status, antepartum Overview -For PP [facility] Moderate episode of recurrent major [...] - Taniya Curry RN Pt arrived to [facility] at 9w3d complaining of passing bright red blood x one hour DOORSHAKER VSS and Reactive NST BUILDING DISMANTLER assessment. Urine dip WNL Pt signed out with Dr. Sánchez per Jonna Vega BUILDING DISMANTLER Discharge instructions given/verbalized understanding Discharged in stable [...] Patient is appropriate for follow up in BUILDING DISMANTLER clinic. Follow up in 3 weeks with [...] Respiratory Rate 19 01/05/2025 12:5 9 PM PERSONNEL CLERKS SUPERVISOR Oxygen Saturation 100% 02/03/2025 11: 04 AM CDT Inhaled Oxygen Concentration - - Weight 110.9 kg (244 lb 6.4 oz) 025 11:04 AM CDT Height 167.6 cm (5' 6 ) 12/22/2024 8:19 AM PERSONNEL CLERKS SUPERVISOR Body Mass Index 39.45 12/22/2024 8:19 AM PERSONNEL CLERKS SUPERVISOR Plan of Treatment Health Maintenance Due Date [...] test URINE CULTURE Routine 01/05/2025 4:28 PM PERSONNEL CLERKS SUPERVISOR Encounter for routine follow-up PROTEIN / CREATININE RATIO, URINE, RANDOM Routine 01/05/2025 3:06 PM PERSONNEL CLERKS SUPERVISOR Encounter for routine follow-up EGFR Routine 01/05/2025 1:49 PM PERSONNEL CLERKS SUPERVISOR Encounter for routine follow-up COMPREHENSIVE METABOLIC PANEL Routine 01/05/2025 1:49 PM PERSONNEL CLERKS SUPERVISOR Encounter for routine follow-up CBC WITHOUT DIFFERENTIAL Routine 01/05/2025 1:49 PM PERSONNEL CLERKS SUPERVISOR Encounter for routine follow-up ID AN PROCEDURE PLACEHOLDER Routine 12/22/2024 3:08 PM PERSONNEL CLERKS SUPERVISOR PROTEIN / CREATININE RATIO, URINE, RANDOM Routine 12/22/2024 10:04 AM PERSONNEL CLERKS SUPERVISOR EGFR STAT 12/22/2024 9:19 AM PERSONNEL CLERKS SUPERVISOR URIC ACID Routine 12/22/2024 9:19 AM PERSONNEL CLERKS SUPERVISOR COMPREHENSIVE METABOLIC PANEL STAT 12/22/2024 9:19 AM PERSONNEL CLERKS SUPERVISOR CBC WITHOUT DIFFERENTIAL STAT 12/22/2024 9:19 AM PERSONNEL CLERKS SUPERVISOR TYPE AND SCREEN STAT 12/22/2024 9:19 AM PERSONNEL CLERKS SUPERVISOR RPR STAT 12/22/2024 9:19 AM PERSONNEL CLERKS SUPERVISOR US OB LIMITED IP Routine 12/22/2024 8:59 AM PERSONNEL CLERKS SUPERVISOR Encounter for induction of labor URINE CULTURE STAT 12/17/2024 9:54 PM PERSONNEL CLERKS SUPERVISOR POCT URINALYSIS (CLINITEK) Routine 12/17/2024 9:45 PM PERSONNEL CLERKS SUPERVISOR EGFR STAT 12/12/2024 8:27 PM PERSONNEL CLERKS SUPERVISOR PROTEIN / CREATININE RATIO, URINE, RANDOM STAT 12/12/2024 8:27 PM PERSONNEL CLERKS SUPERVISOR COMPREHENSIVE METABOLIC PANEL STAT 12/12/2024 8:27 PM PERSONNEL CLERKS SUPERVISOR CBC WITHOUT DIFFERENTIAL STAT 12/12/2024 8:27 PM PERSONNEL CLERKS SUPERVISOR N. GONORRHOEAE/C. TRACHOMATIS AMPLIFICATION Routine 12/09/2024 2:28 PM PERSONNEL CLERKS SUPERVISOR , unspecified gestational age TRICHOMONAS VAGINALIS PCR Routine 12/09/2024 2:28 PM PERSONNEL CLERKS SUPERVISOR , unspecified gestational age TYPE AND SCREEN Routine 12/09/2024 11:38 AM PERSONNEL CLERKS SUPERVISOR , unspecified gestational age EGFR Routine 12/09/2024 11:35 AM PERSONNEL CLERKS SUPERVISOR Supervision of other normal , antepartum CBC WITHOUT DIFFERENTIAL Routine 12/09/2024 11:35 AM PERSONNEL CLERKS SUPERVISOR , unspecified gestational age COMPREHENSIVE METABOLIC PANEL Routine 12/09/2024 11:35 AM PERSONNEL CLERKS SUPERVISOR Supervision of other normal , antepartum HIV 1/2 ANTIBODY PLUS P24 ANTIGEN Routine 12/09/2024 11:35 AM PERSONNEL CLERKS SUPERVISOR , unspecified gestational age RPR Routine 12/09/2024 11:35 AM PERSONNEL CLERKS SUPERVISOR , unspecified gestational age GROUP B STREPTOCOCCUS CULTURE Routine 12/09/2024 11:09 AM PERSONNEL CLERKS SUPERVISOR OB FOLLOW UP Schedule Routine, Read Routine (OP Routine) 12/09/2024 10:28 AM PERSONNEL CLERKS SUPERVISOR Supervision of other normal , antepartum RESPIRATORY PATHOGEN PANEL Routine 11/30/2024 4:10 PM PERSONNEL CLERKS SUPERVISOR ECG 12-LEAD Routine 11/30/2024 3:59 PM PERSONNEL CLERKS SUPERVISOR POCT URINALYSIS (CLINITEK) Routine 11/30/2024 3:57 PM PERSONNEL CLERKS SUPERVISOR TRICHOMONAS VAGINALIS PCR STAT 11/23/2024 3:51 PM PERSONNEL CLERKS SUPERVISOR N. GONORRHOEAE/C. TRACHOMATIS AMPLIFICATION STAT 11/23/2024 3:51 PM PERSONNEL CLERKS SUPERVISOR EGFR STAT 11/23/2024 2:39 PM PERSONNEL CLERKS SUPERVISOR DIFFERENTIAL AUTO STAT 11/23/2024 2:3 9 PM PERSONNEL CLERKS SUPERVISOR PROTEIN / CREATININE RATIO, URINE, RANDOM STAT 11/23/2024 2:39 PM PERSONNEL CLERKS SUPERVISOR COMPREHENSIVE METABOLIC PANEL STAT 11/23/2024 2:39 PM PERSONNEL CLERKS SUPERVISOR CBC WITH AUTO DIFFERENTIAL STAT 11/23/2024 2:39 PM PERSONNEL CLERKS SUPERVISOR HEPATITIS C ANTIBODY Routine 05/21/2024 12:00 PM [...] culture Urine, clean voided (01/05/2025 4:28 PM PERSONNEL CLERKS SUPERVISOR) Pathologist [facility] Report Final Report: Less than 100,000 colonies/mL (clinically insignificant growth based on current clinical standards) Organism (CLINICALLY INSIGNIFICANT GROWTH [facility] Urine, clean voided 01/05/2025 4:28 PM PERSONNEL CLERKS SUPERVISOR 01/05/2025 5:06 PM PERSONNEL CLERKS SUPERVISOR Narrative [facility] - 01/06/2025 6:30 PM PERSONNEL CLERKS SUPERVISOR Testing performed by [facility] ([phone]) Noreen Rucker NP LAB MICROBIOLOGY - GENERAL ORDERABLES Final Result Performing Organization Address [facility] Co de Phone Number [facility] [place] [place] [address] * Protein / creatinine ratio, urine, random (01/05/2025 3:06 PM PERSONNEL CLERKS SUPERVISOR) [facility] Protein, ur, quant 13.6 mg/dL Comment: Interpretive Data No reference range established. Current interpretive data was last revised 2019. Creatinine Ur 95.0 mg/dL [facility] Comment: Interpretive Data No reference range established. Current interpretive data was last revised 2019. Protein/creatinin e ratio 143.2 0.0 - 180.0 mg/g CR [facility] Urine 01/05/2025 3:06 PM PERSONNEL CLERKS SUPERVISOR 01/05/2025 4:44 PM PERSONNEL CLERKS SUPERVISOR Noreen Rucker NP LAB URINE ORDERABLES Final Result Performing Organization Address City/[facility]/ZIP Co de Phone Number [facility] [place] [address] * eGFR (01/05/2025 1:49 PM PERSONNEL CLERKS SUPERVISOR) [facility] eGFR >90 >=60 mL/min/1. 73 m2 Comment: [...] last reviewed 2021. Blood 01/05/2025 1:49 PM PERSONNEL CLERKS SUPERVISOR 01/05/2025 2:47 PM PERSONNEL CLERKS SUPERVISOR Noreen Rucker NP LAB BLOOD ORDERABLES Final Result [facility] [place] [address] * (ABNORMAL) CBC without differential (01/05/2025 1:49 PM PERSONNEL CLERKS SUPERVISOR) WBC 11.3(H) 3.8 - 9.9 K/cumm Hgb 12.4 11.9 - 15.5 g/dL [facility] Hct 40.8 35.6 - 45.5 % [facility] Plt 434(H) 150 - 400 K/cumm [facility] MPV 10.3 9.1 - 12.3 fL [facility] RBC 5.44(H) 3.90 - 5.20 M/cumm [facility] MCV 75.0(L) 81.3 - 96.4 fL [facility] MCH 22.8(L) 27.1 - 33.3 pg [facility] MCHC 30.4(L) 32.3 - 35.7 g/dL [facility] RDW CV 14.8 11.1 - 14.9 % [facility] RDW SD 39.9 35.7 - 48.1 fL [facility] NRBC abs 0.00 0.00 - 0.01 K/cumm [facility] Blood 01/05/2025 1:49 PM PERSONNEL CLERKS SUPERVISOR 01/05/2025 2:47 PM PERSONNEL CLERKS SUPERVISOR Noreen Rucker BUILDING DISMANTLER LAB BLOOD ORDERABLES Final Result [facility] [place] [address] * (ABNORMAL) Comprehensive metabolic panel (01/05/2025 1:49 PM PERSONNEL CLERKS SUPERVISOR) Sodium 145 135 - 145 mmol/L Potassium, pl 4.1 3.3 - 4.9 mmol/L [facility] Chloride 106 97 - 110 mmol/L [facility] CO2 28 22 - 32 mmol/L [facility] Anion gap 11 2 - 15 mmol/L [facility] BUN 14 6 - 25 mg/dL [facility] Creatinine 0.76 0.60 - 1.10 mg/dL [facility] Glucose 88 70 - 199 mg/dL [facility] Comment: Interpretive Data Fasting glucose >/= 126 [...] 2022. Calcium 8.9 8.5 - 10.3 mg/dL [facility] Bilirubin, total <0.2 0.1 - 1.2 mg/dL [facility] Comment:Reviewed Protein, pl 7.0 6.5 - 8.5 g/dL [facility] Albumin 3.7 3.5 - 5.0 g/dL [facility] Alk phos 156(H) 40 - 130 Units/L [facility] ALT 36 7 - 45 Units/L [facility] Comment:Reviewed AST 34 10 - 45 Units/L [facility] Blood 01/05/2025 1:49 PM PERSONNEL CLERKS SUPERVISOR 01/05/2025 2:47 PM PERSONNEL CLERKS SUPERVISOR Noreen Ellienathan Rucker NP LAB BLOOD ORDERABLES Final Result [facility] [place] [address] * ID AN PROCEDURE PLACEHOLDER (12/22/2024 3:08 PM PERSONNEL CLERKS SUPERVISOR) Narrative Nhan Olivia CRNA - 12/22/2024 3:08 PM PERSONNEL CLERKS SUPERVISOR Nhan Olivia CRNA 12/22/2024 3:08 PM Epidural Block Patient location: L&D Reason for block: labor analgesia Staff: Supervising provider: Roger Rivas MD Placed by: ATHLETICS TEACHER: Nhan Olivia CRNA Procedure prep: Preprocedure checklist: [...] creatinine ratio, urine, random (12/22/2024 10:04 AM PERSONNEL CLERKS SUPERVISOR) Protein, ur, quant 32.9 mg/dL Comment: Interpretive Data No reference range established. Current interpretive data was last revised 2019. Creatinine Ur 180.3 mg/dL [facility] Comment: Interpretive Data No reference range established. Current interpretive data was last revised 2019. Protein/creatinin e ratio 182.5(H) 0.0 - 180.0 mg/g CR [facility] Urine 12/22/2024 10:0 4 AM PERSONNEL CLERKS SUPERVISOR 12/22/2024 10:16 AM PERSONNEL CLERKS SUPERVISOR us Alvino Angel [facility] LAB URINE ORDERABLES Final Result Performing Organization Address [facility]/ZIP Co de Phone Number [facility] Department [place] [address] * eGFR (12/22/2024 9:19 AM PERSONNEL CLERKS SUPERVISOR) eGFR >90 >=60 mL/min/1. 73 m2 Comment: [...] last reviewed 2021. Blood 12/22/2024 9:19 AM PERSONNEL CLERKS SUPERVISOR 12/22/2024 9:31 AM PERSONNEL CLERKS SUPERVISOR Alvino ROB LAB BLOOD ORDERABLES Final Result Performing Organization Address [facility]/ZIP Co de Phone Number [facility] [place] [address] * RPR Blood (12/22/2024 9:19 AM PERSONNEL CLERKS SUPERVISOR) [facility] RPR Nonreactive Nonreactive Blood 12/22/2024 9:19 AM PERSONNEL CLERKS SUPERVISOR 12/22/2024 9:31 AM PERSONNEL CLERKS SUPERVISOR Alvino ROB LAB MICROBIOLOGY - GENERAL ORDERABLES Final Result Performing Organization Address City/[facility] Co de Phone Number [facility] Department [place] [address] * (ABNORMAL) CBC without differential (12/22/2024 9:19 AM PERSONNEL CLERKS SUPERVISOR) [facility] WBC 10.3(H) 3.8 - 9.9 K/cumm Hgb 10.8(L) 11.9 - 15.5 g/dL [facility] Hct 33.8(L) 35.6 - 45.5 % [facility] Plt 402(H) 150 - 400 K/cumm [facility] MPV 10.3 9.1 - 12.3 fL [facility] RBC 4.55 3.90 - 5.20 M/cumm [facility] MCV 74.3(L) 81.3 - 96.4 fL [facility] MCH 23.7(L) 27.1 - 33.3 pg [facility] MCHC 32.0(L) 32.3 - 35.7 g/dL [facility] RDW CV 14.5 11.1 - 14.9 % [facility] RDW SD 38.5 35.7 - 48.1 fL [facility] NRBC abs 0.00 0.00 - 0.01 K/cumm [facility] Blood 12/22/2024 9:19 AM PERSONNEL CLERKS SUPERVISOR 12/22/2024 9:31 AM PERSONNEL CLERKS SUPERVISOR Alvino Angel CNM LAB BLOOD ORDERABLES Final Result Performing Organization Address City/[facility]/ZIP Co de Phone Number [facility] [place] [address] * Type and screen (12/22/2024 9:19 AM PERSONNEL CLERKS SUPERVISOR) [facility] ABO Rh O Positive Nitin, indirect Negative [facility] Blood 12/22/2024 9:19 AM PERSONNEL CLERKS SUPERVISOR 12/22/2024 9:39 AM PERSONNEL CLERKS SUPERVISOR Narrative [facility] - 12/22/2024 10:36 AM PERSONNEL CLERKS SUPERVISOR Has the patient had Daratumumab or Isatuximab in the past 6 months?->Unknown Alvino ROB LAB BLOOD BANK TEST ORDERAB LES Final Result [facility] [place] [address] * Uric acid (12/22/2024 9:19 AM PERSONNEL CLERKS SUPERVISOR) [facility] Uric acid 4.8 2.5 - 7.0 mg/dL Blood 12/22/2024 9:19 AM PERSONNEL CLERKS SUPERVISOR 12/22/2024 9:31 AM PERSONNEL CLERKS SUPERVISOR Alvino Angel [facility] LAB BLOOD ORDERABLES Final Result [facility] Department [place] [address] * (ABNORMAL) Comprehensive metabolic panel (12/22/2024 9:19 AM PERSONNEL CLERKS SUPERVISOR) [facility] Sodium 141 135 - 145 mmol/L Potassium, pl 3.8 3.3 - 4.9 mmol/L [facility] Chloride 107 97 - 110 mmol/L [facility] CO2 24 22 - 32 mmol/L [facility] Anion gap 10 2 - 15 mmol/L [facility] BUN 6 6 - 25 mg/dL [facility] Creatinine 0.58(L) 0.60 - 1.10 mg/dL [facility] Glucose 89 70 - 199 mg/dL [facility] Comment: Interpretive Data Fasting glucose >/= 126 [...] Calcium 9.0 8.5 - 10.3 mg/dL [facility] Bilirubin, total 0.2 0.1 - 1.2 mg/dL [facility] Protein, pl 6.8 6.5 - 8.5 g/dL [facility] Albumin 3.3(L) 3.5 - 5.0 g/dL [facility] Alk phos 196(H) 40 - 130 Units/L [facility] ALT 9 7 - 45 Units/L [facility] AST 14 10 - 45 Units/L [facility] Blood 12/22/2024 9:19 AM PERSONNEL CLERKS SUPERVISOR 12/22/2024 9:31 AM PERSONNEL CLERKS SUPERVISOR us Alvino Angel [facility] LAB BLOOD ORDERABLES Final Result [facility] [place] [address] * US Ob Limited (12/22/2024 8:59 AM PERSONNEL CLERKS SUPERVISOR) Anatomical Region Laterality Modality Abdomen N/A Ultrasound Narrative 12/22/2024 8:59 AM PERSONNEL CLERKS SUPERVISOR Vertex I have reviewed the images and agree with above. Tanvir Beatty MD us Tanvir Beatty MD IMG OB US PROCEDURES Final Result * Urine culture Urine, clean voided (12/17/2024 9:54 PM PERSONNEL CLERKS SUPERVISOR) Report Final Report: Less than 100,000 colonies/mL (clinically insignificant growth based on current clinical standards) Organism (CLINICALLY INSIGNIFICANT GROWTH [facility] Urine, clean voided 12/17/2024 9:54 PM PERSONNEL CLERKS SUPERVISOR 12/17/2024 10:02 PM PERSONNEL CLERKS SUPERVISOR Narrative [facility] - 12/19/2024 10:26 AM PERSONNEL CLERKS SUPERVISOR Indications for Culture:-> patient Specimen received in a sterile container. Testing performed by [facility] ([phone]) us Aidan Osullivan BUILDING DISMANTLER LAB MICROBIOLOGY - GENER AL ORDERABLES Final Result [facility] [place] [address] * (ABNORMAL) POCT urinalysis (Clinitek) (12/17/2024 9:45 PM PERSONNEL CLERKS SUPERVISOR) Color, ur, POC Yellow Yellow Clarity, UA, POC Clear Clear [facility] Glucose, ur, POC Negative Negative [facility] Bilirubin, ur, POC Negative Negative [facility] Ketones, ur, POC Negative Negative [facility] Specific gravity, ur, POC 1.015 1.010 - 1.025 [facility] Blood, ur, POC Negative Negative [facility] pH, ur, POC 7.0 [facility] Comment: Interpretive Data Urine pH is affected by diet, medications, systemic acid-base disturbances, and renal tubular function. pH may affect urinary stone formation. For example, urine pH below 6.0 may help reduce the tendency for calcium phosphate stones and pH greater than 6.0 may reduce the tendency for uric acid stone formation. Source: [place] [employer]. Last Revised Date: 11-13-2017 Protein, ur, POC Negative Negative [facility] Urobilinogen, ur, POC 0.2 mg/dL mg/dL [facility] Nitrites, ur, POC Negative Negative [facility] Leukocyte esterase, ur, POC 1+(A) Negative [facility] Urine 12/17/2024 9:45 PM PERSONNEL CLERKS SUPERVISOR 12/17/2024 9:45 PM PERSONNEL CLERKS SUPERVISOR us Antonio Funez MD LAB POCT ORDERABLES - DEV ICE Final Result Performing Organization Address [facility]/[place] Co de Phone Number [facility] Department [place] [address] * eGFR (12/12/2024 8:27 PM PERSONNEL CLERKS SUPERVISOR) Pathologist [facility] eGFR >90 >=60 mL/min/1. 73 m2 Comment: [...] last reviewed 2021. Blood 12/12/2024 8:27 PM PERSONNEL CLERKS SUPERVISOR 12/12/2024 8:46 PM PERSONNEL CLERKS SUPERVISOR Venecia You MD LAB BLOOD ORDERABLES F inal Result Performing Organization Address [facility] Co de Phone Number [facility] [place] [address] * Protein / creatinine ratio, urine, random (12/12/2024 8:27 PM PERSONNEL CLERKS SUPERVISOR) Pathologist [facility] Protein, ur, quant <5.0 mg/dL Comment: Interpretive Data No reference range established. Current interpretive data was last revised 2019. Creatinine Ur 36.0 mg/dL [facility] Comment: Interpretive Data No reference range established. Current interpretive data was last revised 2019. Protein/creatinin e ratio <138.9 0.0 - 180.0 mg/g CR [facility] Urine 12/12/2024 8:27 PM PERSONNEL CLERKS SUPERVISOR 12/12/2024 8:46 PM PERSONNEL CLERKS SUPERVISOR Venecia You MD LAB URINE ORDERABLES F inal Result Performing Organization Address [facility] de Phone Number [facility] [place] [place] [address] * (ABNORMAL) CBC without differential (12/12/2024 8:27 PM PERSONNEL CLERKS SUPERVISOR) Pathologist [facility] WBC 10.4(H) 3.8 - 9.9 K/cumm Hgb 10.8(L) 11.9 - 15.5 g/dL [facility] Hct 33.5(L) 35.6 - 45.5 % [facility] Plt 376 150 - 400 K/cumm [facility] MPV 10.1 9.1 - 12.3 fL [facility] RBC 4.55 3.90 - 5.20 M/cumm [facility] MCV 73.6(L) 81.3 - 96.4 fL [facility] MCH 23.7(L) 27.1 - 33.3 pg [facility] MCHC 32.2(L) 32.3 - 35.7 g/dL [facility] RDW CV 14.2 11.1 - 14.9 % [facility] RDW SD 37.8 35.7 - 48.1 fL [facility] NRBC abs 0.00 0.00 - 0.01 K/cumm [facility] Blood 12/12/2024 8:27 PM PERSONNEL CLERKS SUPERVISOR 12/12/2024 8:48 PM PERSONNEL CLERKS SUPERVISOR Venecia You MD LAB BLOOD ORDERABLES F inal Result Performing Organization Address [facility] Co de Phone Number [facility] Department [place] [address] * (ABNORMAL) Comprehensive metabolic panel (12/12/2024 8:27 PM PERSONNEL CLERKS SUPERVISOR) Sodium 144 135 - 145 mmol/L Potassium, pl 3.7 3.3 - 4.9 mmol/L [facility] Chloride 109 97 - 110 mmol/L [facility] CO2 25 22 - 32 mmol/L [facility] Anion gap 10 2 - 15 mmol/L [facility] BUN 4(L) 6 - 25 mg/dL [facility] Creatinine 0.63 0.60 - 1.10 mg/dL [facility] Glucose 85 70 - 199 mg/dL [facility] Comment: Interpretive Data Fasting glucose >/= 126 [...] 2022. Calcium 8.9 8.5 - 10.3 mg/dL [facility] Bilirubin, total 0.2 0.1 - 1.2 mg/dL [facility] Protein, pl 6.5 6.5 - 8.5 g/dL [facility] Albumin 3.2(L) 3.5 - 5.0 g/dL [facility] Alk phos 175(H) 40 - 130 Units/L [facility] ALT 7 7 - 45 Units/L [facility] AST 11 10 - 45 Units/L [facility] Blood 12/12/2024 8:27 PM PERSONNEL CLERKS SUPERVISOR 12/12/2024 8:46 PM PERSONNEL CLERKS SUPERVISOR us Venecia You MD LAB BLOOD ORDERABLES F inal Result [facility] [place] [address] * N. gonorrhoeae/C. trachomatis Amplification Vaginal (12/09/2024 2:28 PM PERSONNEL CLERKS SUPERVISOR) C. trachomatis Not Detected [facility] N. gonorrhoeae Not Detected [facility] Comment: Interpretive Data This assay detects Chlamydia trachomatis and Neisseria gonorrhoeae by nucleic acid amplification testing (NAAT). This assay has been cleared by the [place] Food and Drug administration. The performance characteristics of this test have been verified by the [facility] Molecular Infectious Disease laboratory. The performance characteristics of this test have not been evaluated in individuals less than 14 years of age. Current Interpretive Data was last revised on 2023. Vaginal (None) 12/09/2024 2: 28 PM PERSONNEL CLERKS SUPERVISOR 12/09/2024 2:34 PM PERSONNEL CLERKS SUPERVISOR Noreen Rucker NP LAB MICROBIOLOGY - GENERAL ORDERABLES Final Result Performing Organization Address [facility] de Phone Number [facility] [place] [address] [facility] * Trichomonas vaginalis PCR Vaginal (12/09/2024 2:28 PM PERSONNEL CLERKS SUPERVISOR) Pathologist [facility] Trichomonas DNA Not Detected [facility] Comment: Interpretive Data This assay detects Trichomonas vaginalis by nucleic acid amplification testing (NAAT). This assay has been cleared by the [place] Food and Drug administration. The performance characteristics of this test have been verified by the [facility]ious Disease laboratory. The performance of this test has not been evaluated in individuals less than 18 years of age. Current Interpretive Data was last revised on 2023. Vaginal 12/09/2024 2:28 PM PERSONNEL CLERKS SUPERVISOR 12/09/2024 2:34 PM PERSONNEL CLERKS SUPERVISOR Noreen Rucker NP LAB MICROBIOLOGY - GENERAL ORDERABLES Final Result Performing Organization Address City/[facility]/[place] [address] [facility] * Type and screen (12/09/2024 11:38 AM PERSONNEL CLERKS SUPERVISOR) Nitin, indirect Negative ABO Rh O Positive [facility] Blood 12/09/2024 11:3 8 AM PERSONNEL CLERKS SUPERVISOR 12/09/2024 12:42 PM PERSONNEL CLERKS SUPERVISOR Narrative [facility] - 12/09/2024 1:47 PM PERSONNEL CLERKS SUPERVISOR Has the patient had Daratumumab or Isatuximab in the past 6 months?->Unknown Noreen Rucker NP LAB BLOOD BANK TEST ORDERAB LES Final Result [facility] [place] [address] * eGFR (12/09/2024 11:35 AM PERSONNEL CLERKS SUPERVISOR) Pathologist [facility] eGFR >90 >=60 mL/min/1. 73 m2 Comment: [...] reviewed 2021. Blood 12/09/2024 11:3 5 AM PERSONNEL CLERKS SUPERVISOR 12/09/2024 12:19 PM PERSONNEL CLERKS SUPERVISOR Noreen Rucker NP LAB BLOOD ORDERABLES Final Result Performing Organization Address City/[facility]/ZIP Co de Phone Number [facility] [place] [address] * HIV 1/2 Antibody plus p24 Antigen Blood (12/09/2024 11:35 AM PERSONNEL CLERKS SUPERVISOR) [facility] HIV 1/2 ab + p24 ag Nonreactive Nonreactive Comment:Nonreactive for HIV- 1 antigen and HIV-1/HIV-2 antibodies. No laboratory evidence of HIV infection. If acute HIV infection is suspected, consider testing for HIV-1 RNA. Current interpretive data was last revised on 22. Blood 12/09/2024 11:3 5 AM PERSONNEL CLERKS SUPERVISOR 12/09/2024 12:19 PM PERSONNEL CLERKS SUPERVISOR Noreen Rucker NP LAB MICROBIOLOGY - GENERAL ORDERABLES Final Result Performing Organization Address [facility]/[place] [address] * RPR Blood (12/09/2024 11:35 AM PERSONNEL CLERKS SUPERVISOR) [facility] RPR Nonreactive Nonreactive Blood 12/09/2024 11:3 5 AM PERSONNEL CLERKS SUPERVISOR 12/09/2024 12:20 PM PERSONNEL CLERKS SUPERVISOR Noreen Rucker NP LAB MICROBIOLOGY - GENERAL ORDERABLES Final Result Performing Organization Address City/[facility] [place] [address] * (ABNORMAL) CBC without differential (12/09/2024 11:35 AM PERSONNEL CLERKS SUPERVISOR) [facility] WBC 10.8(H) 3.8 - 9.9 K/cumm Hgb 11.2(L) 11.9 - 15.5 g/dL [facility] Hct 36.4 35.6 - 45.5 % [facility] Plt 394 150 - 400 K/cumm [facility] MPV 10.2 9.1 - 12.3 fL [facility] RBC 4.66 3.90 - 5.20 M/cumm [facility] MCV 78.1(L) 81.3 - 96.4 fL [facility] MCH 24.0(L) 27.1 - 33.3 pg [facility] MCHC 30.8(L) 32.3 - 35.7 g/dL [facility] RDW CV 14.4 11.1 - 14.9 % [facility] RDW SD 40.3 35.7 - 48.1 fL [facility] NRBC abs 0.00 0.00 - 0.01 K/cumm [facility] Blood 12/09/2024 11:3 5 AM PERSONNEL CLERKS SUPERVISOR 12/09/2024 12:20 PM PERSONNEL CLERKS SUPERVISOR us Noreen Rucker NP LAB BLOOD ORDERABLES Final Result [facility] [place] [address] * (ABNORMAL) Comprehensive metabolic panel (12/09/2024 11:35 AM PERSONNEL CLERKS SUPERVISOR) Sodium 139 135 - 145 mmol/L Potassium, pl 3.8 3.3 - 4.9 mmol/L [facility] Chloride 107 97 - 110 mmol/L [facility] CO2 23 22 - 32 mmol/L [facility] Anion gap 9 2 - 15 mmol/L [facility] BUN 4(L) 6 - 25 mg/dL [facility] Creatinine 0.54(L) 0.60 - 1.10 mg/dL [facility] Glucose 89 70 - 199 mg/dL [facility] Comment: Interpretive Data Fasting glucose >/= 126 [...] 2022. Calcium 9.0 8.5 - 10.3 mg/dL [facility] Bilirubin, total 0.2 0.1 - 1.2 mg/dL [facility] Protein, pl 6.8 6.5 - 8.5 g/dL [facility] Albumin 3.2(L) 3.5 - 5.0 g/dL [facility] Alk phos 179(H) 40 - 130 Units/L [facility] ALT 9 7 - 45 Units/L [facility] AST 16 10 - 45 Units/L [facility] Blood 12/09/2024 11:3 5 AM PERSONNEL CLERKS SUPERVISOR 12/09/2024 12:19 PM PERSONNEL CLERKS SUPERVISOR Noreen Rucker NP LAB BLOOD ORDERABLES Final Result Performing Organization Address [facility] Co de Phone Number [facility] [place] [address] * (ABNORMAL) Group B streptococcal culture Vaginal/Rectal (12/09/2024 11:09 AM PERSONNEL CLERKS SUPERVISOR) Report Amended Report - Complete: Streptococcus agalactiae (Group B Streptococci) (.) Organism STREPTOCOCCUS AGALACTIAE (GROUP B STREPTOCOCCI) [facility] Vaginal/Rectal 12/09/2024 11 :09 AM PERSONNEL CLERKS SUPERVISOR 12/09/2024 2:29 PM PERSONNEL CLERKS SUPERVISOR Narrative [facility] - 12/19/2024 10:57 AM PERSONNEL CLERKS SUPERVISOR Testing performed by [facility] ([phone]). Organism Antibiotic Method Susceptibility Streptococcus agalactiae (Gr [...] Edited Result - Final Performing Organization Address [facility] [facility]/ZIP Co de Phone Number [facility] [place] [address] * US Ob Follow Up (12/09/2024 10:28 AM PERSONNEL CLERKS SUPERVISOR) Pathologist [facility] Fetus# [id number] [place] Estimated Weight 3,075 g&grams [place] Placenta Details anterior, Previa-no, no placental masses [place] Presentation Transverse Lie [place] Anatomical Region Laterality Modality Abdomen N/A Ultrasound 12/09/2024 10:3 5 AM PERSONNEL CLERKS SUPERVISOR Impressions 12/09/2024 11:06 AM PERSONNEL CLERKS SUPERVISOR [place] IUP at 36w 2d who presents [...] amniotic fluid volume is normal. Noreen Rucker BUILDING DISMANTLER IMG OB US PROCEDURES Final Result * Respiratory pathogen panel Nasopharyngeal (11/30/2024 4:10 PM PERSONNEL CLERKS SUPERVISOR) [facility] Influenza A RNA Not Detected Not Detected Influenza B RNA Not Detected Not Detected [facility] RSV RNA Not Detected Not Detected [facility] COVID-19 RNA Not Detected Not Detected [facility] Coronavirus 229E RNA Not Detected Not Detected [facility] Coronavirus HKU1 RNA Not Detected Not Detected [facility] Coronavirus NL63 RNA Not Detected Not Detected [facility] Coronavirus OC43 RNA Not Detected Not Detected [facility] Adenovirus DNA Not Detected Not Detected [facility] Metapneumovirus RNA Not Detected Not Detected [facility] Rhinovirus/Enterov irus RNA Not Detected Not Detected [facility] Parainfluenza 1 RNA Not Detected Not Detected [facility] Parainfluenza 2 RNA Not Detected Not Detected [facility] Parainfluenza 3 RNA Not Detected Not Detected [facility] Parainfluenza 4 RNA Not Detected Not Detected [facility] B. pertussis DNA Not Detected Not Detected [facility] B. parapertussis DNA Not Detected Not Detected [facility] C. pneumoniae DNA Not Detected Not Detected [facility] M. pneumoniae DNA Not Detected Not Detected [facility] Nasopharyngeal 11/30/2024 4: 10 PM PERSONNEL CLERKS SUPERVISOR 11/30/2024 4:23 PM PERSONNEL CLERKS SUPERVISOR Narrative [facility] - 11/30/2024 6:07 PM PERSONNEL CLERKS SUPERVISOR Is the Patient experiencing symptoms consistent with COVID?->Yes Surveillance testing for transplant patient?->No Interpretive Data The [employer] FilmArray Respiratory Panel (RP2.1) assay is a [...] assay has FDA clearance for testing of BUILDING DISMANTLER swabs. The performance of additional specimen types has been assessed by the performing laboratory. The performance characteristics of this assay have been determined by [facility] Molecular Infectious Disease Laboratory. Current interpretive data was last revised on 22. Mary Anne Vega BUILDING DISMANTLER LAB MICROBIOLOGY - GENER AL ORDERABLES Final Result [facility] Department [place] [address] * ECG 12 lead (11/30/2024 3:59 PM PERSONNEL CLERKS SUPERVISOR) Pathologist [facility] Ventricular Rate EKG/Min 79 BPM [facility] Atrial Rate 79 BPM [facility] ID-Interval (MSEC) 158 ms [facility] QRS-Interval (MSEC) 92 ms [facility] QT-Interval (MSEC) 354 ms [facility] QTc 405 ms [facility] P Clark 47 degrees [facility] R Clark 46 degrees [facility] T Clark 24 degrees [facility] Diagnosis Normal sinus rhythm Normal ECG When compared with ECG of 21-JUL-2023 11:06, No significant change was found Confirmed by MARGARITO GASCA M.D ([id number]) on 12/01/2024 8:43:46 AM [facility] 11/30/2024 3:59 PM PERSONNEL CLERKS SUPERVISOR 12/01/2024 8:43 AM PERSONNEL CLERKS SUPERVISOR Mary Anne Vega BUILDING DISMANTLER ECG ORDERABLES Final Re sult [facility] * (ABNORMAL) POCT urinalysis (Clinitek) (11/30/2024 3:57 PM PERSONNEL CLERKS SUPERVISOR) Color, ur, POC Yellow Yellow Clarity, UA, POC Clear Clear [facility] Glucose, ur, POC Negative Negative [facility] Bilirubin, ur, POC Negative Negative [facility] Ketones, ur, POC Negative Negative [facility] Specific gravity, ur, POC 1.015 1.010 - 1.025 [facility] Blood, ur, POC Negative Negative [facility] pH, ur, POC 6.0 [facility] Comment: Interpretive Data Urine pH is affected by diet, medications, systemic acid-base disturbances, and renal tubular function. pH may affect urinary stone formation. For example, urine pH below 6.0 may help reduce the tendency for calcium phosphate stones and pH greater than 6.0 may reduce the tendency for uric acid stone formation. Source: [employer]. Last Revised Date: 11-13-2017 Protein, ur, POC Negative Negative [facility] Urobilinogen, ur, POC 0.2 mg/dL mg/dL [facility] Nitrites, ur, POC Negative Negative [facility] Leukocyte esterase, ur, POC 2+(A) Negative [facility] Urine 11/30/2024 3:57 PM PERSONNEL CLERKS SUPERVISOR 11/30/2024 3:57 PM PERSONNEL CLERKS SUPERVISOR us Adrianna Lord MD LAB POCT ORDERABLES - DE VICE Final Result [facility] [place] [address] * N. gonorrhoeae/C. trachomatis Amplification Urine (11/23/2024 3:51 PM PERSONNEL CLERKS SUPERVISOR) C. trachomatis Not Detected Not Detected [facility] N. gonorrhoeae Not Detected Not Detected [facility] Comment: Interpretive Data This assay detects Chlamydia trachomatis and Neisseria gonorrhoeae by nucleic acid amplification testing (NAAT). This assay has been cleared by the [place] Food and Drug administration. The performance characteristics of this test have been verified by the [facility] Molecular Infectious Disease laboratory. The performance characteristics of this test have not been evaluated in individuals less than 14 years of age. Current Interpretive Data last revised 2023. Urine (None) 11/23/2024 3:51 PM PERSONNEL CLERKS SUPERVISOR 11/23/2024 4:44 PM PERSONNEL CLERKS SUPERVISOR Pam Judge NP LAB MICROBIOLOGY - GENERAL ORDERABLES Final Result Performing Organization Address [facility] Co de Phone Number [facility] [place] [address] [facility] * Trichomonas vaginalis PCR Urine (11/23/2024 3:51 PM PERSONNEL CLERKS SUPERVISOR) Pathologist [facility] Trichomonas DNA Not Detected Not Detected [facility] Comment: Interpretive Data This assay detects Trichomonas vaginalis by nucleic acid amplification testing (NAAT). This assay has been cleared by the [place] Food and Drug administration. The performance characteristics of this test have been verified by the [facility] Molecular Infectious Disease laboratory. Excess blood in specimens may be inhibitory and result in false negative results. The performance of this test has not been evaluated in women or individuals less than 18 years of age. Current Interpretive Data last revised 2023. Urine 11/23/2024 3:51 PM PERSONNEL CLERKS SUPERVISOR 11/23/2024 4:44 PM PERSONNEL CLERKS SUPERVISOR Pam Judge NP LAB MICROBIOLOGY - GENERAL ORDERABLES Final Result Performing Organization Address [facility] de Phone Number [facility] [place] [address] [facility] * eGFR (11/23/2024 2:39 PM PERSONNEL CLERKS SUPERVISOR) Pathologist [facility] eGFR >90 >=60 mL/min/1. 73 m2 Comment: [...] last reviewed 2021. Blood 11/23/2024 2:39 PM PERSONNEL CLERKS SUPERVISOR 11/23/2024 2:55 PM PERSONNEL CLERKS SUPERVISOR us Pam Judge NP LAB BLOOD ORDERABL ES Final Result [facility] [place] [address] * (ABNORMAL) Differential, auto (11/23/2024 2:39 PM PERSONNEL CLERKS SUPERVISOR) Neutrophil abs 8.9(H) 1.5 - 6.5 K/cumm Imm gran abs 0.1 0.0 - 0.1 K/cumm [facility] Lymphocyte abs 2.1 0.8 - 3.3 K/cumm [facility] Monocyte abs 0.6 0.2 - 0.8 K/cumm [facility] Eosinophil abs 0.1 0.0 - 0.5 K/cumm [facility] Basophil abs 0.1 0.0 - 0.1 K/cumm [facility] Neutrophil pct 74.9 % [facility] Comment: Interpretive Data Percent cell count reference ranges are not reported, since discordance with absolute values may lead to misinterpretation of CBC data. Current Interpretive Data was last revised on 2018. Imm gran pct 0.5 % [facility] Comment: Interpretive Data Percent cell count reference ranges are not reported, since discordance with absolute values may lead to misinterpretation of CBC data. Current Interpretive Data was last revised on 2018. Lymphocyte pct 18.0 % [facility] Comment: Interpretive Data Percent cell count reference ranges are not reported, since discordance with absolute values may lead to misinterpretation of CBC data. Current Interpretive Data was last revised on 2018. Monocyte pct 5.4 % [facility] Comment: Interpretive Data Percent cell count reference ranges are not reported, since discordance with absolute values may lead to misinterpretation of CBC data. Current Interpretive Data was last revised on 2018. Eosinophil pct 0.8 % [facility] Comment: Interpretive Data Percent cell count reference ranges are not reported, since discordance with absolute values may lead to misinterpretation of CBC data. Current Interpretive Data was last revised on 2018. Basophil pct 0.4 % [facility] Comment: Interpretive Data Percent cell count reference ranges are not reported, since discordance with absolute values may lead to misinterpretation of CBC data. Current Interpretive Data was last revised on 2018. Blood 11/23/2024 2:39 PM PERSONNEL CLERKS SUPERVISOR 11/23/2024 2:55 PM PERSONNEL CLERKS SUPERVISOR Pam Judge NP LAB BLOOD ORDERABL ES Final Result [facility] [place] [address] * (ABNORMAL) CBC with auto differential (11/23/2024 2:39 PM PERSONNEL CLERKS SUPERVISOR) WBC 11.9(H) 3.8 - 9.9 K/cumm Hgb 11.3(L) 11.9 - 15.5 g/dL [facility] Hct 35.0(L) 35.6 - 45.5 % [facility] Plt 380 150 - 400 K/cumm [facility] MPV 9.8 9.1 - 12.3 fL [facility] RBC 4.44 3.90 - 5.20 M/cumm [facility] MCV 78.8(L) 81.3 - 96.4 fL [facility] MCH 25.5(L) 27.1 - 33.3 pg [facility] MCHC 32.3 32.3 - 35.7 g/dL [facility] RDW CV 13.6 11.1 - 14.9 % [facility] RDW SD 38.8 35.7 - 48.1 fL [facility] NRBC abs 0.00 0.00 - 0.01 K/cumm [facility] Blood 11/23/2024 2:39 PM PERSONNEL CLERKS SUPERVISOR 11/23/2024 2:55 PM PERSONNEL CLERKS SUPERVISOR Pam Judge NP LAB BLOOD ORDERABL ES Final Result Performing Organization Address [facility] de Phone Number [facility] [place] [address] * Protein / creatinine ratio, urine, random (11/23/2024 2:39 PM PERSONNEL CLERKS SUPERVISOR) [facility] Protein, ur, quant <5.0 mg/dL Comment: Interpretive Data No reference range established. Current interpretive data was last revised 2019. Creatinine Ur 26.0 mg/dL [facility] Comment: Interpretive Data No reference range established. Current interpretive data was last revised 2019. Protein/creatini ne ratio See Comment 0.0 - 180.0 mg/g CR [facility] Comment:Unable to Calculate Urine 11/23/2024 2:39 PM PERSONNEL CLERKS SUPERVISOR 11/23/2024 3:02 PM PERSONNEL CLERKS SUPERVISOR Pam Judge NP LAB URINE ORDERABL ES Final Result Performing Organization Address [facility] de Phone Number [facility] [place] [address] * (ABNORMAL) Comprehensive metabolic panel (11/23/2024 2:39 PM PERSONNEL CLERKS SUPERVISOR) [facility] Sodium 138 135 - 145 mmol/L Potassium, pl 3.8 3.3 - 4.9 mmol/L [facility] Chloride 106 97 - 110 mmol/L [facility] CO2 23 22 - 32 mmol/L [facility] Anion gap 9 2 - 15 mmol/L [facility] BUN 4(L) 6 - 25 mg/dL [facility] Creatinine 0.47(L) 0.60 - 1.10 mg/dL [facility] Glucose 83 70 - 199 mg/dL [facility] Comment: Interpretive Data Fasting glucose >/= 126 [...] 2022. Calcium 8.6 8.5 - 10.3 mg/dL [facility] Bilirubin, total 0.2 0.1 - 1.2 mg/dL [facility] Protein, pl 6.7 6.5 - 8.5 g/dL [facility] Albumin 3.3(L) 3.5 - 5.0 g/dL [facility] Alk phos 148(H) 40 - 130 Units/L [facility] ALT 8 7 - 45 Units/L [facility] AST 16 10 - 45 Units/L [facility] Blood 11/23/2024 2:39 PM PERSONNEL CLERKS SUPERVISOR 11/23/2024 2:55 PM PERSONNEL CLERKS SUPERVISOR Pam Judge NP LAB BLOOD ORDERABL ES Final Result [facility] [place] [address] * Hepatitis C antibody Blood (05/21/2024 12:00 PM CDT) Hep C Ab Nonreactive Nonreactive Comment:Antibodies to HCV no t detected. Does NOT exclude the possibility of recent exposure to HCV. Current interpretive data was last revised on 22 Blood 05/21/2024 12:0 0 PM CDT 05/21/2024 12:14 PM CDT us Melanie Martinez Juan Pablo BUILDING DISMANTLER LAB MICROB IOLOGY - GENERAL ORDERABLES Edited Result - Final [facility] [place] [address] * Pap Only (Cytology Component) (01/30/2024 11:27 AM CDT) Thin prep (Pap test) 01/30/2024 11:27 AM CDT 01/30/2024 2:16 PM CDT Narrative PATHOLOGY [facility] - 02/06/2024 1:57 PM CDT EPIC results best viewed via link to PDF [facility] [place] [address] Note to Patients: This report may contain [...] Gender: F : 2000 (Age: 23) Address: [address] [place], [place] [id number] [facility] #: [id number] Service: MILL ATTENDANT Location: Patient Type: [facility] SPECIMEN Taken: 01/30/2024 Received: 01/30/2024 Accessioned: [...] clinical information and biopsy results as indicated. [facility] Clinical Laboratory Improvement Amendments (CLIA) mandate that cytologic and histologic results be correlated for laboratory quality assurance intern & improvement standards. FOR ALL HIGH-GRADE CASES [...] determined by the Surgical Pathology Department at [facility] as part of an ongoing quality control systems manager program and in compliance with federally [...] determined by the Surgical Pathology Department of [facility]. It has not been cleared or approved by the [place]. S. Food and Drug Administration. Noreen Rucker NP LAB CYTOLOGY ORDERABLES [facility] al Result PATHOLOGY [facility] [address]rd Floor [place], [place] [phone] from Last 3 Months or Most Recently Relevant to Health Maintenance Insurance [facility] Member Subscriber Plan / Payer (Ef fective 2022-Present) Name:Isabella Waldron Relation to Subscriber:Self Name:Isabella Waldron Payer ID:[id number] (NAIC) Group ID:Not on file Type:MEDICAID RISK OTHER Address: ATTN: CLAIMS DEPT [address] [place] [address] [facility] Advance Directives For more information, please contact: [phone] * Full Code (Latest Code Status on [...] in case of cardiopulmonary arrest Care Teams Customer Experience Strategist Relationship Specialty Start Date End Date Rhianna Chino MD [address] [place] [address] PCP - General Obstetrics and Gynecology 09/03/24
--- OUTSIDE RECORDS SUMMARY | 2025-02-16 18:28 | XMS_ITS | Referral Summary ---
Author Organization [facility] Address [address] [place] [address] Care Team Providers Care Pupil Personnel Worker Name Role Phone Rhianna Chino MD Primary Care Provider [phone] Encounters Date Type Department Care Team Description 02/03/2025 10:45 AM CDT Office Visit [facility] [address] [place] [address] [address] [place] [phone] Noreen Rucker NP Negative test (Primary Dx); Encounter for routine follow-up 02/02/2025 Telephone [facility] [address] [place] [address] [place] [phone] Kwame Marcus RN 01/07/2025 Orders Only [facility] [address] [place] [address] [address] [place] [phone] Noreen Rucker NP 01/05/2025 3:06 PM MANAGER AMBULATORY - 01/05/2025 11:59 PM MANAGER AMBULATORY Hospital Encounter [facility] [address] [place], [place] [phone] Encounter for routine follow-up Discharge Disposition: Discharge to home or self care 01/05/2025 1:00 PM MANAGER AMBULATORY Office Visit [facility] [address] [place] [address] [address] [place] [phone] Noreen Rucker NP Encounter for routine follow-up (Primary Dx) 01/04/2025 Telephone [facility] [address] [place] [address] 3rd Floor [address] [place] [phone] Christina Gan RN 12/27/2024 10:17 PM MANAGER AMBULATORY - 12/28/2024 12:01 AM MANAGER AMBULATORY Hospital Encounter [address] [phone] Eleno Tyler MD Discharge Disposition: Discharge to home or self care 12/27/2024 Nurse Triage [address] [phone] Bruna Quiñones RN 12/22/2024 8:13 AM MANAGER AMBULATORY - 12/24/2024 12:26 PM MANAGER AMBULATORY Hospital Encounter [address] [phone] Antonio Funez MD Russell, Sharman Maurissa, MD Bligard, Katherine Hollister, MD Encounter for induction of labor (Primary Dx); care following vaginal delivery Discharge Disposition: Discharge to home or self care 12/23/2024 Telephone [facility] [address] [place] [address] [address] [place] [phone] Brenna Aguilar 12/22/2024 2:36 PM MANAGER AMBULATORY Anesthesia Event [address] [phone] Roger Rivas MD To, MD Pam 12/21/[address] [phone] Caroline Miller RN Scheduled Induction 12/17/2024 9:25 PM MANAGER AMBULATORY - 12/17/2024 11:40 PM MANAGER AMBULATORY Hospital Encounter [address] [phone] Antonio Funez MD Discharge Disposition: Discharge to home or self care 12/17/2024 Orders Only [facility] [address] [place] [address] [address] [place] [phone] Clover Garrett RN 12/16/[address] [phone] Ana Eldridge MD 12/16/2024 1:00 PM MANAGER AMBULATORY Office Visit [facility] [address] [facility] 3rd Floor [address] [place] [phone] Ana Eldridge MD Chronic hypertension (Primary Dx); Obesity, unspecified class, unspecified obesity type, unspecified whether serious comorbidity present; Supervision of other normal , antepartum; Marginal insertion of umbilical cord affecting management of mother; Short interval between pregnancies; Moderate episode of recurrent major depressive disorder (HCC); Rectal lesion 12/16/2024 1:30 PM MANAGER AMBULATORY Procedure visit [facility] [address] [facility] 3rd Floor [address] [place] [phone] Transverse lie of fetus, single or unspecified fetus (Primary Dx) 12/12/[address] [phone] Sue Carrion RN Incoming Call (23 y/o at 36 5/7 weeks EGA calls reporting BP 140/100 this afternoon. Also reports mild headache. Denies LOF,VB,contractions. Instructed she may take tylenol 1000 mg for headache relief, and to recheck BP in 15 min. Instructed to come to [facility] if BP 160/110 or if headache is not relieved by tylenol. Instructed to come to [facility] for other symptoms preeclampsia, Ruq pain, increased headache, visual cheanges, increased swelling, decreased urination, DFM, LOF or VB. Verbalizes understanding of ins) 12/12/2024 7:53 PM MANAGER AMBULATORY - 12/12/2024 10:55 PM MANAGER AMBULATORY Hospital Encounter [address] [phone] Venecia You MD Discharge Disposition: Discharge to home or self care 12/10/2024 9:07 PM MANAGER AMBULATORY - 12/10/2024 10:45 PM MANAGER AMBULATORY Hospital Encounter [address] [place] [phone] Eleno Tyelr MD Discharge Disposition: Discharge to home or self care 12/09/2024 11:15 AM MANAGER AMBULATORY Office Visit [facility] [address] [place] [address] 3rd Floor [address] [place] [phone] Noreen Rucker NP , unspecified gestational age [...] single or unspecified fetus 12/09/2024 10:28 AM MANAGER AMBULATORY - 12/09/2024 11:59 PM MANAGER AMBULATORY Hospital Encounter [facility] - Ultrasound [address] [place] [phone] Supervision of other normal , antepartum Discharge Disposition: Discharge to home or self care 12/05/2024 Nurse Triage [address] [phone] Bruna Quiñones RN 11/30/2024 3:43 PM MANAGER AMBULATORY - 11/30/2024 5:53 PM MANAGER AMBULATORY Hospital Encounter [address] [phone] Adrianna Lord MD Discharge Disposition: Discharge to home or self care 11/25/2024 8:45 AM MANAGER AMBULATORY Office Visit [facility] [address] [place] [address] 3rd Floor [address] [place] [phone] Noreen Rucker NP Chronic hypertension (Primary Dx); Obesity, unspecified class, unspecified obesity type, unspecified whether serious comorbidity present; Short interval between pregnancies; Rubella non-immune status, antepartum; Marginal insertion of umbilical cord affecting management of mother; Supervision of other normal , antepartum; Moderate episode of recurrent major depressive disorder (HCC); Pelvic and perineal pain 11/23/2024 1:56 PM MANAGER AMBULATORY - 11/23/2024 4:44 PM MANAGER AMBULATORY Hospital Encounter [address] [place] [address] Adrianna Lord MD Britt-Ludditt, Pam Paul NP [...] (constipation) 289 g 12/23/19 25 Active lactic ymii-zxnmvx-xjdpku ium (Phexxi) 1.8-1-0.4 % gel vaginal gel [...] carried 26/05 in house: R1 (first call) [phone] R1 alt (second call) [phone] R4 (Chief) [phone] Transverse lie of fetus 12/09/2024 Overview (12/09/2024): [...] patch, ring, injection, implant, IUD. Undecided [x] Slip Cover Estimator [x] Car seat discussed [] PP depression [...] Specialized anatomic survey at 20 weeks (Order [id number]) - ordered [x] Serial growth ultrasounds every [...] cream: apply three days per week (eg, Epvmzn-Alvvhsjkx-Utjvqg) for up to 16 weeks. Wash hands [...] in Assessment & Plan (10/08/2022 12:04 PM MANAGER AMBULATORY): Lab Results Component Value Date CHOL 215 [...] day Assessment & Plan (10/08/2022 12:01 PM MANAGER AMBULATORY): Stable - continue current regimen Assessment & [...] in 3 days if still symptomatic. Avoid Good Thunder until all medication complete. Avoid use of bubble baths, perfumed soaps, lotions in vagina. 07/26: Encouraged to take second dose of diflucan. Notify provider if symptoms continue. with inconclusive viability 05/10/2024 06/21/2024 Overview (05/17/2024): Telephone Number Kyle Benavides [phone] (home) Home Yes [] PUL Card Given [...] insurance? If not, make clinic appointment for [place] medicaid specialist OR refer to [place] medicaid office. > has insurance [x] Signed out with attending and okay to remove from beta book. Attending Name: Barb Bacterial vaginosis 03/24/2024 06/21/20 Overview (10/28/2023): -Rx Flagyl 500mg take 1 tablet twice daily x 7 days. -Avoid Alcohol while taking. -Rx Fluconazole 150 mg take 1 tablet today/after BV treatment PRN, repeat PRN -Avoid Good Thunder until after completion of all medication. -Discussed [...] 06/24/2023 Assessment & Plan (11/08/2022 9:02 PM MANAGER AMBULATORY): Self swab done for vaginitis panel. Results came back positive for BV. Patient made aware and treated with Flagyl. Painful urination 11/08/2022 06/24/2023 Assessment & Plan (11/08/2022 9:04 PM MANAGER AMBULATORY): Urine sent for culture. Treated for UTI [...] counseling. Assessment & Plan (12/31/2022 11:15 AM MANAGER AMBULATORY): Wt Readings from Last 3 Encounters: 12/31/22 [...] counseling. Assessment & Plan (10/08/2022 12:00 PM MANAGER AMBULATORY): Wt Readings from Last 3 Encounters: 10/08/22 [...] uit: Not Asked; Counseling Given: Not Answered [facility] Utilities Answer Date Recorded In the past 12 months has th e electric, gas, oil, or water [employer] threatened to shut off services in your [...] often do you attend chur ch or nondenominational services? Never 12/23/2024 Do you belong to any clubs o r organizations such as caodaism groups, unions, fraternal or athletic groups, or [...] staff should administer the PHQ-9) 0 12/27/2024 [facility] - Occupational Stress Questionnaire Answer Date [...] place to sleep or slept in a care home (including now)? No 12/01/2023 Iota Depression Scale Answer Date Recorded Iota Depression Scale Total 6 02/03/2025 The thought [...] any time in the past 12 [facility], were you homeless or living in a care home (including now)? No 12/23/2024 Personal Safety [...] on file Legal Sex Female 12:21 PM MANAGER AMBULATORY Gender Identity Female 09/30/2022 1:11 AM MANAGER AMBULATORY Sexual Orientation Straight 02/06/2023 11 :12 PM [...] Respiratory Rate 19 01/05/2025 12:5 9 PM MANAGER AMBULATORY Oxygen Saturation 100% 02/03/2025 11: 04 AM CDT Inhaled Oxygen Concentration - - Weight 110.9 kg (244 lb 6.4 oz) 025 11:04 AM CDT Height 167.6 cm (5' 6 ) 12/22/2024 8:19 AM MANAGER AMBULATORY Body Mass Index 39.45 12/22/2024 8:19 AM MANAGER AMBULATORY Plan of Treatment Not on file Procedures Procedure Name Priority Date/Time Associated Diagnosis Comments POCT HCG, URINE Routine 02/03/2025 11:20 AM CDT Negative test URINE CULTURE Routine 01/05/2025 4:28 PM MANAGER AMBULATORY Encounter for routine follow-up PROTEIN / CREATININE RATIO, URINE, RANDOM Routine 01/05/2025 3:06 PM MANAGER AMBULATORY Encounter for routine follow-up EGFR Routine 01/05/2025 1:49 PM MANAGER AMBULATORY Encounter for routine follow-up COMPREHENSIVE METABOLIC PANEL Routine 01/05/2025 1:49 PM MANAGER AMBULATORY Encounter for routine follow-up CBC WITHOUT DIFFERENTIAL Routine 01/05/2025 1:49 PM MANAGER AMBULATORY Encounter for routine follow-up CT AN PROCEDURE PLACEHOLDER Routine 12/22/2024 3:08 PM MANAGER AMBULATORY PROTEIN / CREATININE RATIO, URINE, RANDOM Routine 12/22/2024 10:04 AM MANAGER AMBULATORY EGFR STAT 12/22/2024 9:19 AM MANAGER AMBULATORY URIC ACID Routine 12/22/2024 9:19 AM MANAGER AMBULATORY COMPREHENSIVE METABOLIC PANEL STAT 12/22/2024 9:19 AM MANAGER AMBULATORY CBC WITHOUT DIFFERENTIAL STAT 12/22/2024 9:19 AM MANAGER AMBULATORY TYPE AND SCREEN STAT 12/22/2024 9:19 AM MANAGER AMBULATORY RPR STAT 12/22/2024 9:19 AM MANAGER AMBULATORY US OB LIMITED IP Routine 12/22/2024 8:59 AM MANAGER AMBULATORY Encounter for induction of labor URINE CULTURE STAT 12/17/2024 9:54 PM MANAGER AMBULATORY POCT URINALYSIS (CLINITEK) Routine 12/17/2024 9:45 PM MANAGER AMBULATORY EGFR STAT 12/12/2024 8:27 PM MANAGER AMBULATORY PROTEIN / CREATININE RATIO, URINE, RANDOM STAT 12/12/2024 8:27 PM MANAGER AMBULATORY COMPREHENSIVE METABOLIC PANEL STAT 12/12/2024 8:27 PM MANAGER AMBULATORY CBC WITHOUT DIFFERENTIAL STAT 12/12/2024 8:27 PM MANAGER AMBULATORY N. GONORRHOEAE/C. TRACHOMATIS AMPLIFICATION Routine 12/09/2024 2:28 PM MANAGER AMBULATORY , unspecified gestational age TRICHOMONAS VAGINALIS PCR Routine 12/09/2024 2:28 PM MANAGER AMBULATORY , unspecified gestational age TYPE AND SCREEN Routine 12/09/2024 11:38 AM MANAGER AMBULATORY , unspecified gestational age EGFR Routine 12/09/2024 11:35 AM MANAGER AMBULATORY Supervision of other normal , antepartum CBC WITHOUT DIFFERENTIAL Routine 12/09/2024 11:35 AM MANAGER AMBULATORY , unspecified gestational age COMPREHENSIVE METABOLIC PANEL Routine 12/09/2024 11:35 AM MANAGER AMBULATORY Supervision of other normal , antepartum HIV 1/2 ANTIBODY PLUS P24 ANTIGEN Routine 12/09/2024 11:35 AM MANAGER AMBULATORY , unspecified gestational age RPR Routine 12/09/2024 11:35 AM MANAGER AMBULATORY , unspecified gestational age GROUP B STREPTOCOCCUS CULTURE Routine 12/09/2024 11:09 AM MANAGER AMBULATORY OB FOLLOW UP Schedule Routine, Read Routine (OP Routine) 12/09/2024 10:28 AM MANAGER AMBULATORY Supervision of other normal , antepartum RESPIRATORY PATHOGEN PANEL Routine 11/30/2024 4:10 PM MANAGER AMBULATORY ECG 12-LEAD Routine 11/30/2024 3:59 PM MANAGER AMBULATORY POCT URINALYSIS (CLINITEK) Routine 11/30/2024 3:57 PM MANAGER AMBULATORY TRICHOMONAS VAGINALIS PCR STAT 11/23/2024 3:51 PM MANAGER AMBULATORY N. GONORRHOEAE/C. TRACHOMATIS AMPLIFICATION STAT 11/23/2024 3:51 PM MANAGER AMBULATORY EGFR STAT 11/23/2024 2:39 PM MANAGER AMBULATORY DIFFERENTIAL AUTO STAT 11/23/2024 2:3 9 PM MANAGER AMBULATORY PROTEIN / CREATININE RATIO, URINE, RANDOM STAT 11/23/2024 2:39 PM MANAGER AMBULATORY COMPREHENSIVE METABOLIC PANEL STAT 11/23/2024 2:39 PM MANAGER AMBULATORY CBC WITH AUTO DIFFERENTIAL STAT 11/23/2024 2:39 PM MANAGER AMBULATORY HEPATITIS C ANTIBODY Routine 05/21/2024 12:00 PM [...] 02/03/2025 11:2 0 AM CDT Noreen Rucker EMERGENCY RESPONSE COORDINATOR POINT OF CARE TEST ORDERABL ES Final Result * Urine culture Urine, clean voided (01/05/2025 4:28 PM MANAGER AMBULATORY) Report Final Report: Less than 100,000 colonies/mL (clinically insignificant growth based on current clinical standards) Organism ([facility] INS[facility] Urine, clean voided 01/05/2025 4:28 PM MANAGER AMBULATORY 01/05/2025 5:06 PM MANAGER AMBULATORY Narrative [facility] - 01/06/2025 6:30 PM MANAGER AMBULATORY Testing performed by Microbiology Laboratory ([phone]) us Noreen Rucker LAB MICROBIOLOGY - GENERAL ORDERABLES Final Result Performing Organization Address [facility] Co de Phone Number [facility] [place] [address] * Protein / creatinine ratio, urine, random (01/05/2025 3:06 PM MANAGER AMBULATORY) Protein, ur, quant 13.6 mg/dL Comment: Interpretive Data No reference range established. Current interpretive data was last revised 2019. Creatinine Ur 95.0 mg/dL [facility] Comment: Interpretive Data No reference range established. Current interpretive data was last revised 2019. Protein/creatinin e ratio 143.2 0.0 - 180.0 mg/g CR [facility] Urine 01/05/2025 3:06 PM MANAGER AMBULATORY 01/05/2025 4:44 PM MANAGER AMBULATORY Noreen Rucker LAB URINE ORDERABLES Final Result Performing Organization Address [facility] de Phone Number [facility] [place] [address] * eGFR (01/05/2025 1:49 PM MANAGER AMBULATORY) Pathologist [facility] eGFR >90 >=60 mL/min/1. 73 m2 Comment: [...] last reviewed 2021. Blood 01/05/2025 1:49 PM MANAGER AMBULATORY 01/05/2025 2:47 PM MANAGER AMBULATORY Noreen Rucker EMERGENCY RESPONSE COORDINATOR LAB BLOOD ORDERABLES Final Result Performing Organization Address City/[facility]/ZIP Co de Phone Number [facility] [place] [address] * (ABNORMAL) CBC without differential (01/05/2025 1:49 PM MANAGER AMBULATORY) WBC 11.3(H) 3.8 - 9.9 K/cumm Hgb 12.4 11.9 - 15.5 g/dL [facility] Hct 40.8 35.6 - 45.5 % [facility] Plt 434(H) 150 - 400 K/cumm [facility] MPV 10.3 9.1 - 12.[address] [facility] RBC 5.44(H) 3.90 - 5.20 M/cumm [facility] MCV 75.0(L) 81.3 - 96.[address] [facility] MCH 22.8(L) 27.1 - 33.[address] [facility] MCHC 30.4(L) 32.3 - 35.7 g/dL [facility] RDW CV 14.8 11.1 - 14.9 % [facility] RDW SD 39.9 35.7 - 48.[address] [facility] NRBC abs 0.00 0.00 - 0.01 K/cumm [facility] Blood 01/05/2025 1:49 PM MANAGER AMBULATORY 01/05/2025 2:47 PM MANAGER AMBULATORY Noreen Rucker EMERGENCY RESPONSE COORDINATOR LAB BLOOD ORDERABLES Final Result Performing Organization Address City/[facility]/ZIP Co de Phone Number [facility] [place] [address] * (ABNORMAL) Comprehensive metabolic panel (01/05/2025 1:49 PM MANAGER AMBULATORY) Sodium 145 135 - 145 mmol/L Potassium, pl 4.1 3.3 - 4.9 mmol/L [facility] Chloride 106 97 - 110 mmol/L [facility] CO2 28 22 - 32 mmol/L [facility] Anion gap 11 2 - 15 mmol/L [facility] BUN 14 6 - 25 mg/dL [facility] Creatinine 0.76 0.60 - 1.10 mg/dL [facility] Glucose 88 70 - 199 mg/dL [facility] Comment: Interpretive Data Fasting glucose [...] 2022. Calcium 8.9 8.5 - 10.3 mg/dL [facility] Bilirubin, total <0.2 0.1 - 1.2 mg/dL [facility] Comment:Reviewed Protein, pl 7.0 6.5 - 8.5 g/dL [facility] Albumin 3.7 3.5 - 5.0 g/dL [facility] Alk phos 156(H) 40 - 130 Units/L [facility] ALT 36 7 - 45 Units/L [facility] Comment:Reviewed AST 34 10 - 45 Units/L [facility] Blood 01/05/2025 1:49 PM MANAGER AMBULATORY 01/05/2025 2:47 PM MANAGER AMBULATORY Noreen Rucker NP LAB BLOOD ORDERABLES Final Result [facility] [place] [address] * CT AN PROCEDURE PLACEHOLDER (12/22/2024 3:08 PM MANAGER AMBULATORY) Narrative Nhan Olivia CRNA - 12/22/2024 3:08 PM MANAGER AMBULATORY Nhan Olivia CRNA 12/22/2024 3:08 PM Epidural Block Patient location: L&D Reason for block: labor analgesia Staff: Supervising provider: Roger Rivas MD Placed by: PHARMACY INFORMATICS MANAGER: Nhan Olivia CRNA Procedure prep: Preprocedure checklist: [...] creatinine ratio, urine, random (12/22/2024 10:04 AM MANAGER AMBULATORY) Protein, ur, quant 32.9 mg/dL Comment: Interpretive Data No reference range established. Current interpretive data was last revised 2019. Creatinine Ur 180.3 mg/dL [facility] Comment: Interpretive Data No reference range established. Current interpretive data was last revised 2019. Protein/creatinin e ratio 182.5(H) 0.0 - 180.0 mg/g CR [facility] Urine 12/22/2024 10:0 4 AM MANAGER AMBULATORY 12/22/2024 10:16 AM MANAGER AMBULATORY us Alvino ROB LAB URINE ORDERABLES Final Result [facility] [place] [address] * eGFR (12/22/2024 9:19 AM MANAGER AMBULATORY) eGFR >90 >=60 mL/min/1. 73 m2 Comment: [...] last reviewed 2021. Blood 12/22/2024 9:19 AM MANAGER AMBULATORY 12/22/2024 9:31 AM MANAGER AMBULATORY us Alvino ROB LAB BLOOD ORDERABLES Final Result Performing Organization Address City/[facility]/ZIP Co de Phone Number [facility] [place] [address] * RPR Blood (12/22/2024 9:19 AM MANAGER AMBULATORY) RPR Nonreactive Nonreactive Blood 12/22/2024 9:19 AM MANAGER AMBULATORY 12/22/2024 9:31 AM MANAGER AMBULATORY Alvino ROB LAB MICROBIOLOGY - GENERAL ORDERABLES Final Result [facility] [place] [address] * (ABNORMAL) CBC without differential (12/22/2024 9:19 AM MANAGER AMBULATORY) WBC 10.3(H) 3.8 - 9.9 K/cumm Hgb 10.8(L) 11.9 - 15.5 g/dL [facility] Hct 33.8(L) 35.6 - 45.5 % [facility] Plt 402(H) 150 - 400 K/cumm [facility] MPV 10.3 9.1 - 12.[address] [facility] RBC 4.55 3.90 - 5.20 M/cumm [facility] MCV 74.3(L) 81.3 - 96.[address] [facility] MCH 23.7(L) 27.1 - 33.[address] [facility] MCHC 32.0(L) 32.3 - 35.7 g/dL [facility] RDW CV 14.5 11.1 - 14.9 % [facility] RDW SD 38.5 35.7 - 48.[address] [facility] NRBC abs 0.00 0.00 - 0.01 K/cumm [facility] Blood 12/22/2024 9:19 AM MANAGER AMBULATORY 12/22/2024 9:31 AM MANAGER AMBULATORY Alvino Angel CNM LAB BLOOD ORDERABLES Final Result [facility] [place] [address] * Type and screen (12/22/2024 9:19 AM MANAGER AMBULATORY) ABO Rh O Positive Nitin, indirect Negative [facility] Blood 12/22/2024 9:19 AM MANAGER AMBULATORY 12/22/2024 9:39 AM MANAGER AMBULATORY Narrative [facility] - 12/22/2024 10:36 AM MANAGER AMBULATORY Has the patient had Daratumumab or Isatuximab in the past 6 months?->Unknown Alvino ROBM LAB BLOOD BANK TEST ORDERAB LES Final Result Performing Organization Address City/[facility]/ZIP Co de Phone Number [facility] [place] [address] * Uric acid (12/22/2024 9:19 AM MANAGER AMBULATORY) [facility] Uric acid 4.8 2.5 - 7.0 mg/dL Blood 12/22/2024 9:19 AM MANAGER AMBULATORY 12/22/2024 9:31 AM MANAGER AMBULATORY Alvino Angel [facility] LAB BLOOD ORDERABLES Final Result Performing Organization Address [facility] Co de Phone Number [facility] [place] [address] * (ABNORMAL) Comprehensive metabolic panel (12/22/2024 9:19 AM MANAGER AMBULATORY) [facility] Sodium 141 135 - 145 mmol/L Potassium, pl 3.8 3.3 - 4.9 mmol/L [facility] Chloride 107 97 - 110 mmol/L [facility] CO2 24 22 - 32 mmol/L [facility] Anion gap 10 2 - 15 mmol/L [facility] BUN 6 6 - 25 mg/dL [facility] Creatinine 0.58(L) 0.60 - 1.10 mg/dL [facility] Glucose 89 70 - 199 mg/dL [facility] Comment: Interpretive Data Fasting glucose [...] 2022. Calcium 9.0 8.5 - 10.3 mg/dL [facility] Bilirubin, total 0.2 0.1 - 1.2 mg/dL [facility] Protein, pl 6.8 6.5 - 8.5 g/dL [facility] Albumin 3.3(L) 3.5 - 5.0 g/dL [facility] Alk phos 196(H) 40 - 130 Units/L [facility] ALT 9 7 - 45 Units/L [facility] AST 14 10 - 45 Units/L [facility] Blood 12/22/2024 9:19 AM MANAGER AMBULATORY 12/22/2024 9:31 AM MANAGER AMBULATORY us Alvino Angel CN LAB BLOOD ORDERABLES Final Result Performing Organization Address [facility]/ZIP Co de Phone Number [facility] [place] [address] * US Ob Limited (12/22/2024 8:59 AM MANAGER AMBULATORY) Anatomical Region Laterality Modality Abdomen N/A Ultrasound Narrative 12/22/2024 8:59 AM MANAGER AMBULATORY Vertex I have reviewed the images and agree with above. Tanvir Beatty MD us Tanvir Beatty MD IMG OB US PROCEDURES Final Result * Urine culture Urine, clean voided (12/17/2024 9:54 PM MANAGER AMBULATORY) Report Final Report: Less than 100,000 colonies/mL (clinically insignificant growth based on current clinical standards) Organism (CLINICALLY INSIGNIFICANT GROWTH [facility] Urine, clean voided 12/17/2024 9:54 PM MANAGER AMBULATORY 12/17/2024 10:02 PM MANAGER AMBULATORY Narrative [facility] - 12/19/2024 10:26 AM MANAGER AMBULATORY Indications for Culture:-> patient Specimen received in a sterile container. Testing performed by Microbiology Laboratory ([phone]) us Aidan Osullivan EMERGENCY RESPONSE COORDINATOR LAB MICROBIOLOGY - GENER AL ORDERABLES Final Result Performing Organization Address City/[facility]/ZIP Co de Phone Number [facility] [place] [address] * (ABNORMAL) POCT urinalysis (Clinitek) (12/17/2024 9:45 PM MANAGER AMBULATORY) Pathologist [facility] Color, ur, POC Yellow Yellow Clarity, UA, POC Clear Clear [facility] Glucose, ur, POC Negative Negative [facility] Bilirubin, ur, POC Negative Negative [facility] Ketones, ur, POC Negative Negative [facility] Specific gravity, ur, POC 1.015 1.010 - 1.025 [facility] Blood, ur, POC Negative Negative [facility] pH, ur, POC 7.0 [facility] Comment: Interpretive Data Urine pH is affected by diet, medications, systemic acid-base disturbances, and renal tubular function. pH may affect urinary stone formation. For example, urine pH below 6.0 may help reduce the tendency for calcium phosphate stones and pH greater than 6.0 may reduce the tendency for uric acid stone formation. Source: [employer]os[employer]X. Last Revised Date: 11-13-2017 Protein, ur, POC Negative Negative [facility] Urobilinogen, ur, POC 0.2 mg/dL mg/dL [facility] Nitrites, ur, POC Negative Negative [facility] Leukocyte esterase, ur, POC 1+(A) Negative [facility] Urine 12/17/2024 9:45 PM MANAGER AMBULATORY 12/17/2024 9:45 PM MANAGER AMBULATORY Antonio Funez MD LAB POCT ORDERABLES - DEV ICE Final Result [facility] [place] [address] * eGFR (12/12/2024 8:27 PM MANAGER AMBULATORY) [facility] eGFR >90 >=60 mL/min/1. 73 m2 Comment: [...] last reviewed 2021. Blood 12/12/2024 8:27 PM MANAGER AMBULATORY 12/12/2024 8:46 PM MANAGER AMBULATORY Venecia You MD LAB BLOOD ORDERABLES F inal Result Performing Organization Address [facility] Co de Phone Number [facility] Department [place] [address] * Protein / creatinine ratio, urine, random (12/12/2024 8:27 PM MANAGER AMBULATORY) Protein, ur, quant <5.0 mg/dL Comment: Interpretive Data No reference range established. Current interpretive data was last revised 2019. Creatinine Ur 36.0 mg/dL [facility] Comment: Interpretive Data No reference range established. Current interpretive data was last revised 2019. Protein/creatinin e ratio <138.9 0.0 - 180.0 mg/g CR [facility] Urine 12/12/2024 8:27 PM MANAGER AMBULATORY 12/12/2024 8:46 PM MANAGER AMBULATORY Venecia You MD LAB URINE ORDERABLES F inal Result Performing Organization Address [facility]/ZIP Co de Phone Number [facility] [place] [address] * (ABNORMAL) CBC without differential (12/12/2024 8:27 PM MANAGER AMBULATORY) [facility] WBC 10.4(H) 3.8 - 9.9 K/cumm Hgb 10.8(L) 11.9 - 15.5 g/dL [facility] Hct 33.5(L) 35.6 - 45.5 % [facility] Plt 376 150 - 400 K/cumm [facility] MPV 10.1 9.1 - 12.[address] [facility] RBC 4.55 3.90 - 5.20 M/cumm [facility] MCV 73.6(L) 81.3 - 96.[address] [facility] MCH 23.7(L) 27.1 - 33.[address] [facility] MCHC 32.2(L) 32.3 - 35.7 g/dL [facility] RDW CV 14.2 11.1 - 14.9 % [facility] RDW SD 37.8 35.7 - 48.[address] [facility] NRBC abs 0.00 0.00 - 0.01 K/cumm [facility] Blood 12/12/2024 8:27 PM MANAGER AMBULATORY 12/12/2024 8:48 PM MANAGER AMBULATORY Venecia You MD LAB BLOOD ORDERABLES F inal Result [facility] [place] [address] * (ABNORMAL) Comprehensive metabolic panel (12/12/2024 8:27 PM MANAGER AMBULATORY) [facility] Sodium 144 135 - 145 mmol/L Potassium, pl 3.7 3.3 - 4.9 mmol/L [facility] Chloride 109 97 - 110 mmol/L [facility] CO2 25 22 - 32 mmol/L [facility] Anion gap 10 2 - 15 mmol/L [facility] BUN 4(L) 6 - 25 mg/dL [facility] Creatinine 0.63 0.60 - 1.10 mg/dL [facility] Glucose 85 70 - 199 mg/dL [facility] Comment: Interpretive Data Fasting glucose [...] Calcium 8.9 8.5 - 10.3 mg/dL [facility] Bilirubin, total 0.2 0.1 - 1.2 mg/dL [facility] Protein, pl 6.5 6.5 - 8.5 g/dL [facility] Albumin 3.2(L) 3.5 - 5.0 g/dL [facility] Alk phos 175(H) 40 - 130 Units/L [facility] ALT 7 7 - 45 Units/L [facility] AST 11 10 - 45 Units/L [facility] Blood 12/12/2024 8:27 PM MANAGER AMBULATORY 12/12/2024 8:46 PM MANAGER AMBULATORY Venecia You MD LAB BLOOD ORDERABLES F inal Result [facility] Department [place] [address] * N. gonorrhoeae/C. trachomatis Amplification Vaginal (12/09/2024 2:28 PM MANAGER AMBULATORY) C. trachomatis Not Detected [facility] N. gonorrhoeae Not Detected [facility] Comment: Interpretive Data This assay detects Chlamydia trachomatis and Neisseria gonorrhoeae by nucleic acid amplification testing (NAAT). This assay has been cleared by the [place] Food and Drug administration. The performance characteristics of this test have been verified by the Molecular Infectious Disease laboratory. The performance characteristics of this test have not been evaluated in individuals less than 14 years of age. Current Interpretive Data was last revised on 2023. Vaginal (None) 12/09/2024 2: 28 PM MANAGER AMBULATORY 12/09/2024 2:34 PM MANAGER AMBULATORY Noreen Rucker NP LAB MICROBIOLOGY - GENERAL ORDERABLES Final Result Performing Organization Address [facility] de Phone Number [facility] [place] [address] [facility] * Trichomonas vaginalis PCR Vaginal (12/09/2024 2:28 PM MANAGER AMBULATORY) Pathologist [facility] Trichomonas DNA Not Detected [facility] Comment: Interpretive Data This assay detects Trichomonas vaginalis by nucleic acid amplification testing (NAAT). This assay has been cleared by the [place] Food and Drug administration. The performance characteristics of this test have been verified by the Molecular Infectious Disease laboratory. The performance of this test has not been evaluated in individuals less than 18 years of age. Current Interpretive Data was last revised on 2023. Vaginal 12/09/2024 2:28 PM MANAGER AMBULATORY 12/09/2024 2:34 PM MANAGER AMBULATORY Noreen Rucker NP LAB MICROBIOLOGY - GENERAL ORDERABLES Final Result Performing Organization Address [facility] de Phone Number [facility] Department [place] [address] [facility] * Type and screen (12/09/2024 11:38 AM MANAGER AMBULATORY) Pathologist [facility] Nitin, indirect Negative ABO Rh O Positive [facility] Blood 12/09/2024 11:3 8 AM MANAGER AMBULATORY 12/09/2024 12:42 PM MANAGER AMBULATORY Narrative [facility] - 12/09/2024 1:47 PM MANAGER AMBULATORY Has the patient had Daratumumab or Isatuximab in the past 6 months?->Unknown Noreen Rucker NP LAB BLOOD BANK TEST ORDERAB LES Final Result Performing Organization Address [facility] Co de Phone Number [facility] [place] [address] * eGFR (12/09/2024 11:35 AM MANAGER AMBULATORY) eGFR >90 >=60 mL/min/1. 73 m2 Comment: [...] reviewed 2021. Blood 12/09/2024 11:3 5 AM MANAGER AMBULATORY 12/09/2024 12:19 PM MANAGER AMBULATORY Noreen Rucker NP LAB BLOOD ORDERABLES Final Result [facility] [place] [address] * HIV 1/2 Antibody plus p24 Antigen Blood (12/09/2024 11:35 AM MANAGER AMBULATORY) HIV 1/2 ab + p24 ag Nonreactive Nonreactive Comment:Nonreactive for HIV- 1 antigen and HIV-1/HIV-2 antibodies. No laboratory evidence of HIV infection. If acute HIV infection is suspected, consider testing for HIV-1 RNA. Current interpretive data was last revised on 22. Blood 12/09/2024 11:3 5 AM MANAGER AMBULATORY 12/09/2024 12:19 PM MANAGER AMBULATORY Noreen Ellienathan Rucker EMERGENCY RESPONSE COORDINATOR LAB MICROBIOLOGY - GENERAL ORDERABLES Final Result [facility] [place] [address] * RPR Blood (12/09/2024 11:35 AM MANAGER AMBULATORY) [facility] RPR Nonreactive Nonreactive Blood 12/09/2024 11:3 5 AM MANAGER AMBULATORY 12/09/2024 12:20 PM MANAGER AMBULATORY Noreen Rucker EMERGENCY RESPONSE COORDINATOR LAB MICROBIOLOGY - GENERAL ORDERABLES Final Result Performing Organization Address [facility] de Phone Number [facility] [place] [address] * (ABNORMAL) CBC without differential (12/09/2024 11:35 AM MANAGER AMBULATORY) [facility] WBC 10.8(H) 3.8 - 9.9 K/cumm Hgb 11.2(L) 11.9 - 15.5 g/dL [facility] Hct 36.4 35.6 - 45.5 % [facility] Plt 394 150 - 400 K/cumm [facility] MPV 10.2 9.1 - 12.[address] [facility] RBC 4.66 3.90 - 5.20 M/cumm [facility] MCV 78.1(L) 81.3 - 96.[address] [facility] MCH 24.0(L) 27.1 - 33.[address] [facility] MCHC 30.8(L) 32.3 - 35.7 g/dL [facility] RDW CV 14.4 11.1 - 14.9 % [facility] RDW SD 40.3 35.7 - 48.[address] [facility] NRBC abs 0.00 0.00 - 0.01 K/cumm [facility] Blood 12/09/2024 11:3 5 AM MANAGER AMBULATORY 12/09/2024 12:20 PM MANAGER AMBULATORY Noreen Rucker EMERGENCY RESPONSE COORDINATOR LAB BLOOD ORDERABLES Final Result [facility] [place] [address] * (ABNORMAL) Comprehensive metabolic panel (12/09/2024 11:35 AM MANAGER AMBULATORY) Sodium 139 135 - 145 mmol/L Potassium, pl 3.8 3.3 - 4.9 mmol/L [facility] Chloride 107 97 - 110 mmol/L [facility] CO2 23 22 - 32 mmol/L [facility] Anion gap 9 2 - 15 mmol/L [facility] BUN 4(L) 6 - 25 mg/dL [facility] Creatinine 0.54(L) 0.60 - 1.10 mg/dL [facility] Glucose 89 70 - 199 mg/dL [facility] Comment: Interpretive Data Fasting glucose [...] 2022. Calcium 9.0 8.5 - 10.3 mg/dL [facility] Bilirubin, total 0.2 0.1 - 1.2 mg/dL [facility] Protein, pl 6.8 6.5 - 8.5 g/dL [facility] Albumin 3.2(L) 3.5 - 5.0 g/dL [facility] Alk phos 179(H) 40 - 130 Units/L [facility] ALT 9 7 - 45 Units/L [facility] AST 16 10 - 45 Units/L [facility] Blood 12/09/2024 11:3 5 AM MANAGER AMBULATORY 12/09/2024 12:19 PM MANAGER AMBULATORY us Noreen Rukcer NP LAB BLOOD ORDERABLES Final Result Performing Organization Address [facility]/ZIP Co de Phone Number [facility] [place] [address] * (ABNORMAL) Group B streptococcal culture Vaginal/Rectal (12/09/2024 11:09 AM MANAGER AMBULATORY) Report Amended Report - Complete: Streptococcus agalactiae (Group B Streptococci) (.) Organism STREPTOCOCCUS AGALACTIAE (GROUP B STREPTOCOCCI) [facility] Vaginal/Rectal 12/09/2024 11 :09 AM MANAGER AMBULATORY 12/09/2024 2:29 PM MANAGER AMBULATORY Narrative [facility] - 12/19/2024 10:57 AM MANAGER AMBULATORY Testing performed by [facility] Microbiology Laboratory ([phone]). Organism Antibiotic Method Susceptibility Streptococcus agalactiae (Gr [...] Edited Result - Final Performing Organization Address [facility] Co de Phone Number [facility] [place] [address] * US Ob Follow Up (12/09/2024 10:28 AM MANAGER AMBULATORY) Fetus# Fetus1 [facility] Estimated Weight 3,075 g&grams [facility] Placenta Details anterior, Previa-no, no placental masses [facility] Presentation Transverse Lie [facility] Anatomical Region Laterality Modality Abdomen N/A Ultrasound 12/09/2024 10:3 5 AM MANAGER AMBULATORY Impressions 12/09/2024 11:06 AM MANAGER AMBULATORY Rob[place]o IUP at 36w 2d who presents [...] fluid volume is normal. us Noreen Rucker EMERGENCY RESPONSE COORDINATOR IMG OB US PROCEDURES Final Result * Respiratory pathogen panel Nasopharyngeal (11/30/2024 4:10 PM MANAGER AMBULATORY) Pathologist [facility] Influenza A RNA Not Detected Not Detected Influenza B RNA Not Detected Not Detected [facility] RSV RNA Not Detected Not Detected [facility] COVID-19 RNA Not Detected Not Detected [facility] Coronavirus 229E RNA Not Detected Not Detected [facility] Coronavirus HKU1 RNA Not Detected Not Detected [facility] Coronavirus NL63 RNA Not Detected Not Detected [facility] Coronavirus OC43 RNA Not Detected Not Detected [facility] Adenovirus DNA Not Detected Not Detected [facility] Metapneumovirus RNA Not Detected Not Detected [facility] Rhinovirus/Enterov irus RNA Not Detected Not Detected [facility] Parainfluenza 1 RNA Not Detected Not Detected [facility] Parainfluenza 2 RNA Not Detected Not Detected [facility] Parainfluenza 3 RNA Not Detected Not Detected [facility] Parainfluenza 4 RNA Not Detected Not Detected [facility] B. pertussis DNA Not Detected Not Detected [facility] B. parapertussis DNA Not Detected Not Detected [facility] C. pneumoniae DNA Not Detected Not Detected [facility] M. pneumoniae DNA Not Detected Not Detected [facility] Nasopharyngeal 11/30/2024 4: 10 PM MANAGER AMBULATORY 11/30/2024 4:23 PM MANAGER AMBULATORY Narrative [facility] - 11/30/2024 6:07 PM MANAGER AMBULATORY Is the Patient experiencing symptoms consistent with COVID?->Yes Surveillance testing for transplant patient?->No Interpretive Data The [employer] FilmArray Respiratory Panel (RP2.1) assay is a [...] assay has FDA clearance for testing of EMERGENCY RESPONSE COORDINATOR swabs. The performance of additional specimen types has been assessed by the performing laboratory. The performance characteristics of this assay have been determined by [facility] Molecular Infectious Disease Laboratory. Current interpretive data was last revised on 22. us Mary Anne Vega EMERGENCY RESPONSE COORDINATOR LAB MICROBIOLOGY - [place] ORDERABLES Final Result [facility] Department [place] [address] * ECG 12 lead (11/30/2024 3:59 PM MANAGER AMBULATORY) Ventricular Rate EKG/Min 79 BPM [facility] Atrial Rate 79 BPM [facility] CT-Interval (MSEC) 158 ms [facility] QRS-Interval (MSEC) 92 ms [facility] QT-Interval (MSEC) 354 ms [facility] QTc 405 ms [facility] P [place] 47 degrees [facility] R [place] 46 degrees [facility] T [place] 24 degrees [facility] Diagnosis Normal sinus rhythm Normal ECG When compared with ECG of 21-JUL-2023 11:06, No significant change was found Confirmed by MARGARITO GASCA M.D ([id number]) on 12/01/2024 8:43:46 AM [facility] 11/30/2024 3:59 PM MANAGER AMBULATORY 12/01/2024 8:43 AM MANAGER AMBULATORY us Mary Anne Vega NP ECG ORDERABLES Final Re sult Performing Organization Address [facility] Co de Phone Number [facility] * (ABNORMAL) POCT urinalysis (Clinitek) (11/30/2024 3:57 PM MANAGER AMBULATORY) Color, ur, POC Yellow Yellow Clarity, UA, POC Clear Clear [facility] Glucose, ur, POC Negative Negative [facility] Bilirubin, ur, POC Negative Negative [facility] Ketones, ur, POC Negative Negative [facility] Specific gravity, ur, POC 1.015 1.010 - 1.025 [facility] Blood, ur, POC Negative Negative [facility] pH, ur, POC 6.[address] [facility] Comment: Interpretive Data Urine pH is affected by diet, medications, systemic acid-base disturbances, and renal tubular function. pH may affect urinary stone formation. For example, urine pH below 6.0 may help reduce the tendency for calcium phosphate stones and pH greater than 6.0 may reduce the tendency for uric acid stone formation. Source: [facility] [employer]. Last Revised Date: 11-13-2017 Protein, ur, POC Negative Negative [facility] Urobilinogen, ur, POC 0.2 mg/dL mg/dL [facility] Nitrites, ur, POC Negative Negative [facility] Leukocyte esterase, ur, POC 2+(A) Negative [facility] Urine 11/30/2024 3:57 PM MANAGER AMBULATORY 11/30/2024 3:57 PM MANAGER AMBULATORY Adrianna Lord MD LAB POCT ORDERABLES - DE VICE Final Result Performing Organization Address City/[facility]/ZIP Co de Phone Number [facility] [place] [address] * N. gonorrhoeae/C. trachomatis Amplification Urine (11/23/2024 3:51 PM MANAGER AMBULATORY) Pathologist [facility] C. trachomatis Not Detected Not Detected [facility] N. gonorrhoeae Not Detected Not Detected [facility] Comment: Interpretive Data This assay detects Chlamydia trachomatis and Neisseria gonorrhoeae by nucleic acid amplification testing (NAAT). This assay has been cleared by the [place] Food and Drug administration. The performance characteristics of this test have been verified by the Molecular Infectious Disease laboratory. The performance characteristics of this test have not been evaluated in individuals less than 14 years of age. Current Interpretive Data last revised 2023. Urine (None) 11/23/2024 3:51 PM MANAGER AMBULATORY 11/23/2024 4:44 PM MANAGER AMBULATORY Pam Judge NP LAB MICROBIOLOGY - GENERAL ORDERABLES Final Result Performing Organization Address City/[facility]/ZIP Co de Phone Number [facility] [place] [address] [facility] * Trichomonas vaginalis PCR Urine (11/23/2024 3:51 PM MANAGER AMBULATORY) [facility] Trichomonas DNA Not Detected Not Detected [facility] Comment: Interpretive Data This assay detects Trichomonas vaginalis by nucleic acid amplification testing (NAAT). This assay has been cleared by the [place] Food and Drug administration. The performance characteristics of this test have been verified by the Molecular Infectious Disease laboratory. Excess blood in specimens may be inhibitory and result in false negative results. The performance of this test has not been evaluated in women or individuals less than 18 years of age. Current Interpretive Data last revised 2023. Urine 11/23/2024 3:51 PM MANAGER AMBULATORY 11/23/2024 4:44 PM MANAGER AMBULATORY us Pam Judge NP LAB MICROBIOLOGY - GENERAL ORDERABLES Final Result [facility]Z [facility] [place] [address] [facility] * eGFR (11/23/2024 2:39 PM MANAGER AMBULATORY) eGFR >90 >=60 mL/min/1. 73 m2 Comment: [...] last reviewed 2021. Blood 11/23/2024 2:39 PM MANAGER AMBULATORY 11/23/2024 2:55 PM MANAGER AMBULATORY us Pam Judge EMERGENCY RESPONSE COORDINATOR LAB BLOOD ORDERABL ES Final Result [facility]Z [facility] [place] [address] * (ABNORMAL) Differential, auto (11/23/2024 2:39 PM MANAGER AMBULATORY) Neutrophil abs 8.9(H) 1.5 - 6.5 K/cumm Imm gran abs 0.1 0.0 - 0.1 K/cumm [facility] Lymphocyte abs 2.1 0.8 - 3.3 K/cumm [facility] Monocyte abs 0.6 0.2 - 0.8 K/cumm [facility] Eosinophil abs 0.1 0.0 - 0.5 K/cumm [facility] Basophil abs 0.1 0.0 - 0.1 K/cumm [facility] Neutrophil pct 74.9 % [facility] Comment: Interpretive Data Percent cell count reference ranges are not reported, since discordance with absolute values may lead to misinterpretation of CBC data. Current Interpretive Data was last revised on 2018. Imm gran pct 0.5 % [facility] Comment: Interpretive Data Percent cell count reference ranges are not reported, since discordance with absolute values may lead to misinterpretation of CBC data. Current Interpretive Data was last revised on 2018. Lymphocyte pct 18.0 % [facility] Comment: Interpretive Data Percent cell count reference ranges are not reported, since discordance with absolute values may lead to misinterpretation of CBC data. Current Interpretive Data was last revised on 2018. Monocyte pct 5.4 % [facility] Comment: Interpretive Data Percent cell count reference ranges are not reported, since discordance with absolute values may lead to misinterpretation of CBC data. Current Interpretive Data was last revised on 2018. Eosinophil pct 0.8 % [facility] Comment: Interpretive Data Percent cell count reference ranges are not reported, since discordance with absolute values may lead to misinterpretation of CBC data. Current Interpretive Data was last revised on 2018. Basophil pct 0.4 % [facility] Comment: Interpretive Data Percent cell count reference ranges are not reported, since discordance with absolute values may lead to misinterpretation of CBC data. Current Interpretive Data was last revised on 2018. Blood 11/23/2024 2:39 PM MANAGER AMBULATORY 11/23/2024 2:55 PM MANAGER AMBULATORY Pam Judge NP LAB BLOOD ORDERABL ES Final Result Performing Organization Address [facility] Co de Phone Number [facility] [place] [address] * (ABNORMAL) CBC with auto differential (11/23/2024 2:39 PM MANAGER AMBULATORY) WBC 11.9(H) 3.8 - 9.9 K/cumm Hgb 11.3(L) 11.9 - 15.5 g/dL [facility] Hct 35.0(L) 35.6 - 45.5 % [facility] Plt 380 150 - 400 K/cumm [facility] MPV 9.8 9.1 - 12.[address] [facility] RBC 4.44 3.90 - 5.20 M/cumm [facility] MCV 78.8(L) 81.3 - 96.[address] [facility] MCH 25.5(L) 27.1 - 33.[address] [facility] MCHC 32.3 32.3 - 35.7 g/dL [facility] RDW CV 13.6 11.1 - 14.9 % [facility] RDW SD 38.8 35.7 - 48.[address] [facility] NRBC abs 0.00 0.00 - 0.01 K/cumm [facility] Blood 11/23/2024 2:39 PM MANAGER AMBULATORY 11/23/2024 2:55 PM MANAGER AMBULATORY Pam Judge NP LAB BLOOD ORDERABL ES Final Result Performing Organization Address [facility]/ZIP Co de Phone Number [facility] [place] [address] * Protein / creatinine ratio, urine, random (11/23/2024 2:39 PM MANAGER AMBULATORY) Pathologist [facility] Protein, ur, quant <5.0 mg/dL Comment: Interpretive Data No reference range established. Current interpretive data was last revised 2019. Creatinine Ur 26.0 mg/dL [facility] Comment: Interpretive Data No reference range established. Current interpretive data was last revised 2019. Protein/creatini ne ratio See Comment 0.0 - 180.0 mg/g CR [facility] Comment:Unable to Calculate Urine 11/23/2024 2:39 PM MANAGER AMBULATORY 11/23/2024 3:02 PM MANAGER AMBULATORY Pam Judge NP LAB URINE ORDERABL ES Final Result [facility] [place] [address] * (ABNORMAL) Comprehensive metabolic panel (11/23/2024 2:39 PM MANAGER AMBULATORY) [facility] Sodium 138 135 - 145 mmol/L Potassium, pl 3.8 3.3 - 4.9 mmol/L [facility] Chloride 106 97 - 110 mmol/L [facility] CO2 23 22 - 32 mmol/L [facility] Anion gap 9 2 - 15 mmol/L [facility] BUN 4(L) 6 - 25 mg/dL [facility] Creatinine 0.47(L) 0.60 - 1.10 mg/dL [facility] Glucose 83 70 - 199 mg/dL [facility] Comment: Interpretive Data Fasting glucose [...] 2022. Calcium 8.6 8.5 - 10.3 mg/dL [facility] Bilirubin, total 0.2 0.1 - 1.2 mg/dL [facility] Protein, pl 6.7 6.5 - 8.5 g/dL [facility] Albumin 3.3(L) 3.5 - 5.0 g/dL [facility] Alk phos 148(H) 40 - 130 Units/L [facility] ALT 8 7 - 45 Units/L [facility] AST 16 10 - 45 Units/L [facility] Blood 11/23/2024 2:39 PM MANAGER AMBULATORY 11/23/2024 2:55 PM MANAGER AMBULATORY Pam Judge EMERGENCY RESPONSE COORDINATOR LAB BLOOD ORDERABL ES Final Result Performing Organization Address City/[facility]/ZIP Co de Phone Number [facility] [place] [address] * Hepatitis C antibody Blood (05/21/2024 12:00 PM CDT) Hep C Ab Nonreactive Nonreactive Comment:Antibodies to HCV no t detected. Does NOT exclude the possibility of recent exposure to HCV. Current interpretive data was last revised on 22 Blood 05/21/2024 12:0 0 PM CDT 05/21/2024 12:14 PM CDT Melanie Almeida EMERGENCY RESPONSE COORDINATOR LAB MICROB IOLOGY - GENERAL ORDERABLES Edited Result - Final [facility] [place] [address] * Pap Only (Cytology Component) (01/30/2024 11:27 AM CDT) Thin prep (Pap test) 01/30/2024 11:27 AM CDT 01/30/2024 2:16 PM CDT Narrative PATHOLOGY [facility] - 02/06/2024 1:57 PM CDT EPIC results best viewed via link to PDF [facility] Tricia Dior Laboratory of Surgical Pathology [facility], [place] [address] Note to Patients: This report may contain [...] Gender: F : 2000 (Age: 23) Address: [address] [place], [place] [id number] Hospital #: [id number] Service: SUPERVISOR COIL WINDING Location: Patient Type: [facility] SPECIMEN Taken: 01/30/2024 Received: 01/30/2024 Accessioned: 02/03/2024 [...] clinical information and biopsy results as indicated. [facility] Clinical Laboratory Improvement Amendments (CLIA) mandate that cytologic and histologic results be correlated for laboratory quality systems manager & improvement standards. FOR ALL HIGH-GRADE CASES [...] determined by the Surgical Pathology Department at as part of an ongoing type disk quality control supervisor program and in compliance with federally mandated [...] determined by the Surgical Pathology Department of . It has not been cleared or approved by the U. S. Food and Drug Administration. Noreen Rucker NP LAB CYTOLOGY ORDERABLES [facility] al Result PATHOLOGY [facility] 3rd Floor [place], [place] [phone] from Last 3 Months or Most Recently Relevant to Health Maintenance Insurance [facility] Advance Directives For more information, please contact: [phone] * Full Code (Latest Code Status on [...] in case of cardiopulmonary arrest Care Teams Pupil Personnel Worker Relationship Specialty Start Date End Date Rhianna Chino MD [address] [address] [place] [id number] PCP - General Obstetrics and Gynecology 09/03/24
--- OUTSIDE RECORDS SUMMARY | 2025-02-16 18:29 | XMS_ITS | Clinical Summary ---
Author Organization [facility] Address [address] [place] [address] Care Team Providers Care Melting Furnace Skimmer Name Role Phone Unavailable Primary Care Provider Unavailabl e Source Comments [facility],non-owned Affiliates and Associated Physician Practices is amultiple site organization consisting of ambulatory clinics and hospital sitesin [place], [place], [place] and [place]. This disclosure is being madepursuant to the Care Everywhere program and may not contain all information available regarding this patient. Last updated 18.[facility] Allergies Active Allergy Reactions Criticality Noted Date [...] on file Legal Sex Female 5:43 AM GENERAL PRODUCTION LABORER Gender Identity Not on file Sexual Orientation Not on file Last Filed Vital Signs Vital Sign Reading Time Taken Comments Blood Pressure 124/90 11/02/2020 12:44 PM GENERAL PRODUCTION LABORER Pulse 64 11/02/2020 12:44 PM GENERAL PRODUCTION LABORER Temperature 36.9 C (98.5 F) 11/02/2020 12:44 PM GENERAL PRODUCTION LABORER Respiratory Rate 20 11/02/2020 12:4 4 PM GENERAL PRODUCTION LABORER Oxygen Saturation 99% 11/02/2020 12: 44 PM GENERAL PRODUCTION LABORER Inhaled Oxygen Concentration - - Weight 111.4 kg (245 lb 9.5 oz) 020 12:44 PM GENERAL PRODUCTION LABORER Height 167 cm (5' 5.75 ) 07/29/2020 [...] Positive( A) Negative 07/30/2020 1:29 PM CDT [facility] GC Amplified Probe Positive( A) Negative 07/30/2020 1:29 PM CDT [facility] Microbiology URINE / Unknown Collection / Unknown 07/29/2020 12:01 PM CDT 07/29/2020 12:12 PM CDT Narrative [facility] - 07/30/2020 1:29 PM CDT Results based on detection/no detection of ribosomal RNA by amplified method. Edwin Calloway DO LAB - MICROBIOLOGY ORDERA BLES Final Result [facility] [address] [place], [place] [address], [facility] [phone] from Last 3 Months or Most Recently Relevant to Health Maintenance Insurance [facility] MEDICAID - OUT OF STATE [facility]
--- OUTSIDE RECORDS SUMMARY | 2025-02-16 18:29 | XMS_ITS | Clinical Summary ---
Author Organization [facility] Address [address] [place] [address] Phone Care Team Providers Care Building Guard Deputy Sheriff Name Role Phone Cherelle Smith MD Primary Care Provider [phone] Allergies No known active allergies Medications methylPREDNISol [...] Insurance MEDICAID [employer] Care Teams Building Guard Deputy Sheriff Relationship Specialty Start Date End Date Cherelle Smith MD PCP - General Pediatrics 03/01/16
--- OUTSIDE RECORDS SUMMARY | 2025-02-16 18:29 | XMS_ITS | Clinical Summary ---
Author Organization [facility] Address [address] [address] Phone Care Team Providers Care New Car Inspector Name Role Phone Janette Smith MD Primary Care Provider [phone] Allergies Active Allergy Reactions Criticality Noted Date [...] VACCINE (#1) 2024 Insurance MEDICAID Care Teams New Car Inspector Relationship Specialty Start Date End Date Janette Smith MD [address] [place] [phone] PCP - General Pediatrics 04/18/21
--- OUTSIDE RECORDS SUMMARY | 2025-02-16 18:29 | XMS_ITS | Encounter Summary ---
Author Organization [facility] Address [address] [place] [address] Phone Care Team Providers Care Hog Counter Name Role Phone Marques Graves MD Primary Care Provider [phone] Rhianna Chino MD Primary Care Provider [phone] Encounter Details Date Type Department Care Team (Late st Contact Info) Description 12/09/2022 Documentation [facility]) - [facility] Urology [id number] [place] [address] Medical Office Building [address] [place] [address] Anastasia Cruz Social History Tobacco [...] on file Legal Sex Female 12:21 PM PHOTO MANAGER Gender Identity Female 09/30/2022 1:11 AM PHOTO MANAGER Sexual Orientation Straight 02/06/2023 11 :12 PM [...] COVID: Suspected 11/30/2024 11/30/2024 11/30/2024 6:08 PM PHOTO MANAGER documented as of this encounter Care Teams Hog Counter Relationship Specialty Start Date End Date Marques Graves MD PCP - General Family Medicine 03/04/22 09/02/24 Rhianna Chino MD [address] [place] [id number] PCP - General Obstetrics and Gynecology 09/03/24 documented as of this encounter
--- NOTE | 2025-02-16 18:41 | ED.NAVMDI ---
HPI - Nausea/Vomiting/Diarrhea General Chief complaint: Nausea/Vomiting/Diarrhea Stated complaint: Vomiting, diarrhea x 2 days Time Seen by Provider: 02/16/25 17:30 Source: patient Mode of arrival: ambulatory Limitations: no limitations History of Present Illness HPI Narrative: Patient is a 22-year-old female who presents the ED with report of nausea, vomiting, diarrhea. Patient reports having symptoms for the past 2 days. States she has been able to keep down small amounts of fluid and ate some toast this morning, but has had persistent vomiting throughout the day today. Began feeling lightheaded with movements, which prompted her presentation. Denies bad food exposure, sick contacts. Reports some intermittent cramping throughout her upper abdomen. Denies fevers, rectal bleeding, melena, urinary complaints. Related Data Home Medications ?Medication ?Instructions ?Recorded ?Confirmed ?Last Taken ?Type labetalol 200 mg tablet 200 mg PO DAILY 03/06/24 03/06/24 Unknown History norethindrone (contraceptive) 0.35 0.35 mg PO DAILY 03/06/24 03/06/24 Unknown History mg tablet Allergies Allergy/AdvReac Type Severity Reaction Status Date / Time amoxicillin AdvReac Mild Hives Verified 02/16/25 17:20 clavulanic acid AdvReac Mild Hives Verified 02/16/25 17:20 Review of Systems Review of Systems: All systems reviewed & are unremarkable except as noted in HPI. All systems reviewed & are unremarkable except as noted in HPI and below PMFSH Past Medical History Medical History Vaginal discharge Depression Acute erythematous tonsillitis UTI (urinary tract infection) Ear infection Surgical History Surgical History History of dental surgery Family History Family History Grandparent Diabetes mellitus Hypertension Mother Bipolar 1 disorder Glaucoma Other Breast cancer Social History Social History Smoking status: Never smoker Alcohol intake: never Substance use: current Substance use type: marijuana Lack of Transportation: No Lack of Food: Never True Current Housing: I Have Housing Concerned About Future Housing: No Difficulty Paying Gas/Electric Bills: No Difficulty Paying for Meds: No Currently Unemployed: No Education: High School Diploma/GED Difficulty w/ Childcare or Family Care: No Living arrangements: with family Occupation/Education: occupation 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 HEAD: Normocephalic, atraumatic. RESPIRATORY: Airway patent, respirations nonlabored. Clear to auscultation bilaterally, no rales, rhonchi, wheezing. CARDIOVASCULAR: Regular rate and rhythm without murmurs, rubs, or gallops. ABDOMINAL: Soft, mild tenderness in epigastric region, nondistended. Normoactive BS. MUSCULOSKELETAL: Moves all extremities. No gross deformities. SKIN: Warm, dry, normal color. NEURO: A&O X3. Speech clear. PSYCHIATRIC: Appropriate mood and affect. Normal interaction. Course Vital Signs Vital signs: Vital Signs Temperature 97.6 F 02/16/25 17:27 Pulse Rate 85 02/16/25 17:27 Respiratory Rate 16 02/16/25 17:27 Blood Pressure 101/72 02/16/25 17:27 Pulse Oximetry 100 02/16/25 17:27 Temperature 98.2 F 02/16/25 17:30 Pulse Rate 73 02/16/25 21:16 Respiratory Rate 16 02/16/25 21:16 Blood Pressure 120/83 02/16/25 21:16 Pulse Oximetry 100 02/16/25 21:30 MDM - Nausea/Vomiting/Diarrhea MDM Narrative Medical decision making narrative: Patient presented to ED with 2 day hx of nausea, vomiting, diarrhea. Vital signs stable upon arrival. Blood pressure borderline low. Fluids initiated. Cbc with white blood cell count of 15.4. Mild thrombocytosis. CMP with anion gap of 13. Otherwise stable electrolytes. Stable kidney function. Minimal transaminitis. Appears consistent with previous records. Normal lipase. Normal bilirubin. UA with evidence of possible infection, 51-100 WBC, many squamous cells, 4+ urine bacteria. Sent for cx. Will Tx. CT abd/pelvis obtained and showing fluid in the large bowel, diarrhea versus enteritis. Suspicious for gastroenteritis. Patient is feeling better with supportive therapy. She is able to tolerate p.o. intake. Feel she is safe for discharge home at this time. Will discharge with Zofran, pepcid for home use. Patient is currently . Macrobid for UTI. Advised close follow-up with PCP for further evaluation. Given strict return precautions. Patient is in agreement with plan. Feels comfortable going home. Discharged in stable condition Medical Records Attestation: I reviewed the patient's medical records. Lab Data Attestation: I reviewed the patient's lab results. 02/16/25 17:49 02/16/25 17:49 Labs: Lab Results 02/16/25 02/16/25 02/16/25 Range/Units 17:48 17:49 18:27 WBC 15.4 H (4.5-10.0) K/mm3 RBC 6.14 H (4.2-5.4) M/mm3 Hgb 14.4 (12.0-15.0) g/dL Hct 46.5 (37.0-47.0) % MCV 75.7 L (80-100) fl MCH 23.5 L (26-34) pg MCHC 31.0 L (32-36) g/dl RDW 18.5 H (11.5-14.5) % Plt Count 517 H (150-375) k/mm3 MPV 9.9 (7.4-10.4) fl Immature Gran % (Auto) 0.3 (0-0.5) % Neut % (Auto) 73.2 H (45.5-73.1) % Lymph % (Auto) 16.1 L (18.3-44.2) % [place] % (Auto) 4.5 (2.6-8.5) % Eos % (Auto) 5.7 H (0-4.4) % Baso % (Auto) 0.2 (0.2-1.2) % Lymph # (Auto) 2.47 (0.9-3.2) K/mm3 [place] # (Auto) 0.7 H (0.1-0.6) K/mm3 Eos # (Auto) 0.9 H (0-0.3) K/mm3 Baso # (Auto) 0.0 (0.0-0.1) K/mm3 Abs Immat Gran (auto) 0.05 H (0.00-0.031) K/mm3 Absolute Neuts (auto) 11.2 H (1.3-6.7) K/mm3 Absolute Nucleated RBC 0.000 (0.0-0.012) K/mm3 Nucleated RBC % 0.0 (0.0-0.2) % Sodium 140 (137-145) mmol/L Potassium 3.7 (3.4-5.0) mmol/L Chloride 105 (98-107) mmol/L Carbon Dioxide 22 (22-30) mmol/L Anion Gap 13 H (4-12) mmol/L BUN 16 (7-17) mg/dL Creatinine 0.70 (0.7-1.0) mg/dL Estim Creat Clear Calc 147 ml/min Estimated GFR > 60 (59 - ) Glucose 108 (65-110) mg/dL Calcium 9.2 (8.4-10.2) mg/dL Magnesium 2.0 (1.6-2.3) mg/dL Total Bilirubin 0.5 (0.2-1.3) mg/dL AST 39 H (14-36) U/L ALT 64 H (6-35) U/L Alkaline Phosphatase 137 H (38-126) U/L Total Protein 8.0 (6.3-8.2) g/dL Albumin 4.5 (3.5-5.1) g/dL Lipase 111 (23-300) U/L Urine Color Dark yellow (Yellow) Urine Appearance Cloudy H (Clear) Urine pH 5.5 (5.0-9.0) Ur Specific [place] 1.032 (1.001-1.035) Urine Protein 1+ H (Negative) mg/dL Urine Glucose (UA) Negative (Negative) mg/dL Urine Ketones Negative (Negative) mg/dL Ur Blood (Man) Non-hemolyzed trace H (Negative) Urine Nitrate Negative (Negative) Urine Bilirubin Negative (Negative) Urine Urobilinogen 1.0 (<2.0) mg/dL Leukocyte Esterase Rfl Trace H (Negative) DANY/UL Urine RBC 3-5 H (0-2) /hpf Urine WBC 51-100 H (0-3) /hpf Ur Squamous Epith Cells Many H (Few) /hpf Urine Bacteria 4+ H /hpf Urine Casts 3-5 POC Urine HCG, Qual (Negative) 02/16/25 Range/Units 18:58 WBC (4.5-10.0) K/mm3 RBC (4.2-5.4) M/mm3 Hgb (12.0-15.0) g/dL Hct (37.0-47.0) % MCV (80-100) fl MCH (26-34) pg MCHC (32-36) g/dl RDW (11.5-14.5) % Plt Count (150-375) k/mm3 MPV (7.4-10.4) fl Immature Gran % (Auto) (0-0.5) % Neut % (Auto) (45.5-73.1) % Lymph % (Auto) (18.3-44.2) % [place] % (Auto) (2.6-8.5) % Eos % (Auto) (0-4.4) % Baso % (Auto) (0.2-1.2) % Lymph # (Auto) (0.9-3.2) K/mm3 [place] # (Auto) (0.1-0.6) K/mm3 Eos # (Auto) (0-0.3) K/mm3 Baso # (Auto) (0.0-0.1) K/mm3 Abs Immat Gran (auto) (0.00-0.031) K/mm3 Absolute Neuts (auto) (1.3-6.7) K/mm3 Absolute Nucleated RBC (0.0-0.012) K/mm3 Nucleated RBC % (0.0-0.2) % Sodium (137-145) mmol/L Potassium (3.4-5.0) mmol/L Chloride (98-107) mmol/L Carbon Dioxide (22-30) mmol/L Anion Gap (4-12) mmol/L BUN (7-17) mg/dL Creatinine (0.7-1.0) mg/dL Estim Creat Clear Calc ml/min Estimated GFR (59 - ) Glucose (65-110) mg/dL Calcium (8.4-10.2) mg/dL Magnesium (1.6-2.3) mg/dL Total Bilirubin (0.2-1.3) mg/dL AST (14-36) U/L ALT (6-35) U/L Alkaline Phosphatase (38-126) U/L Total Protein (6.3-8.2) g/dL Albumin (3.5-5.1) g/dL Lipase (23-300) U/L Urine Color (Yellow) Urine Appearance (Clear) Urine pH (5.0-9.0) Ur Specific [place] (1.001-1.035) Urine Protein (Negative) mg/dL Urine Glucose (UA) (Negative) mg/dL Urine Ketones (Negative) mg/dL Ur Blood (Man) (Negative) Urine Nitrate (Negative) Urine Bilirubin (Negative) Urine Urobilinogen (<2.0) mg/dL Leukocyte Esterase Rfl (Negative) DANY/UL Urine RBC (0-2) /hpf Urine WBC (0-3) /hpf Ur Squamous Epith Cells (Few) /hpf Urine Bacteria /hpf Urine Casts POC Urine HCG, Qual Negative (Negative) Imaging Data Attestation: I personally reviewed and interpreted this imaging study as follows: Radiologist's impression: ITS Impressions Abdomen/Pelvis CT 02/16/25 20:26 IMPRESSION: 1. No evidence of appendicitis, diverticulitis or intestinal obstruction. 2. Fluid in the large bowel suggestive of diarrhea versus enteritis. 3. Hepatomegaly. Discharge Plan Discharge Clinical Impression: Gastroenteritis, Dehydration UTI (urinary tract infection) Qualifiers: Urinary tract infection type: acute cystitis Hematuria presence: with hematuria Qualified Code(s): N30.01 - Acute cystitis with hematuria Patient Disposition: Home Condition: Stable Instructions: Antibiotic Form, Dehydration (ED), Urinary Tract Infection in Women (ED), Acute Nausea and Vomiting (ED), Acute Diarrhea (ED) Additional Instructions: Take antibiotics as prescribed for urinary tract infection. Utilize zofran as needed for further nausea. Recommend taking Pepcid daily for acid reflux symptoms. Increase fluid intake. Recommend electrolyte rich fluids, gatorade, pedialyte, body armour. Recommend clear liquids or bland diet until symptoms improve, such as bananas, rice, applesauce, toast, or crackers. Follow up with your primary care doctor for further evaluation. Return to the ED if you experience worsening or severe symptoms, unable to keep down food or drink, severe pain, fevers, rectal bleeding, vomiting blood, or any other symptoms of concern. Patient Language: Slovenian Prescriptions: New ondansetron 4 mg tablet,disintegrating 4 mg PO Q8H PRN (Reason: nausea and vomiting) Qty: 15 0RF nitrofurantoin monohyd/m-cryst 100 mg capsule 100 mg PO Q12H 5 Days Qty: 10 0RF Rx Instructions: must administer with a meal/food famotidine 20 mg tablet 20 mg PO DAILY Qty: 30 0RF No Action labetalol 200 mg tablet 200 mg PO DAILY norethindrone (contraceptive) 0.35 mg tablet 0.35 mg PO DAILY ofloxacin 0.3 % drops 2 drp RIGHT EYE QID 7 Days Qty: 5 0RF Follow-up/Referrals: Matti,Rhianna Simpson MD [Primary Care Provider] - Time of Disposition: 21:21
[2025-02-16 18:46] LABS: Add Urine Microscopic? YES; Appearance Urine Cloudy (Clear); Bacteria Urine 4+ /hpf; Bilirubin Urine Negative (Negative); Blood Urine Non-Hemolyzed Trace (Negative); Color Urine Dark Yellow (Yellow); Glucose Urine UA Negative (Negative); Ketones Urine Negative (Negative); Leukocyte Esterase Ur Trace LEU/UL (Negative); Nitrate Urine Negative (Negative); Protein Urine 1+ mg/dL (Negative); Specific Grav Ur 1.032 (1.001-1.035); Squamous Epithelial Cell Urine Many /hpf (Few); WBC Urine 51-100 /hpf (0-3); pH Urine 5.5 (5.0-9.0)
[2025-02-16 19:00] LABS: BEDSIDEPREGUCG Negative (Negative)
[2025-02-16] MEDS: SODIUM CHLORIDE 0.9% IV 1,000 ML 999 ML IV CONT ×2 (19:10→19:11)
[2025-02-16] MEDS: ONDANSETRON INJ 4 MG/2 ML VIAL IV PUSH (19:11)
[2025-02-16] MEDS: FAMOTIDINE 20 MG/2 ML VIAL IV PUSH (19:11)
--- NOTE | 2025-02-16 19:30 | PC.NURSE ---
Received report from KEHINDE Beltran for continuos of care. Pt AOx4, respirations even and unlabored. Being taken to CT in stretcher by park maintenance technician.
[2025-02-16] MEDS: NITROFURANTOIN MONOHYD MACROCR 100 MG CAP PO (21:14)
[2025-02-16] MEDS: ONDANSETRON HCL ODT 4 MG TABLET PO (21:58)
== END 2025-02-16 22:11 | disposition home or self-care (01) ==
PROVIDERS: Emergency Medicine; Emergency Provider Physician Assistant; PCP Family Medicine
DX: N30.01 Acute cystitis with hematuria (principal); K52.9 Noninfective gastroenteritis and colitis, unspecified; E86.0 Dehydration; F32.A Depression, unspecified; Z87.440 Personal history of urinary (tract) infections
CPT/HCPCS: 36415; 74177; 80053; 81001; 81025; 83690; 83735; 85025; 87086; 96361; 96374; 96375; 99285; A9270; J2405; J7030; Q9967

== ENCOUNTER 2025-06-12 21:49 | Emergency (ER) | payer OTHER, SELFPAY ==
[2025-06-12 21:51] VITALS: BP 137/96; PULSE 74; RESP 16; TEMP 36.7; O2SAT 100
--- OUTSIDE RECORDS SUMMARY | 2025-06-12 21:51 | XMS_ITS | Clinical Summary ---
Author Organization [facility] [employer] Address [address] [place] [address] Care Team Providers Care Job Hand Name Role Phone Unavailable Primary Care Provider Unavailabl e Source Comments [facility] [employer],non-owned Affiliates and Associated Physician Practices is amultiple site organization consisting of ambulatory clinics and hospital sitesin [place], [place], [place] and [place]. This disclosure is being madepursuant to the Care Everywhere program and may not contain all information available regarding this patient. Last updated 18.[facility] [employer] Allergies Active Allergy Reactions Criticality Noted Date [...] on file Legal Sex Female 5:43 AM HISTOLOGY TECHNICIAN Gender Identity Not on file Sexual Orientation Not on file Last Filed Vital Signs Vital Sign Reading Time Taken Comments Blood Pressure 124/90 11/02/2020 12:44 PM HISTOLOGY TECHNICIAN Pulse 64 11/02/2020 12:44 PM HISTOLOGY TECHNICIAN Temperature 36.9 C (98.5 F) 11/02/2020 12:44 PM HISTOLOGY TECHNICIAN Respiratory Rate 20 11/02/2020 12:4 4 PM HISTOLOGY TECHNICIAN Oxygen Saturation 99% 11/02/2020 12: 44 PM HISTOLOGY TECHNICIAN Inhaled Oxygen Concentration - - Weight 111.4 kg (245 lb 9.5 oz) 020 12:44 PM HISTOLOGY TECHNICIAN Height 167 cm (5' 5.75) 07/29/2020 10: 23 AM CDT Body Mass [...] season) 2024 DEPRESSION SCREENING 11/03/2024 INFLUENZA VACCINE (#1) 2025 ZOSTER VACCINE (1 of 2) 2052 [...] Positive( A) Negative 07/30/2020 1:29 PM CDT [facility] GC Amplified Probe Positive( A) Negative 07/30/2020 1:29 PM CDT [facility] Microbiology URINE / Unknown Collection / Unknown 07/29/2020 12:01 PM CDT 07/29/2020 12:12 PM CDT Narrative [facility] - 07/30/2020 1:29 PM CDT Results based on detection/no detection of ribosomal RNA by amplified method. Edwin Calloway DO LAB - MICROBIOLOGY ORDERA BLES Final Result [facility] [address] [place], [place] [address], [facility] [phone] from Last 3 Months or Most Recently Relevant to Health Maintenance Insurance [facility] MEDICAID - OUT OF STATE [facility]
--- OUTSIDE RECORDS SUMMARY | 2025-06-12 21:51 | XMS_ITS | Encounter Summary ---
Author Organization [facility] Address [address] [place] [address] Phone Care Team Providers Care Sales Exec Name Role Phone Marques Graves MD Primary Care Provider [phone] Rhianna Chino MD Primary Care Provider [phone] Encounter Details Date Type Department Care Team (Late st Contact Info) Description 12/09/2022 Documentation [facility] - [facility] Urology [id number] [place] [address] Medical Office Building [address] [place] [address] Anastasia Cruz Social History Tobacco [...] on file Legal Sex Female 12:21 PM SITE SAFETY REPRESENTATIVE Gender Identity Female 09/30/2022 1:11 AM SITE SAFETY REPRESENTATIVE Sexual Orientation Straight 02/06/2023 11 :12 PM [...] COVID: Suspected 11/30/2024 11/30/2024 11/30/2024 6:08 PM SITE SAFETY REPRESENTATIVE documented as of this encounter Care Teams Sales Exec Relationship Specialty Start Date End Date Marques Graves MD PCP - General Family Medicine 03/04/22 09/02/24 Rhianna Chino MD [address] [place] [id number] PCP - General Obstetrics and Gynecology 09/03/24 documented as of this encounter
--- OUTSIDE RECORDS SUMMARY | 2025-06-12 21:51 | XMS_ITS | Clinical Summary ---
Author Organization [facility] Address [address] [place] [address] Care Team Providers Care End Packer Name Role Phone Rhianna Chino MD Primary Care Provider [phone] Allergies Active Allergy Reactions Criticality Noted Date Comments Amoxicillin Hives,Urticaria High 05/04/2020 Amoxicillin-Pot Clavulanate Hives,Urticaria High 12/2019 Banana Swollen tongue High 11/25/2024 Cephalexin Itching Low 05/08/2024 Medications vitamin ferrous fumarate-folic () 28 mg iron- 800 mcg tablet Take 1 tablet by mouth daily 30 tablet 11 05/08/20 24 Active docusate sodium (COLACE) 100 mg capsule [...] (constipation) 289 g 12/23/19 25 Active lactic bwrb-vlelbj-kwffkv ium (Phexxi) 1.8-1-0.4 % gel vaginal gel [...] 28 tablet 12 02/04/20 25 026 Active clindamycin (CLEOCIN T) 1 % gel Apply topically 2 (two) times a day 30 g 1 05/26/20 25 Active Active Problems Problem Noted Date Diagnosed Date GI symptoms 05/26/2025 Overview (05/26/2025): -Intermittent abdominal pain, vomiting and diarrhea for over 3 months -Taking advil and tylenol frequently for tooth pain, discussed this is likely cause (provided list of dental resources to patient today) -Recommend decrease intake of NSAID and acetaminophen, and eat bland diet -Requesting referral to GI- sent today Folliculitis 05/26/2025 Overview (05/26/2025): Bilateral, in between breasts- likely from sweat/friction Rx clinda gel Consider derm referral if no improvement Encounter for routine follow-up 01/05 Overview (02/03/2025): [...] female at 38w1d who is dated by L=1st and is being admitted for an induction [...] # Disposition: Follow up task sent to [facility] scheduling pool for appointments in 2 and 6 weeks. They are enrolled in remote blood pressure monitoring for their BP check. DC home today. Service Coverage These phones are service phones and carried 26/05 in house: R1 (first call) [phone] R1 alt (second call) [phone] R4 (Chief) [phone] Transverse lie of fetus 12/09/2024 Overview (12/09/2024): [...] patch, ring, injection, implant, IUD. 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 CMP & UPC pending. Provided [place] precautions for PreE s/s. [x] Baseline Plt: [...] cream: apply three days per week (eg, Afujxj-Ubcuoqukm-Wpswum) for up to 16 weeks. Wash hands [...] in Assessment & Plan (10/08/2022 12:04 PM GEOSPATIAL ANALYST): Lab Results Component Value Date CHOL 215 [...] day Assessment & Plan (10/08/2022 12:01 PM GEOSPATIAL ANALYST): Stable - continue current regimen Assessment & [...] [facility] see if we [...] in 3 days if still symptomatic. Avoid Tool until all medication complete. Avoid use of bubble baths, perfumed soaps, lotions in vagina. 07/26: Encouraged to take second dose of diflucan. Notify provider if symptoms continue. with inconclusive viability 05/10/2024 06/21/2024 Overview (05/17/2024): Telephone Number Relationship Voicemail Kennedy [phone] (home) Home Yes [] PUL Card Given [...] insurance? If not, make clinic appointment for [place] medicaid specialist OR refer to [place] medicaid office. > has insurance [x] Signed out with attending and okay to remove from beta book. Attending Name: Barb Bacterial vaginosis 03/24/2024 06/21/20 Overview (10/28/2023): -Rx Flagyl 500mg take 1 tablet twice daily x 7 days. -Avoid Alcohol while taking. -Rx Fluconazole 150 mg take 1 tablet today/after BV treatment PRN, repeat PRN -Avoid Tool until after completion of all medication. -Discussed [...] # Disposition: Follow up task sent to [facility] scheduling pool. Desires discharge home today. Leukocytes [...] 06/24/2023 Assessment & Plan (11/08/2022 9:02 PM GEOSPATIAL ANALYST): Self swab done for vaginitis panel. Results came back positive for BV. Patient made aware and treated with Flagyl. Painful urination 11/08/2022 06/24/2023 Assessment & Plan (11/08/2022 9:04 PM GEOSPATIAL ANALYST): Urine sent for culture. Treated for UTI [...] counseling. Assessment & Plan (12/31/2022 11:15 AM GEOSPATIAL ANALYST): Wt Readings from Last 3 Encounters: 12/31/22 [...] counseling. Assessment & Plan (10/08/2022 12:00 PM GEOSPATIAL ANALYST): Wt Readings from Last 3 Encounters: 10/08/22 [...] Encounters Date Type Department Care Team Description 05/26/2025 11:30 AM CDT Office Visit Obstetrics and Gynecology Clinic [address] [facility] 3rd Floor [address] [place] [address] Noreen uRcker NP Health care maintenance (Primary Dx); GI symptoms; Folliculitis 04/08/2025 Telephone Obstetrics and Gynecology Clinic [address] [facility] 3rd [address] [place] [address] Monique Fox from Last 3 Months Immunizations Immunization Administration [...] to Q uit: Not Asked; Counseling Given: No [facility] Utilities Answer Date Recorded In the past 12 months has e electric, gas, oil, or water company threatened to shut off services in your [...] No 05/21/2024 Social Connection and Isolation Panel Answer Date Recorded In a typical week, how many times do you talk on the phone with family, friends, or neighbors? Three times a week 12/23/2024 How often do you get togethe r with friends or relatives? Three times a week 12/23/2024 How often do you attend chur ch or pentecostal services? Never 12/23/2024 Do you belong to any clubs o r organizations such as catholic groups, unions, fraternal or athletic groups, or [...] PHQ-9) 0 12/27/2024 [facility] - Occupational Stress Questionnaire Answer Date [...] the money to buy more. Never true 05/26/20 25 Within the past 12 months, t he food you bought just didn't last and you didn't have money to get more. Never true 05/26/2025 PRAPARE - Transportation Answer Date Re corded [...] in a intermediate (including now)? No 12/01/2023 [place] Depression Scale Answer Date Recorded [place] Depression Scale Total 6 02/03/2025 The thought [...] time in the past 12 m [facility], were you homeless or living in a [...] on file Legal Sex Female 12:21 PM GEOSPATIAL ANALYST Gender Identity Female 09/30/2022 1:11 AM GEOSPATIAL ANALYST Sexual Orientation Straight 02/06/2023 11 :12 PM CDT Occupation Industry Job Start Date Job End Date unemployed Not on file Not on file Not on file Obstetrics History Para Term AB IAB SAB Ectopic Multiple Livin g Live Births 2 2 2 0 0 0 0 0 0 2 2 Date Outcome GA Total Labor Labor/2nd/3rd Weight Sex Type Anes PTL Yolanda A1 A5 Name Clin 2023 Term 39w 0d 12h 40m 11h 29m/1h 08m/0h 03m 2.82 kg (6 lb 3.5 oz) F Vagina l Epidur al N Livin g 8 9 Eleno Ferro ea, MD Complications:None Delivery Location:[facility] Main C ampus ([facility] 58LD) 2024 Term 38w 1d 10h 44m 10h 02m/0h 37m/0h 05m 3.59 kg (7 lb 14.6 oz) F Vagina l Epidur al N Livin g 7 7 Jennie Manzo MD Complications:None Delivery Location:[facility] Main C ampus ([facility]) Last Filed Vital Signs Vital Sign Reading Time Taken Comments Blood Pressure 142/81 05/26/2025 11:30 AM CDT Pulse 79 05/26/2025 11:30 AM CDT Temperature 36.7 C (98.1 F) 02/03/2025 11:04 AM CDT Respiratory Rate 18 05/26/2025 11:30 AM CDT Oxygen Saturation 98% 05/26/2025 11:30 AM CDT Inhaled Oxygen Concentration - - Weight 110.7 kg (244 lb) 05/26/2025 11:30 AM CDT Height 167.6 cm (5' 6) 12/22/2024 8:19 AM GEOSPATIAL ANALYST Body Mass Index 39.38 12/22/2024 8:19 AM GEOSPATIAL ANALYST Plan of Treatment Health Maintenance Due Date Last Done Comments Pneumococcal vaccine <65 (1 of 1 - PPSV23, PCV20, or PCV21) 2008 06/29/2004, 06/27/2003, 04/25/2003, Additional history exists Meningococcal B Vaccine (1 o f 2 - Standard) 2018 Regular Well Visit/Exam 18-64 07/29/2024 07/29/2023 Cervical Cancer Screening 01/29/2025 01/30/2024 Influenza Vaccine (#1) 2025 8, 08/11/2017, 11/07/2016, Additional history exists Chlamydia and [...] Procedure Name Priority Date/Time Associated Diagnosis Comments N. GONORRHOEAE/C. TRACHOMATIS AMPLIFICATION Routine 12/09/2024 2:28 PM GEOSPATIAL ANALYST , unspecified gestational age HEPATITIS C ANTIBODY Routine 05/21/2024 12:00 PM CDT Encounter for supervision of normal , antepartum, unspecified PAP ONLY Routine 01/30/2024 11:27 AM CDT Encounter for routine follow-up from Last 3 Months or Most Recently Relevant to Health Maintenance Results * N. gonorrhoeae/C. trachomatis Amplification Vaginal (12/09/2024 2:28 PM GEOSPATIAL ANALYST) C. trachomatis Not Detected [facility] N. gonorrhoeae Not Detected MEHNAZ [facility] Comment: Interpretive Data This assay detects Chlamydia trachomatis and Neisseria gonorrhoeae by nucleic acid amplification testing (NAAT). This assay has been cleared by the [place] Food and Drug administration. The performance characteristics of this test have been verified by the [facility] Molecular Infectious Disease laboratory. The performance characteristics of this test have not been evaluated in individuals less than 14 years of age. Current Interpretive Data was last revised on 2023. Vaginal (None) 12/09/2024 2: 28 PM GEOSPATIAL ANALYST 12/09/2024 2:34 PM GEOSPATIAL ANALYST Noreen Rucker TOLL COLLECTOR SUPERVISOR LAB MICROBIOLOGY - GENERAL ORDERABLES Final Result [facility] Department [place] [address] [facility] * Hepatitis C antibody Blood (05/21/2024 12:00 PM CDT) Hep C Ab Nonreactive Nonreactive Comment:Antibodies to HCV no t detected. Does NOT exclude the possibility of recent exposure to HCV. Current interpretive data was last revised on 22 Blood 05/21/2024 12:0 0 PM CDT 05/21/2024 12:14 PM CDT Melanie Almeida TOLL COLLECTOR SUPERVISOR LAB MICROB IOLOGY - GENERAL ORDERABLES Edited Result - Final MEHNAZ [facility] Department [place] [address] * Pap Only (Cytology Component) (01/30/2024 11:27 AM CDT) Thin prep (Pap test) 01/30/2024 11:27 AM CDT 01/30/2024 2:16 PM CDT Narrative PATHOLOGY [facility] - 02/06/2024 1:57 PM CDT EPIC results best viewed via link to PDF [facility] Tricia SaenzPito [facility] [place] [address] Note to Patients: This report may contain [...] Gender: F : 2000 (Age: 23) Address: [address] [place] [address] Hospital #: [id number] Service: MANUFACTURING ENGINEER MACHINING Location: Patient Type: [facility] SPECIMEN Taken: 01/30/2024 Received: 01/30/2024 Accessioned: 02/03/2024 [...] clinical information and biopsy results as indicated. [facility] Clinical Laboratory Improvement Amendments (CLIA) mandate that cytologic and histologic results be correlated for laboratory quality liaison & improvement standards. FOR ALL HIGH-GRADE CASES [...] by the Surgical Pathology Department at [facility] as part of an ongoing quality eng program and in compliance with federally mandated [...] by the Surgical Pathology Department of [facility]. It has not been cleared or approved by the U. S. Food and Drug Administration. Noreen Rucker NP LAB CYTOLOGY ORDERABLES Fin al Result PATHOLOGY [facility] 3rd Floor [place], [place] [phone] from Last 3 Months or Most Recently Relevant to Health Maintenance Insurance [facility] Advance Directives For more information, please contact: [phone] * Full Code (Latest Code Status on [...] in case of cardiopulmonary arrest Care Teams End Packer Relationship Specialty Start Date End Date Rhianna Chino MD [address] [place] [address] PCP - General Obstetrics and Gynecology 09/03/24
--- OUTSIDE RECORDS SUMMARY | 2025-06-12 21:51 | XMS_ITS | Clinical Summary ---
Author Organization [facility] Address [address] [place] [address] Phone Care Team Providers Care Nurse Name Role Phone Janette Smith MD Primary Care Provider [phone] Allergies Active Allergy Reactions Criticality Noted Date [...] 12:10 PM CDT Height 167.6 cm (5' 6) 04/18/2021 12:10 PM CDT Body Mass Index [...] 2023 PAP SMEAR 2023 INFLUENZA VACCINE (#1) 2025 Insurance MEDICAID Care Teams Nurse Relationship Specialty Start Date End Date Janette Smith MD [address] [place] [phone] PCP - General Pediatrics 04/18/21
--- OUTSIDE RECORDS SUMMARY | 2025-06-12 21:51 | XMS_ITS | Clinical Summary ---
Author Organization [facility] Address [address] [place] [address] Phone Care Team Providers Care Binder Roller Name Role Phone Rhianna Chino MD Primary Care Provider [phone] Allergies No known active allergies Medications methylPREDNISol [...] 100 mg by mouth nightly. 6 Active Encounters Date Type Department Care Team Description 04/11/2025 6:56 AM CDT - 04/11/2025 11:59 PM CDT [facility] [address] [place] [address] Rhianna Chino MD Discharge Disposition: Discharged to home or Selfcare 04/11/2025 Travel 03/17/2025 Transcribe Orders [facility] Scheduling [address] [place] [address] Rhianna Chino MD Calculus of gallbladder without cholecystitis without obstruction (Primary Dx) from Last 3 Months Social History Tobacco Use Types Packs/Day Years [...] 2 - Standard) 2018 Pap Smear 2023 SARS-COV-2 Immunization ( season) 2024 Influenza Immunization (#1) 07/04/202507/05, 08/11/2017, 11/07/2016, Additional history exists Pneumococcal Immunization Combined Aged Out 06/29/2004, 06/27/2003, 04/25/2003, Additional history exists No longer eligible based on patient's age to complete this topic Hepatitis A Immunization Discontinued 006, 02/20/2005, 02/21/2004 Measles Mumps Rubella (MMR) Immunization Discontinued 03/02/2008, 12/23/2003 Polio (IPV) Immunization Discontinued 008, 03/21/2004, 04/25/2003, Additional history exists Varicella Immunization Discontinued 4, 03/02/2008, 12/23/2003 Human Papillomavirus (HPV) Immunization Completed 10/14/2014, 06/13/2014, 04/12/2014 Meningococcal Immunization (ACWY) Completed 08/02/2019, 04/12/2014 Hepatitis B Immunization Completed 024, 06/27/2003, 02/21/2003, Additional history exists DTaP/Tdap/Td Immunization Discontinued 2023, 10/14/2023, 04/12/2014, Additional history exists TdaP Immunization Completed 10/13/2024, , 04/12/2014 Respiratory Syncytial Virus (RSV) Immunization (Adult) Completed 11/11/2024 Rotavirus Immunization Aged Out No lo nger eligible based on patient's age to complete this topic Procedures Procedure Name Priority Date/Time Associated Diagnosis Comments US ABDOMEN LIMITED LEVEL 3 THREE ORGAN Routine 04/11/2025 7:16 AM CDT Calculus of gallbladder without cholecystitis without obstruction from Last 3 Months Results * US ABDOMEN LIMITED LEVEL 3 THREE ORGAN (04/11/2025 7:16 AM CDT) Anatomical Region Laterality Modality Abdomen N/A Ultrasound 04/20/2025 4:09 PM CDT Impressions 04/20/2025 4:12 PM CDT IMPRESSION: 1. Gallbladder is partially contracted. No definite acute finding. No evidence of cholelithiasis.. Narrative 04/20/2025 4:12 PM CDT EXAM DESCRIPTION: US ABDOMEN LIMITED LEVEL 3 THREE ORGAN REASON FOR STUDY: CHOLECYSITITS TECHNIQUE: Ultrasound of the right upper quadrant of the abdomen was performed with grayscale and color doppler. COMPARISON: None FINDINGS: PANCREAS: Visualized portions of the pancreas are within normal limits. Portions of the pancreatic body and tail are obscured due to bowel gas. LIVER: The liver appears normal in echotexture and echogenicity. No focal lesion identified. The main portal vein is patent with antegrade flow. GALLBLADDER: The gallbladder appears contracted no cholelithiasis. No gallbladder wall thickening or pericholecystic fluid. No positive sonographic [place] sign reported. Gallbladder wall measures 0.4 cm. BILIARY: There is no intrahepatic or extrahepatic biliary ductal dilatation. Common bile duct measures 0.4 cm in diameter. RIGHT KIDNEY: Normal size. Normal echogenicity. No solid mass or cyst. No hydronephrosis. Measures 10.6 x 4.2 x 4.7 cm in length. OTHER: No other significant findings. THIS IS AN ELECTRONICALLY VERIFIED FINAL REPORT 04/20/2025 4:09 PM - Electronically signed by Juan Carlos JUSTICE: VINH Report ID: [id number] Reading Location: [id number] Procedure Note Juan Carlos Campo MD - 04/20/2025 EXAM DESCRIPTION: US ABDOMEN LIMITED LEVEL 3 THREE ORGAN REASON FOR STUDY: CHOLECYSITITS TECHNIQUE: Ultrasound of the right upper quadrant of the abdomen was performed with grayscale and color doppler. COMPARISON: None FINDINGS: PANCREAS: Visualized portions of the pancreas are within normal limits. Portions of the pancreatic body and tail are obscured due to bowel gas. LIVER: The liver appears normal in echotexture and echogenicity. No focal lesion identified. The main portal vein is patent with antegrade flow. GALLBLADDER: The gallbladder appears contracted no cholelithiasis. No gallbladder wall thickening or pericholecystic fluid. No positive sonographic [place] sign reported. Gallbladder wall measures 0.4 cm. BILIARY: There is no intrahepatic or extrahepatic biliary ductal dilatation. Common bile duct measures 0.4 cm in diameter. RIGHT KIDNEY: Normal size. Normal echogenicity. No solid mass or cyst. No hydronephrosis. Measures 10.6 x 4.2 x 4.7 cm in length. OTHER: No other significant findings. THIS IS AN ELECTRONICALLY VERIFIED FINAL REPORT 04/20/2025 4:09 PM - Electronically signed by Juan Carlos Campo M.D. RW: VINH Report ID: [id number] Reading Location: [id number] IMPRESSION: 1. Gallbladder is partially contracted. No definite acute finding. No evidence of cholelithiasis.. Rhianna Chino MD [facility] ORDERABLES Final Resul t from Last 3 Months Insurance MEDICAID [facility] [employer] MEDICAID [employer] Care Teams Binder Roller Relationship Specialty Start Date End Date Rhianna Chino MD [address] [place] [id number] PCP - General Family Medicine 03/22/25
--- OUTSIDE RECORDS SUMMARY | 2025-06-12 21:51 | XMS_ITS | Continuity of Care Document ---
Author Organization [facility] Address [address] [place] [address] Phone Care Team Providers Care Portfolio Manager Name Role Phone Arguelles OD, Jett Unavailable Unavailable Procedures Procedure Date Eye Exam & Treatment Refraction Advance Directives Directive Yes / No Effective Date File Name No Information Encounters Encounter Description Practice Location Reason(s) For Visit Diagnoses Date Provider Providers Copied on Encounter [facility], [address], [place], [place], [id number], [place] tel:[phone] SEC [facility] No Information 2-200 9 Arguelles OD Jett. [address] [facility] , [address], [place], [address], [place]. tel:[phone] Family History Family Member Type Diagnosis Age At Onset No Information Payers Payer name Insurance type Covered alliance party ID Authoriza tion(s) Medicaid [facility] [id number] Social History Type Description Quantity Date Captured [...]
--- OUTSIDE RECORDS SUMMARY | 2025-06-12 22:17 | XMS_ITS | Clinical Summary ---
Author Organization [facility] Medical Office Building B Address [address] [place] [address] Care Team Providers Care Batcher Operator Name Role Phone Rhianna Chino MD Primary Care Provider [phone] Allergies Active Allergy Reactions Criticality Noted Date [...] (constipation) 289 g 12/23/19 25 Active lactic xvop-ixakhv-bkfsth ium (Phexxi) 1.8-1-0.4 % gel vaginal gel [...] # Disposition: Follow up task sent to [facility] scheduling pool for appointments in 2 and 6 weeks. They are enrolled in remote blood pressure monitoring for their BP check. DC home today. Service Coverage These phones are service phones and carried 26/05 in house: R1 (first call) [phone] R1 alt (second call) [phone] R4 (Chief) [phone] Transverse lie of fetus 12/09/2024 Overview (12/09/2024): [...] patch, ring, injection, implant, IUD. 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 Wash hands [...] in Assessment & Plan (10/08/2022 12:04 PM GROCERY CLERK STOCKING): Lab Results Component Value Date CHOL 215 [...] day Assessment & Plan (10/08/2022 12:01 PM GROCERY CLERK STOCKING): Stable - continue current regimen Assessment & [...] [facility] and see if we [...] in 3 days if still symptomatic. Avoid Epes until all medication complete. Avoid use of bubble baths, perfumed soaps, lotions in vagina. 07/26: Encouraged to take second dose of diflucan. Notify provider if symptoms continue. with inconclusive viability 05/10/2024 06/21/2024 Overview (05/17/2024): Telephone Number Relationship Voicemail Kennedy [phone] (home) Home Yes [] PUL Card Given [...] insurance? If not, make clinic appointment for [place] specialist OR refer to [place] office. > has insurance [x] Signed out with attending and okay to remove from beta book. Attending Name: Barb Bacterial vaginosis 03/24/2024 06/21/20 Overview (10/28/2023): -Rx Flagyl 500mg take 1 tablet twice daily x 7 days. -Avoid Alcohol while taking. -Rx Fluconazole 150 mg take 1 tablet today/after BV treatment PRN, repeat PRN -Avoid Epes until after completion of all medication. -Discussed [...] # Disposition: Follow up task sent to [facility] scheduling pool. Desires discharge home today. [...] 06/24/2023 Assessment & Plan (11/08/2022 9:02 PM GROCERY CLERK STOCKING): Self swab done for vaginitis panel. Results came back positive for BV. Patient made aware and treated with Flagyl. Painful urination 11/08/2022 06/24/2023 Assessment & Plan (11/08/2022 9:04 PM GROCERY CLERK STOCKING): Urine sent for culture. Treated for UTI [...] counseling. Assessment & Plan (12/31/2022 11:15 AM GROCERY CLERK STOCKING): Wt Readings from Last 3 Encounters: 12/31/22 [...] counseling. Assessment & Plan (10/08/2022 12:00 PM GROCERY CLERK STOCKING): Wt Readings from Last 3 Encounters: 10/08/22 [...] Office Visit Obstetrics and Gynecology Clinic [address] [facility] 3rd Floor [address] [place] [address] Noreen Rucker NP Health care maintenance (Primary Dx); GI symptoms; Folliculitis 04/08/2025 Telephone Obstetrics and Gynecology Clinic [address] [facility] 3rd Floor [address] [place] [address] Monique Fox from Last 3 Months Immunizations [...] Q uit: Not Asked; Counseling Given: No [facility] Utilities Answer Date Recorded In the [...] often do you attend chur ch or roman catholic services? Never 12/23/2024 Do you belong to any clubs o r organizations such as voodoo groups, unions, fraternal or athletic groups, or [...] staff should administer the PHQ-9) 0 12/27/2024 [facility] - Occupational Stress Questionnaire Answer Date [...] place to sleep or slept in a custodial (including now)? No 12/01/2023 Hackberry Depression Scale Answer Date Recorded Hackberry Depression Scale Total 6 02/03/2025 The thought [...] any time in the past [address] [facility], were you homeless or living in a custodial (including now)? No 12/23/2024 Personal Safety Answer [...] on file Legal Sex Female 12:21 PM GROCERY CLERK STOCKING Gender Identity Female 09/30/2022 1:11 AM GROCERY CLERK STOCKING Sexual Orientation Straight 02/06/2023 11 :12 PM [...] 9 Eleno Ferro ea, MD Complications:None Delivery Location:[facility] Main C ampus ([facility] 58LD) 2024 Term 38w 1d 10h 44m 10h 02m/0h 37m/0h 05m 3.59 kg (7 lb 14.6 oz) F Vagina l Epidur al N Livin g 7 7 Jennie Manzo MD Complications:None Delivery Location:[facility] Main C ampus ([facility] 58LD) Last Filed Vital Signs Vital Sign [...] 167.6 cm (5' 6) 12/22/2024 8:19 AM GROCERY CLERK STOCKING Body Mass Index 39.38 12/22/2024 8:19 AM GROCERY CLERK STOCKING Plan of Treatment Health Maintenance Due Date [...] GONORRHOEAE/C. TRACHOMATIS AMPLIFICATION Routine 12/09/2024 2:28 PM GROCERY CLERK STOCKING , unspecified gestational age HEPATITIS C ANTIBODY Routine 05/21/2024 12:00 PM CDT Encounter for supervision of normal , antepartum, unspecified PAP ONLY Routine 01/30/2024 11:27 AM CDT Encounter for routine follow-up from Last 3 Months or Most Recently Relevant to Health Maintenance Results * N. gonorrhoeae/C. trachomatis Amplification Vaginal (12/09/2024 2:28 PM GROCERY CLERK STOCKING) C. trachomatis Not Detected [facility] N. gonorrhoeae Not Detected [facility] Comment: Interpretive Data This assay detects Chlamydia trachomatis and Neisseria gonorrhoeae by nucleic acid amplification testing (NAAT). This assay has been cleared by the [place] Food and Drug administration. The performance characteristics of this test have been verified by the [facility] Molecular Infectious Disease laboratory. The performance characteristics of this test have not been evaluated in individuals less than 14 years of age. Current Interpretive Data was last revised on 2023. Vaginal (None) 12/09/2024 2: 28 PM GROCERY CLERK STOCKING 12/09/2024 2:34 PM GROCERY CLERK STOCKING Noreen Rucker GROUND WOOD SUPERVISOR LAB MICROBIOLOGY - GENERAL ORDERABLES Final Result [facility] Department [place] [address] [facility] * Hepatitis C antibody Blood (05/21/2024 12:00 PM CDT) Hep C Ab Nonreactive Nonreactive Comment:Antibodies to HCV no t detected. Does NOT exclude the possibility of recent exposure to HCV. Current interpretive data was last revised on 22 Blood 05/21/2024 12:0 0 PM CDT 05/21/2024 12:14 PM CDT Melanie Almeida GROUND WOOD SUPERVISOR LAB MICROB IOLOGY - GENERAL ORDERABLES Edited Result - Final [facility] Department [place] [address] * Pap Only (Cytology Component) (01/30/2024 11:27 AM CDT) Thin prep (Pap test) 01/30/2024 11:27 AM CDT 01/30/2024 2:16 PM CDT Narrative PATHOLOGY [facility] - 02/06/2024 1:57 PM CDT EPIC results best viewed via link to PDF [facility] Tricia SaenzPito Barby [facility] [place] [address] Note to Patients: This report may contain [...] Gender: F : 2000 (Age: 23) Address: [address] [place] [address] Hospital #: [id number] Service: PM TECHNICIAN Location: Patient Type: [facility] SPECIMEN [...] clinical information and biopsy results as indicated. [facility] Clinical Laboratory Improvement Amendments (CLIA) mandate that cytologic and histologic results be correlated for laboratory senior manager quality assurance & improvement standards. FOR ALL HIGH-GRADE CASES [...] determined by the Surgical Pathology Department at [facility] as part of an ongoing quality control clerk program and in compliance with federally mandated [...] determined by the Surgical Pathology Department of [facility]. It has not been cleared or approved by the U. S. Food and Drug Administration. Noreen Rucker NP LAB CYTOLOGY ORDERABLES Fin al Result PATHOLOGY [facility] 3rd Floor [place], [place] [phone] from Last 3 Months or Most Recently Relevant to Health Maintenance Insurance [facility] Advance Directives For more information, please contact: [phone] * Full Code (Latest Code Status on [...] in case of cardiopulmonary arrest Care Teams Batcher Operator Relationship Specialty Start Date End Date Rhianna Chino MD [address] [place] [address] PCP - General Obstetrics and Gynecology 09/03/24
--- OUTSIDE RECORDS SUMMARY | 2025-06-12 22:17 | XMS_ITS | Encounter Summary ---
Author Organization [facility] Address [address] [place] [address] Phone Care Team Providers Care Medical Office Technician Name Role Phone Marques Graves MD Primary Care Provider [phone] Rhianna Chino MD Primary Care Provider [phone] Encounter Details Date Type Department Care Team (Late st Contact Info) Description 12/09/2022 Documentation [facility]) - [facility] Urology [id number] [place] [address] Medical Office Building [address] [place] [address] Anastasia Cruz Social History Tobacco [...] on file Legal Sex Female 12:21 PM GIG TENDER Gender Identity Female 09/30/2022 1:11 AM GIG TENDER Sexual Orientation Straight 02/06/2023 11 :12 PM [...] COVID: Suspected 11/30/2024 11/30/2024 11/30/2024 6:08 PM GIG TENDER documented as of this encounter Care Teams Medical Office Technician Relationship Specialty Start Date End Date Marques Graves MD PCP - General Family Medicine 03/04/22 09/02/24 Rhianna Chino MD [address] [place] [address] PCP - General Obstetrics and Gynecology 09/03/24 documented as of this encounter
--- OUTSIDE RECORDS SUMMARY | 2025-06-12 22:17 | XMS_ITS | Clinical Summary ---
Author Organization [facility] [employer] Address [address] [place] [address] Care Team Providers Care Gi Technician Name Role Phone Unavailable Primary Care Provider Unavailabl e Source Comments [facility] [employer]non-owned Affiliates and Associated Physician Practices is amultiple site organization consisting of ambulatory clinics and hospital sitesin [place], [place], [place] and [place]. This disclosure is being madepursuant to the Care Everywhere program and may not contain all information available regarding this patient. Last updated 18.[facility] [employer] Allergies Active Allergy Reactions Criticality Noted Date [...] on file Legal Sex Female 5:43 AM ACCOUNT UNDERWRITER Gender Identity Not on file Sexual Orientation Not on file Last Filed Vital Signs Vital Sign Reading Time Taken Comments Blood Pressure 124/90 11/02/2020 12:44 PM ACCOUNT UNDERWRITER Pulse 64 11/02/2020 12:44 PM ACCOUNT UNDERWRITER Temperature 36.9 C (98.5 F) 11/02/2020 12:44 PM ACCOUNT UNDERWRITER Respiratory Rate 20 11/02/2020 12:4 4 PM ACCOUNT UNDERWRITER Oxygen Saturation 99% 11/02/2020 12: 44 PM ACCOUNT UNDERWRITER Inhaled Oxygen Concentration - - Weight 111.4 kg (245 lb 9.5 oz) 020 12:44 PM ACCOUNT UNDERWRITER Height 167 cm (5' 5.75) 07/29/2020 10: [...] Positive( A) Negative 07/30/2020 1:29 PM CDT [facility] MICROBIOLOGY GC Amplified Probe Positive( A) Negative 07/30/2020 1:29 PM CDT [facility] MICROBIOLOGY Microbiology URINE / Unknown Collection / Unknown 07/29/2020 12:01 PM CDT 07/29/2020 12:12 PM CDT Narrative [facility] MICROBIOLOGY - 07/30/2020 1:29 PM CDT Results based on detection/no detection of ribosomal RNA by amplified method. Edwin Calloway DO LAB - MICROBIOLOGY ORDERA BLES Final Result [facility] MICROBIOLOGY [address] [place], [place] [address], [facility] [phone] from Last 3 Months or Most Recently Relevant to Health Maintenance Insurance [facility] MEDICAID - OUT OF STATE [facility]
--- OUTSIDE RECORDS SUMMARY | 2025-06-12 22:17 | XMS_ITS | Clinical Summary ---
Author Organization [facility] Address [address] [place] [address] Phone Care Team Providers Care Showroom Manager Name Role Phone Janette Smith MD Primary Care Provider [phone] Allergies Active Allergy Reactions Criticality Noted Date [...] VACCINE (#1) 2025 Insurance MEDICAID Care Teams Showroom Manager Relationship Specialty Start Date End Date Janette Smith MD [address] [place] [phone] PCP - General Pediatrics 04/18/21
--- OUTSIDE RECORDS SUMMARY | 2025-06-12 22:17 | XMS_ITS | Clinical Summary ---
Author Organization [facility] Address [address] [place] [address] Phone Care Team Providers Care Eating Disorder Psychologist Name Role Phone Rhianna Chino MD Primary Care Provider Allergies No known active allergies Medications methylPREDNISol [...] - 04/11/2025 11:59 PM CDT [facility] [address] [place] [address] Rhianna Chino MD Discharge Disposition: Discharged to home or Selfcare 04/11/2025 Travel 03/17/2025 Transcribe Orders [facility] Central Scheduling [address] [place] [address] Rhianna Chino MD Calculus of gallbladder without [...] thickening or pericholecystic fluid. No positive sonographic [place] sign reported. Gallbladder wall measures 0.4 cm. [...] by Juan Carlos JUSTICE: VINH Report ID: [id number] Reading Location: [id number] Procedure Note Juan Carlos Campo MD - [...] thickening or pericholecystic fluid. No positive sonographic [place] sign reported. Gallbladder wall measures 0.4 cm. [...] Carlos Campo M.D. RW: VINH Report ID: [id number] Reading Location: [id number] IMPRESSION: 1. Gallbladder is partially contracted. No definite acute finding. No evidence of cholelithiasis.. Rhianna Chino MD [facility] ORDERABLES Final Resul t from Last 3 Months Insurance MEDICAID [facility] [employer] MEDICAID [employer] Care Teams Eating Disorder Psychologist Relationship Specialty Start Date End Date Rhianna Chino MD [address] [place] [address] PCP - General Family Medicine 03/22/25
--- OUTSIDE RECORDS SUMMARY | 2025-06-12 22:17 | XMS_ITS | Continuity of Care Document ---
Author Organization [facility] Address [address] [place] [address] Phone Care Team Providers Care Contact Center Director Name Role Phone Arguelles OD, Jett Unavailable Unavailable Procedures Procedure Date Eye Exam & Treatment Refraction Advance Directives Directive Yes / No Effective Date File Name No Information Encounters Encounter Description Practice Location Reason(s) For Visit Diagnoses Date Provider Providers Copied on Encounter [facility], [address], [place], [place], [id number], [place] tel:[phone] [address] [facility] No Information 2-[address] 9 Arguelles OD Jett. [address] [facility] , [address], [place], [address], [place]. tel:[phone] Family History Family Member Type Diagnosis Age At Onset No Information Payers Payer name Insurance type Covered democrat ID Authoriza tion(s) Medicaid [facility] [id number] Social History Type Description Quantity Date Captured [...]
--- NOTE | 2025-06-12 22:29 | ED.DENTAL ---
HPI - Dental/Oral General Chief complaint: Dental/Oral Stated complaint: dental infection Time Seen by Provider: 06/12/25 22:08 Source: patient Mode of arrival: ambulatory Limitations: no limitations History of Present Illness HPI Narrative: This is a 24 year old female that presents to the ER for dentalgia. Ongoing over the last week. Reports she is due to have this tooth pulled. Denies fever, swelling. MD Complaint: tooth pain Location: Tooth # (15) Related Data Home Medications ?Medication ?Instructions ?Recorded ?Confirmed ?Last Taken ?Type labetalol 200 mg tablet 200 mg PO DAILY 03/06/24 03/06/24 Unknown History norethindrone (contraceptive) 0.35 0.35 mg PO DAILY 03/06/24 03/06/24 Unknown History mg tablet Allergies Allergy/AdvReac Type Severity Reaction Status Date / Time amoxicillin AdvReac Mild Hives Verified 02/16/25 17:20 clavulanic acid AdvReac Mild Hives Verified 02/16/25 17:20 Review of Systems Review of Systems: All systems reviewed & are unremarkable except as noted in HPI and below PMFSH Past Medical History Medical History Vaginal discharge Depression Acute erythematous tonsillitis UTI (urinary tract infection) Ear infection Surgical History Surgical History History of dental surgery Family History Family History Grandparent Diabetes mellitus Hypertension Mother Bipolar 1 disorder Glaucoma Other Breast cancer Social History Social History Smoking status: Never smoker Alcohol intake: never Substance use: current Substance use type: marijuana Lack of Transportation: No Lack of Food: Never True Current Housing: I Have Housing Concerned About Future Housing: No Difficulty Paying Gas/Electric Bills: No Difficulty Paying for Meds: No Currently Unemployed: No Education: High School Diploma/GED Difficulty w/ Childcare or Family Care: No Living arrangements: with family Occupation/Education: occupation 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 HEAD: Normocephalic, atraumatic. EYES: EOMI. ENT: Nares clear, no rhinorrhea or epistaxis. Mucous membranes moist. Oropharynx without tonsillar hypertrophy exudate or other lesions. Tooth #15 tender to palpation without surrounding edema or fluctuance to suggest abscess NECK: Supple. No adenopathy or masses. CHEST: No respiratory distress. HEART: Regular rate EXTREMITIES: Normal range of motion. No edema. SKIN: Warm, dry, no rash. NEURO: No focal deficits. Alert and oriented x3. PSYCH: Normal mood and affect Course Vital Signs Vital signs: Vital Signs Temperature 98.0 F 06/12/25 21:51 Pulse Rate 74 06/12/25 21:51 Respiratory Rate 16 06/12/25 21:51 Blood Pressure 137/96 H 06/12/25 21:51 Pulse Oximetry 100 06/12/25 21:51 Oxygen Delivery Room Air 06/12/25 21:51 Temperature 98.0 F 06/12/25 21:51 Pulse Rate 74 06/12/25 21:51 Respiratory Rate 16 06/12/25 21:51 Blood Pressure 137/96 H 06/12/25 21:51 Pulse Oximetry 100 06/12/25 21:51 Oxygen Delivery Room Air 06/12/25 21:51 MDM - Dental/Oral MDM Narrative Medical decision making narrative: Patient presents the emergency department for dentalgia. She is afebrile and nontoxic appearing. No abscess noted on exam. Will be started on oral antibiotics. Instructed to follow-up with her dentist. She was given warnings return to the ER Differential Diagnosis Differential diagnosis: Likely dental caries, toothache, dental abscess and fracture of tooth Critical Care Time Critical Care Time Critical Care Time: No Discharge Plan Discharge Clinical Impression: Toothache Patient Disposition: Home Condition: Stable Instructions: Antibiotic Form, Toothache (ED) Additional Instructions: Return to the Emergency Department if you experience fever >101, increasing swelling and redness of your tooth, or any other symptoms that are concerning to you Take antibiotic as prescribed. Tylenol or Ibuprofen as needed for pain. Follow up with your dentist Patient Language: Italian Prescriptions: New clindamycin HCl [Cleocin HCl] 300 mg capsule 300 mg PO Q6H 7 Days Qty: 28 0RF No Action labetalol 200 mg tablet 200 mg PO DAILY norethindrone (contraceptive) 0.35 mg tablet 0.35 mg PO DAILY ofloxacin 0.3 % drops 2 drp RIGHT EYE QID 7 Days Qty: 5 0RF ondansetron 4 mg tablet,disintegrating 4 mg PO Q8H PRN (Reason: nausea and vomiting) Qty: 15 0RF nitrofurantoin monohyd/m-cryst 100 mg capsule 100 mg PO Q12H 5 Days Qty: 10 0RF Rx Instructions: must administer with a meal/food famotidine 20 mg tablet 20 mg PO DAILY Qty: 30 0RF Follow-up/Referrals: Matti,Rhianna Simpson MD [Primary Care Provider] - Stand Alone Forms: Work/School Release IP
== END 2025-06-12 22:40 | disposition home or self-care (01) ==
PROVIDERS: Emergency Provider Physician Assistant; PCP Family Medicine
DX: K08.89 Other specified disorders of teeth and supporting structures (principal); Z87.440 Personal history of urinary (tract) infections; Z79.3 Long term (current) use of hormonal contraceptives; Z79.899 Other long term (current) drug therapy
CPT/HCPCS: 99283